=== PATIENT | female | born 1960 | race Caucasian/White ===

== ENCOUNTER 2019-05-04 03:17 | Observation (INO) | payer OTHER, MEDICARE, SELFPAY ==
[2019-05-04] VITALS (12 sets, daily range): BP systolic 127–171; BP diastolic 75–90; PULSE 55–75; RESP 16–20; TEMP 35.6–36.3; O2SAT 98–100; BMI 32.4
--- NOTE | ~2019-05-04 | CT_ITS ---
EXAMINATION: CTA brain EXAM DATE: 05/04/2019 14:42 INDICATION: New onset severe headache, left side. TECHNIQUE: Noncontrast head CT. Spiral CT angiogram cerebral arteries performed with intravenous in jection of 100 mL Omnipaque 350. Axial, coronal and sagittal images reviewed. Additional reformatted images created on dedicated 3-D workstation. The dose-length product (DLP) for this examination was 1129.98 mGy-cm. The exposure was tailored according to patient size, and iterative reconstruction (ASIR) was used as additional dose reduction technique. There is no prior study for comparison. FINDINGS: Left vertebral artery is dominant. There is no distal carotid or vertebral basilar arteri al dissection or fibromuscular dysplasia. There are no cerebral artery aneurysms. There is symmetric cerebral artery arborization. The sagittal, transverse and sigmoid sinuses enhance normally, no venou s sinus thrombosis. Internal cerebral veins also enhance normally. There is no acute intraparenchymal hemorrhage. No evidence of intraparenchymal brain mass lesion. N o evidence of acute infarction. There is no mass effect or midline shift. There is no obstructive hyd rocephalus suspected. There are no extra-axial collections. There are no calvarial acute fractures. There are no areas of abnormal enhancement on the post contrast images. IMPRESSION: 1. No acute intracranial findings or cerebral artery aneurysm. Reviewed, dictated and finalized at location A.
--- NOTE | ~2019-05-04 | CT_ITS ---
EXAMINATION: CTA chest abdomen pelvis DATE: 05/04/2019 11:46 CDT INDICATION: Chest pain. Hypertension. TECHNIQUE: Computed tomographic angiography (CTA) of the chest, abdomen, and pelvis was performed wit h 100 mL Omnipaque-350 intravenous contrast. The dose-length product was 1108.15 mGy-cm. Maximum inte nsity projection 3D-reconstructions of the aorta and other arteries were constructed by the technolog ist on a separate workstation. COMPARISON: CT dated 02/07/2019. FINDINGS: CHEST CTA: No thoracic lymphadenopathy. No evidence for aortic aneurysm or dissection. Study is technically adeq uate without evidence for pulmonary embolism. No focal airspace consolidation. No pleural or pericard ial effusion. Heart size normal. No suspicious pulmonary nodules or masses. ABDOMEN AND PELVIS CTA: The liver, spleen, pancreas, adrenal glands and kidneys are unremarkable. Gallbladder is surgically a bsent with expected prominence of the bile ducts. Nonobstructive bowel gas pattern. No abnormal pelvi c masses or fluid collections. No free air or free fluid. Small fat-containing umbilical hernia. No a cute bone or joint abnormality. No osteolytic or osteoblastic lesions. IMPRESSION: 1. No acute abnormality of the chest, abdomen or pelvis. Reviewed, dictated and finalized at location A.
--- NOTE | 2019-05-04 03:52 | ECG_ITS ---
Measurements Intervals [place] Rate: 75 P: 62 OR: 137 QRS: 67 QRSD: 92 T: 47 QT: 391 QTc: 437 Interpretive Statements SINUS RHYTHM NORMAL ECG Electronically Signed On 05-04-2019 8:30:07 CDT by Jimmy Leiva D.O.
[2019-05-04] MEDS: NITROGLYCERIN SL 0.4 MG TABLET SUBLINGUAL ×2 (04:00→08:03)
--- NOTE | 2019-05-04 04:10 | ED.CHESTPAIN ---
HPI - Chest Pain General Chief Complaint: Chest Pain <Karena Sandy MD - Last Filed: 05/04/19 06:03> Stated Complaint: cp, back pain and high blood pressure <Karena Sandy MD - Last Filed: 05/04/19 06:03> Time Seen by Provider: 05/04/19 03:33 <Karena Sandy MD - Last Filed: 05/04/19 06:03> Source: patient <Karena Sandy MD - Last Filed: 05/04/19 06:03> Mode of arrival: ambulatory <Karena Sandy MD - Last Filed: 05/04/19 06:03> Limitations: no limitations <Karena Sandy MD - Last Filed: 05/04/19 06:03> History of Present Illness HPI narrative: Patient is a 59-year-old female who presents to the emergency department with complaint of chest and back pain. Patient reports onset of symptoms approximately 24 hours ago. Patient describes the pain as a pressure and tightness in her chest and back. She also reports having right shoulder pain for the past 3 days which preceded the chest and back pain. Patient has history of hypertension and just saw her chromium plater a couple of days ago. She reports her chromium plater had discontinued 1 of her blood pressure medicines a couple of months ago as her blood pressure had improved significantly. When she was seen a few days ago her blood pressure was again elevated and her chromium plater changed her blood pressure medication. Patient has also been noticing some headaches. She also reports stomach issues for which she has been seeing a showroom consultant. Patient denies any history of coronary disease or other cardiac problems aside from high blood pressure. <Karena Sandy MD - Last Filed: 05/04/19 06:03> MD complaint: chest pain <Karena Sandy MD - Last Filed: 05/04/19 06:03> Onset (ago): day(s) (1) <Karena Sandy MD - Last Filed: 05/04/19 06:03> Timing of current episode: constant <Karena Sandy MD - Last Filed: 05/04/19 06:03> Quality: tightness and other (pressure) <Karena Sandy MD - Last Filed: 05/04/19 06:03> Risk Factors Coronary artery disease risk factors: smoking history and hypertension <Karena Sandy MD - Last Filed: 05/04/19 06:03> Related Data Home Medications: Home Medications Medication Instructions Recorded Confirmed atorvastatin 40 mg PO HS 05/04/19 05/04/19 metoprolol succinate 50 mg PO HS 05/04/19 05/04/19 nortriptyline 20 mg PO HS 05/04/19 05/04/19 valsartan 80 mg PO DAILY 05/04/19 05/04/19 <Karena Sandy MD - Last Filed: 05/04/19 06:03> Allergies/Adverse Reactions: Allergies Allergy/AdvReac Type Severity Reaction Status Date / Time Penicillins Allergy Unknown Unknown Verified 05/04/19 07:58 <Karena Sandy MD - Last Filed: 05/04/19 06:03> Review of Systems Review of Systems: All systems reviewed & are unremarkable except as noted in HPI and below <Karena Sandy MD - Last Filed: 05/04/19 06:03> Cardiovascular: Cardiovascular: Reports chest pain <Karena Sandy MD - Last Filed: 05/04/19 06:03> Musculoskeletal: Musculoskeletal: Reports back pain, Reports arthralgias (Right shoulder) and Reports neck pain (Chronic with arm pain) <Karena Sandy MD - Last Filed: 05/04/19 06:03> [facility] Past Medical History Medical History: Medical History (Updated 05/04/19 @ 09:37 by Sigifredo Murguia MD) Arthralgia Cervical spinal stenosis Chronic abdominal pain Hypertension Interstitial cystitis Migraine Other and unspecified hyperlipidemia <Karena Sandy MD - Last Filed: 05/04/19 06:03> Surgical History Surgical History: Surgical History History of cholecystectomy <Karena Sandy MD - Last Filed: 05/04/19 06:03> Family History Family History: Family History Father CAD (coronary artery disease) Cerebral aneurysm
[2019-05-04 04:32] LABS: INR 0.9; Prothrombin Time 11.3 Seconds (11.1-14.7)
[2019-05-04 04:33] LABS: Alanine Aminotransferase 44 U/L (4-35); Albumin Level 4.4 g/dL (3.5-5.1); Alkaline Phosphatase 88 U/L (38-126); Aspartate Amino Transferase 37 U/L (14-36); Bilirubin,Total 0.4 mg/dL (0.2-1.3); Blood Urea Nitrogen 17 mg/dL (7-17); Calcium 9.6 mg/dL (8.4-10.2); Carbon Dioxide 24 mmol/L (22-30); Chloride 105 mmol/L (98-107); Estimated Glomerular Filt Rate > 60; Glucose 97 mg/dL (65-105); Partial Thromboplastin Time 21.3 SECONDS (22.3-36.8); Potassium 3.7 mmol/L (3.4-5.0); Sodium 136 mmol/L (137-145)
[2019-05-04 04:47] LABS: NT Pro B Type Natriuretic Pept 46 PG/ML (5-100); Troponin I < 0.012 ng/mL (0.000-0.034)
[2019-05-04 04:58] LABS: Add Urine Microscopic? YES; Appearance Urine Clear (Clear); Bacteria Urine Trace /hpf; Bilirubin Urine Negative (Negative); Blood Urine Negative (Negative); Color Urine Yellow (Yellow); Glucose Urine UA Negative (Negative); Ketones Urine Negative (Negative); Leukocyte Esterase Ur 1+ LEU/UL (Negative); Mucus Urine Rare /lpf; Nitrate Urine Negative (Negative); Protein Urine Negative (Negative); RBC Urine 0-2 /hpf (0-2); Specific Grav Ur 1.021 (1.001-1.035); Squamous Epithelial Cell Urine Many /hpf (Few); Urobilinogen Urine Negative mg/dL (<2.0)
[2019-05-04 05:29] LABS: Basophils Absolute Auto 0.1 K/mm3 (0.0-0.1); Basophils Percent Auto 0.7 % (0.2-1.2); Eosinophils Absolute Auto 0.2 K/mm3 (0-0.3); Eosinophils Percent Auto 2.6 % (0-4.4); Hematocrit 42.2 % (37.0-47.0); Hemoglobin 13.9 g/dL (12.0-15.0); Immature Granulocyte Absolute 0.03 K/mm3 (0.00-0.031); Immature Granulocyte Percent A 0.4 % (0-0.5); Lymphocytes Absolute Auto 2.99 K/mm3 (0.9-3.2); Lymphocytes Percent Auto 35.6 % (18.3-44.2); Mean Corpuscular HGB Conc 32.9 g/dl (32-36); Mean Corpuscular Hemoglobin 30.5 pg (26-34); Mean Corpuscular Volume 92.5 fl (80-100); Mean Platelet Volume 10.2 fl (7.4-10.4); Monocytes Absolute Auto 0.6 K/mm3 (0.1-0.6); Monocytes Percent Auto 7.3 % (2.6-8.5); Neutrophils Absolute Auto 4.5 K/mm3 (1.3-6.7); Neutrophils Percent Auto 53.4 % (45.5-73.1); Platelet Count Result 304 k/mm3 (150-375); Red Blood Count 4.56 M/mm3 (4.2-5.4); Red Cell Distribution Width 13.1 % (11.5-14.5); White Blood Count 8.4 K/mm3 (4.5-10.0)
[2019-05-04] MEDS: NITROGLYCERIN OINTMENT 1 INCH DOSE TRANSDERM (06:07)
[2019-05-04] MEDS: ACETAMINOPHEN 325 MG TABLET 650 MG PO ×2 (07:25→07:26)
[2019-05-04 07:44] LABS: Troponin I < 0.012 ng/mL (0.000-0.034)
--- NOTE | 2019-05-04 07:48 | ADMGEN ---
This patient, Mireya More, was admitted to IMU Room 206-02. Patient/family oriented to hospital policies and general routines including ID bracelet, bed and alarms, visiting hours, pain management, procedures, bathroom and other care routines, personal items, smoking policy, room service/diet, and visiting hours. Valuables list has been completed. Information on how to activate the Rapid Response Team has been discussed. Patient/Family are encouraged to report perceived risks to care and to ask questions if they do not understand what they are told or what they should do.
[2019-05-04] MEDS: ASPIRIN 81 MG CHEWABLE TABLET PO (08:02)
--- NOTE | 2019-05-04 09:28 | PM.SD ---
Same Day Admit/Disch: HPI History of Present Illness Chief complaint: chest pain, hypertension Narrative: Mireya More is a 59 year old female was in her usual state of health until 1 week prior to admission. She felt throbbing left-sided headache. Moderately severe. No associated neurologic symptoms. She has chronic paresthesias both arms with a history of cervical spine stenosis. This is chronic and worse when she extends the neck. She had no visual symptoms no focal weakness or numbness. She has a history of migraine headaches but has not had any for several years. On April she developed right shoulder pain that radiated to her back and substernal area. It was mild to moderate in nature. Described as a pressure. it was constant. No aggravating or alleviating factors. She did have some increased palpitations and anxiety with the pain. No other associated symptoms such as dizziness lightheadedness or shortness of breath. She has never had similar pain. She quit smoking just a few weeks ago. She has hyperlipidemia and a family history of coronary artery disease in her father. Her blood sugars have been normal. [facility] Past Medical History Medical History (Updated 05/04/19 @ 09:37 by Sigifredo Murguia MD) Arthralgia Cervical spinal stenosis Chronic abdominal pain Hypertension Interstitial cystitis Migraine Other and unspecified hyperlipidemia Surgical History Surgical History History of cholecystectomy Family History Family History Father CAD (coronary artery disease) Cerebral aneurysm Diabetes mellitus Sibling Diabetes mellitus Social History Social History (Updated 05/04/19 @ 09:38 by Sigifredo Murguia MD) Smoking status: Former smoker Additional smoking assessment comments: Quit smoking 1 month ago, previously 1 pack/day Alcohol intake: never Substance use: never Occupation/Education: retired Additional occupation/education comments: disabled Gender identity (if verbalized by the patient): Female Spiritual care concerns: Yes (Spiritism) Agree to blood products: Yes Same Day Admit/Disch: Med Pre-admit Medications Home Medications Medication Instructions Recorded Confirmed Type atorvastatin 40 mg PO HS 05/04/19 05/04/19 History metoprolol succinate 50 mg PO HS 05/04/19 05/04/19 History nortriptyline 20 mg PO HS 05/04/19 05/04/19 History valsartan 80 mg PO DAILY 05/04/19 05/04/19 History Exam Narrative: Exam Narrative: HEENT: EOMI, PERRL,sclerae nonicteric, pharyngeal mucosa pink and intact NECK: No JVD, adenopathy, or thyromegaly CHEST: Clear to auscultation. Normal effort. HEART: NL S1/S2, regular, no murmur ABDOMEN: BS+, soft, nontender, no mass, no bruits EXTREMITIES: No cyanosis, edema, or clubbing NEUROLOGIC: CN intact and symmetric to inspection. DTR intact in both upper and lower extremities and symmetric. Babinski's negative. MUSCULOSKELETAL: Tone and strength symmetric. Extension of neck causes posterior neck pain. Range of motion and strength in upper extremities unremarkable without producing pain. PSYCH: Alert. Oriented to person, place, and time. She is very emotional and intermittently tearful when discussing her medical history. DS: Data Data Completed and Pending Labs on day of discharge: Labs from last 24 hours 05/04/19 05/04/19 05/04/19 07:07 05:25 04:33 WBC 8.4 RBC 4.56 Hgb 13.9 Hct 42.2 MCV 92.5 MCH 30.5 MCHC 32.9 RDW 13.1 Plt Count 304 MPV 10.2 Immature Gran % (Auto) 0.4 Neut % (Auto) 53.4 Lymph % (Auto) 35.6 [place] % (Auto) 7.3 Eos % (Auto) 2.6 Baso % (Auto) 0.7 Lymph # (Auto) 2.99 [place] # (Auto) 0.6 Eos # (Auto) 0.2 Baso # (Auto) 0.1 Abs Immat Gran (auto) 0.03 Absolute Neuts (auto) 4.5 Absolute Nucleated RBC 0.0 Nucleated RBC % 0.0
[2019-05-04 10:33] LABS: Troponin I < 0.012 ng/mL (0.000-0.034)
[2019-05-04] MEDS: VALSARTAN 40 MG TABLET PO (11:46)
[2019-05-04] MEDS: IBUPROFEN 400 MG TABLET 800 MG PO (11:56)
[2019-05-04] MEDS: METOPROLOL SUCCINATE EXT REL 50 MG TABCR PO (17:39)
== END 2019-05-04 18:20 | disposition home or self-care (01) ==
LOC: ANHED 05:10 → ANHIMU 09:51
PROVIDERS: Admitting Provider Internal Medicine; Emergency Provider Emergency Medicine; PCP Nurse Practitioner Family; Visit Provider Internal Medicine
DX: R07.9 Chest pain, unspecified (principal); I10 Essential (primary) hypertension; R10.9 Unspecified abdominal pain; G89.29 Other chronic pain; M25.511 Pain in right shoulder; R51 Headache; M48.02 Spinal stenosis, cervical region; E78.5 Hyperlipidemia, unspecified; Z79.899 Other long term (current) drug therapy; Z87.891 Personal history of nicotine dependence; Z82.49 Family history of ischemic heart disease and other diseases of the circulatory system
CPT/HCPCS: 36415; 70496; 71275; 74174; 80053; 81001; 83880; 84484; 85025; 85610; 85730; 87086; 87088; 93005; 99199; 99285; A9270; Q9967

== ENCOUNTER 2019-12-24 15:32 | Outpatient (CLI) | payer OTHER, MEDICARE, SELFPAY ==
--- NOTE | ~2019-12-24 | MM_ITS ---
EXAMINATION: MM screening [facility] BI w angela HISTORY: Screening mammogram TECHNIQUE: Craniocaudal and mediolateral oblique 3-D tomosynthesis images were obtained and synthetic 2-D images were generated. CAD analysis was submitted and interpreted. COMPARISON: 12/04/2018, 01/29/2018, 11/01/2017 bilateral digital mammogram examinations BREAST PARENCHYMAL COMPOSITION: The breasts are almost entirely fatty. FINDINGS: There is no evidence of suspicious mass, calcification, or architectural distortion to sugg est malignancy in either breast. There has been no suspicious interval change. IMPRESSION: 1. No mammographic evidence of malignancy. 2. Recommend routine screening mammography in one year. BI-RADS Category 1: Negative Reviewed, dictated and finalized at location A.
== END 2019-12-24 15:33 | disposition home or self-care (01) ==
LOC: ANHIMG 15:35
PROVIDERS: PCP Physician Assistant; Visit Provider Physician Assistant
DX: Z12.31 Encounter for screening mammogram for malignant neoplasm of breast (principal)
CPT/HCPCS: 77063; 77067

== ENCOUNTER → 2020-01-01 12:40 | Outpatient (CLI) | payer OTHER, MEDICARE, SELFPAY ==
--- NOTE | ~2020-01-01 | XR_ITS ---
EXAMINATION: XR cervical spine 4-5V DATE: 01/01/2020 13:33 INDICATION: Cervical radiculopathy. TECHNIQUE: 4 views of cervical spine were obtained. COMPARISON: None. FINDINGS: There is 6 degrees dextrocurvature of cervical spine. There is 2 mm retrolisthesis of C4 on C5 and C5 on C6. Vertebral body heights are normal. There is mildly decreased disc height at C4-C5 a nd moderately decreased disc height at C5-C6 and C6-C7. There is multilevel mild facet joint osteoart hritis. There is multilevel uncovertebral joint osteoarthritis, severe bilaterally at C5-C6 and C6-C7 . There is mild central canal stenosis at C4-C5, C5-C6, and C6-C7. No prevertebral soft tissue swelli ng. IMPRESSION: 1. Moderate cervical spondylosis. Reviewed, dictated and finalized at location A. CHILLA FARMER
--- NOTE | ~2020-01-01 | XR_ITS ---
EXAMINATION: XR lumbar spine 2-3V DATE: 01/01/2020 13:33 INDICATION: Lumbar radiculopathy. TECHNIQUE: 3 views of lumbar spine were obtained. COMPARISON: CT abdomen and pelvis 02/07/2019 FINDINGS: There is 3 degrees dextrocurvature of lumbar spine. Vertebral body heights and intervertebr al disc heights are normal. There are endplate osteophytes at most levels. There is multilevel severe facet joint osteoarthritis in lumbar spine. IMPRESSION: 1. Mild lumbar spondylosis. Reviewed, dictated and finalized at location A. WHEELER IMPRESSION: 1. Mild lumbar spondylosis.
== END ==
PROVIDERS: PCP Physician Assistant; Visit Provider Pain Medicine Interventional Pain Medicine
DX: E66.9 Obesity, unspecified (principal); F33.1 Major depressive disorder, recurrent, moderate; F41.1 Generalized anxiety disorder; G56.03 Carpal tunnel syndrome, bilateral upper limbs; M47.22 Other spondylosis with radiculopathy, cervical region; M47.23 Other spondylosis with radiculopathy, cervicothoracic region; M47.896 Other spondylosis, lumbar region
CPT/HCPCS: 72050; 72100

== ENCOUNTER 2020-08-09 14:27 | Outpatient (CLI) | payer OTHER, MEDICARE, SELFPAY ==
--- NOTE | ~2020-08-09 | MR_ITS ---
EXAMINATION: MR lumbar spine wo con DATE: 08/09/2020 15:12 INDICATION: Lumbar radiculopathy. TECHNIQUE: Magnetic resonance imaging (MRI) of the lumbar spine was performed without intravenous con trast. Sequences included sagittal T2-weighted FSE, sagittal T2-weighted FS FSE, sagittal T1-weighted FSE, and axial T2-weighted FSE. COMPARISON: Lumbar spine radiographs dated 01/01/2020 FINDINGS: 7 degree lumbar dextroscoliosis. 2 mm retrolisthesis L2 on L3. Vertebral body heights are normal. T1 hyperintense hemangioma at L1. Fibrovascular degenerative endplate changes at L2-L3 and at the rey superior margins of T11 and T12. Marrow signal is otherwise unremarkable. Mild disc height loss at T1 0-T11, T11-T12 and L2-L3. Disc desiccation without significant disc height loss at L3-L4 and L4-L5. T he conus medullaris terminates at L2-L3. There is normal signal in the caudal spinal cord. Paraverteb ral soft tissues are unremarkable. The following disc levels are specifically discussed: T12-L1: Disc is mildly bulging. There is moderate bilateral facet joint osteoarthritis. There is mild left neural foraminal stenosis. There is minimal central canal stenosis. L1-L2: Disc is mildly bulging. There is mild hypertrophy of the ligamentum flavum. There is severe b ilateral facet joint osteoarthritis. There is minimal bilateral neural foraminal stenosis. There is m ild central canal stenosis. L2-L3: Disc is bulging. There is hypertrophy of the ligamentum flavum. There is moderate left and sev ere right facet joint osteoarthritis. There is moderate left and mild to moderate right neural forami nal stenosis. There is moderate to severe central canal stenosis with minimal CSF signal surrounding the centrally clustered nerve roots. L3-L4: Disc is bulging. There is hypertrophy of the ligamentum flavum. There is moderate to severe bi lateral facet joint osteoarthritis. There is moderate left and mild to moderate right neural foramina l stenosis. There is moderate central canal stenosis. L4-L5: Disc is bulging. There is hypertrophy of the ligamentum flavum. There is severe bilateral face t joint osteoarthritis. There is moderate right and mild to moderate left neural foraminal stenosis. There is moderate central canal stenosis. L5-S1: The disc does not extend beyond the endplate margin. There is severe bilateral facet joint ost eoarthritis. There is mild bilateral neural foraminal stenosis. There is no central canal stenosis. IMPRESSION: 1. Mild lumbar dextrocurvature. 2. Lumbar spondylosis with multilevel mild degenerative disc disease, moderate to severe facet osteoa rthritis, multilevel mild to moderate neural foraminal stenosis and moderate to severe central canal stenosis at L2-L3 through L4-L5 Reviewed, dictated and finalized at location A. IMPRESSION: 1. Mild lumbar dextrocurvature. 2. Lumbar spondylosis with multilevel mild degenerative disc disease, moderate to severe facet osteoarthritis, multilevel mild to moderate neural foraminal st enosis and moderate to severe central canal stenosis at L2-L3 through L4-L5
== END 2020-08-09 14:28 ==
PROVIDERS: PCP Physician Assistant
DX: M47.26 Other spondylosis with radiculopathy, lumbar region (principal); M51.36 Other intervertebral disc degeneration, lumbar region
CPT/HCPCS: 72148

== ENCOUNTER 2020-12-27 14:52 | Outpatient (CLI) | payer OTHER, MEDICARE, SELFPAY ==
--- NOTE | ~2020-12-27 | MM_ITS ---
EXAMINATION: MM screening [facility] BI w angela HISTORY: Screening TECHNIQUE: Craniocaudal and mediolateral oblique 3-D tomosynthesis images were obtained and synthetic 2-D images were generated. CAD analysis was submitted and interpreted. COMPARISON: 11/01/2017 BREAST PARENCHYMAL COMPOSITION: There are scattered areas of fibroglandular density. FINDINGS: There is no evidence of suspicious mass, calcification, or architectural distortion to sugg est malignancy in either breast. There has been no suspicious interval change. IMPRESSION: 1. No mammographic evidence of malignancy. 2. Recommend routine screening mammography in one year. BI-RADS Category 1: Negative Reviewed, dictated and finalized at location A.
== END 2020-12-27 14:53 | disposition home or self-care (01) ==
LOC: ANHIMG 14:58
PROVIDERS: PCP Physician Assistant; Visit Provider Physician Assistant
DX: Z12.31 Encounter for screening mammogram for malignant neoplasm of breast (principal)
CPT/HCPCS: 77063; 77067

== ENCOUNTER 2021-01-12 13:16 | Outpatient (CLI) | payer OTHER, MEDICARE, SELFPAY ==
--- NOTE | ~2021-01-12 | XR_ITS ---
EXAMINATION: XR shoulder LT min 2V DATE: 01/12/2021 14:04 INDICATION: Left rotator cuff tear. TECHNIQUE: 4 views of left shoulder were obtained. COMPARISON: None. FINDINGS: Bone alignment is normal. No fracture. Glenohumeral joint is normal. There is mild acromioc lavicular joint osteoarthritis. IMPRESSION: 1. Mild left acromioclavicular joint osteoarthritis. Reviewed, dictated and finalized at location A. LIFT MECHANIC
--- NOTE | ~2021-01-12 | MR_ITS ---
EXAMINATION: MR cervical spine wo con EXAM DATE: 01/12/2021 15:03 INDICATION: Radiculopathy, cervical region Radiculopathy. TECHNIQUE: Multi-sequential, multiplanar MR images of the cervical spine were obtained without contra st. Axial T2, axial T2 MERGE sequence. Sagittal T1, T2, T2 fat saturation images also obtained. Th ere is no prior study for comparison. FINDINGS: There is moderate loss of the C5-6 disc height, mild to moderate at C6-7 and mild at C3-4. The vertebral bodies are aligned in the AP dimension. The spinal cord signal intensity and intrinsic morphology is normal. Cervicomedullary junction is normal in appearance. There are no suspicious mar row signal abnormalities. Paraspinal soft tissue is unremarkable. Small right maxillary sinus retent ion cyst or polyp. Level by level evaluation: C2-C3: Disc does not extend beyond the endplate margin. Uncovertebral joint arthropathy: None. Facet joint arthropathy: Mild bilateral. Neural foraminal stenosis: No stenosis. Central canal stenosis: No stenosis. C3-C4: Disc does not extend beyond the endplate margin. Uncovertebral joint arthropathy: None. Facet joint arthropathy: Mild bilateral. Neural foraminal stenosis: No stenosis. Central canal stenosis: No stenosis. C4-C5: There is a mild diffuse disc bulge. Uncovertebral joint arthropathy: Mild to moderate left, mild right. Facet joint arthropathy: Mild to moderate bilateral. Neural foraminal stenosis: Mild bilateral. Central canal stenosis: Mild. C5-C6: There is a mild to moderate diffuse disc bulge asymmetric to the right, causing some flattenin g of the spinal cord, but no cord edema, no acute compression. Uncovertebral joint arthropathy: Severe right, moderate left. Facet joint arthropathy: Mild to moderate bilateral. Neural foraminal stenosis: Severe right, moderate to severe left. Central canal stenosis: Mild to moderate . Central canal measures 6-7 mm in mid sagittal AP diameter . C6-C7: There is a mild diffuse disc bulge. Uncovertebral joint arthropathy: Moderate left, mild to moderate right. Facet joint arthropathy: Mild bilateral. Neural foraminal stenosis: Moderate to severe left, mild to moderate right. Central canal stenosis: Mild. C7-T1: There is a mild diffuse disc bulge. Uncovertebral joint arthropathy: Mild bilateral. Facet joint arthropathy: Mild bilateral. Neural foraminal stenosis: Mild right. Central canal stenosis: No stenosis. IMPRESSION: 1. Cervical spondylosis with C5-6, 6-7 neural foramen most narrowed. 2. Mild cord flattening from disc bulge at C5-6 without acute cord compression. Reviewed, dictated and finalized at location B. ECTIONERY COOKER IMPRESSION: 1. Cervical spondylosis with C5-6, 6-7 neural foramen most narrowed. 2. Mild cord flattening from disc bulge at C5-6 without acute cord compression .
--- NOTE | ~2021-01-12 | XR_ITS ---
EXAMINATION: XR shoulder RT min 2V DATE: 01/12/2021 14:03 INDICATION: Right shoulder pain. TECHNIQUE: 5 views of right shoulder were obtained. COMPARISON: None. FINDINGS: Bone alignment is normal. No fracture. Glenohumeral joint is normal. There is mild acromioc lavicular joint osteoarthritis. IMPRESSION: 1. Mild right acromioclavicular joint osteoarthritis. Reviewed, dictated and finalized at location A. FLOOR WORKER
== END 2021-01-12 13:17 ==
PROVIDERS: PCP Physician Assistant
DX: M47.22 Other spondylosis with radiculopathy, cervical region (principal); M19.011 Primary osteoarthritis, right shoulder; M19.012 Primary osteoarthritis, left shoulder
CPT/HCPCS: 72141; 73030

== ENCOUNTER → 2022-01-04 13:44 | Outpatient (CLI) | payer OTHER, MEDICARE, SELFPAY ==
--- NOTE | ~2022-01-04 | XR_ITS ---
EXAMINATION:XR cervical spine 4-5V DATE: 01/04/2022 14:29 INDICATION: Neck pain TECHNIQUE: AP, lateral, lateral swimmers and odontoid views of the cervical spine are provided. COMPARISON: 01/01/2020 FINDINGS: There are 2 mm of stable retrolisthesis of C4 on C5 and C5 on C6. The odontoid is intact. N o fracture is identified. The vertebral body heights are normal. There is unchanged mild loss of inte rvertebral disc space height at C4-5 and moderate loss of disc space height at C5-6 and C6-7. There i s mild multilevel facet joint osteoarthritis and severe multilevel uncovertebral joint osteoarthritis . IMPRESSION: 1. Moderate cervical spondylosis without acute findings or significant interval change. Reviewed, dictated and finalized at location B. CRUSHER OPERATOR
--- NOTE | ~2022-01-04 | XR_ITS ---
EXAMINATION: XR lumbar spine 2-3V DATE: 01/04/2022 14:29 INDICATION: Low back pain TECHNIQUE: Anteroposterior and lateral views of the lumbar spine, and cone-down lateral view of the l umbosacral junction were obtained. COMPARISON: 01/01/2020 FINDINGS: There is no fracture, dislocation, or subluxation. There is mild loss of intervertebral dis c space height at L2-3 and L3-4. Small degenerative osteophytes project from the anterior endplates o f multiple vertebral bodies. There is severe facet joint osteoarthritis of the lower lumbar spine. Ch olecystectomy clips are noted in the right upper quadrant. IMPRESSION: 1. Mild lumbar spondylosis without acute findings or significant interval change. Reviewed, dictated and finalized at location B. HANDISING ASSISTANT IMPRESSION: 1. Mild lumbar spondylosis without acute findings or significant interval viri mullins
== END ==
PROVIDERS: PCP Physician Assistant; Visit Provider Pain Medicine Interventional Pain Medicine
DX: M47.892 Other spondylosis, cervical region (principal); M47.896 Other spondylosis, lumbar region
CPT/HCPCS: 72050; 72100

== ENCOUNTER 2022-02-25 12:00 | Outpatient (CLI) | payer OTHER, MEDICARE, SELFPAY ==
--- NOTE | ~2022-02-25 | MM_ITS ---
EXAMINATION: MM screening [facility] BI w angela HISTORY: Screening mammogram TECHNIQUE: Craniocaudal and mediolateral oblique 3-D tomosynthesis images were obtained and synthetic 2-D images were generated. CAD analysis was submitted and interpreted. COMPARISON: 12/27/2020, 12/24/2019, 12/04/2018 bilateral screening mammogram examinations BREAST PARENCHYMAL COMPOSITION: The breasts are almost entirely fatty. FINDINGS: There is no evidence of suspicious mass, calcification, or architectural distortion to sugg est malignancy in either breast. There has been no suspicious interval change. IMPRESSION: 1. No mammographic evidence of malignancy. 2. Recommend routine screening mammography in one year. BI-RADS Category 1: Negative Reviewed, dictated and finalized at location A. L AID
== END 2022-02-25 12:01 | disposition home or self-care (01) ==
LOC: ANHIMG 12:11
PROVIDERS: PCP Physician Assistant; Visit Provider Physician Assistant
DX: Z12.31 Encounter for screening mammogram for malignant neoplasm of breast (principal)
CPT/HCPCS: 77063; 77067

== ENCOUNTER → 2023-04-03 14:16 | Outpatient (CLI) | payer OTHER, MEDICARE, SELFPAY ==
--- NOTE | ~2023-04-03 | XR_ITS ---
Cervical Spine: AP, lateral, open-mouth views Clinical History: Pain Findings: No acute fracture seen. There is 3 mm retrolisthesis of C4 over C5. There is moderate degen erative disc narrowing at C5-C6. Pre-vertebral soft tissues are unremarkable. Impression: 3 mm retrolisthesis of C4 over C5. Degenerative disc narrowing, as above. Reviewed, dictated and finalized at [facility]. OPEDIC BRACE MAKER Impression: 3 mm retrolisthesis of C4 over C5. Degenerative disc narrowing, as above.
--- NOTE | ~2023-04-03 | XR_ITS ---
Thoracic spine: Clinical Indication: Back pain AP and lateral views were performed. No fracture is seen. There is normal alignment of the vertebrae. The intervertebral disc spaces appe ar normal. Paravertebral soft tissues appear normal. Impression: No significant abnormalities noted. Reviewed, dictated and finalized at [facility] and [facility]. RVISOR FILTER ASSEMBLY Impression: No significant abnormalities noted.
--- NOTE | ~2023-04-03 | XR_ITS ---
Lumbosacral Spine: AP and lateral views Clinical History: Pain Findings: The normal lordotic curve is maintained. The vertebral bodies and posterior elements are i ntact. The intervertebral disc spaces are preserved. There is moderate to advanced facet arthropathy , especially the lower lumbar spine. The sacroiliac joints are normally outlined. Impression: Facet arthropathy, as detailed above. Reviewed, dictated and finalized at location . F CLINICAL DIETITIAN Impression: Facet arthropathy, as detailed above.
== END ==
PROVIDERS: PCP Pain Medicine Interventional Pain Medicine; Visit Provider Pain Medicine Interventional Pain Medicine
DX: M47.22 Other spondylosis with radiculopathy, cervical region (principal); M47.23 Other spondylosis with radiculopathy, cervicothoracic region; M47.26 Other spondylosis with radiculopathy, lumbar region; M47.27 Other spondylosis with radiculopathy, lumbosacral region
CPT/HCPCS: 72040; 72072; 72100

== ENCOUNTER 2023-05-03 10:29 | Outpatient (CLI) | payer OTHER, MEDICARE, SELFPAY ==
--- NOTE | ~2023-05-03 | XR_ITS ---
Right wrist Technique: PA, oblique, lateral, and ulnar deviation views were obtained. Clinical History: Pain Findings: No acute fracture or dislocation is seen. Osseous alignment is anatomic. Joint spaces are p reserved. Soft tissues are unremarkable. Impression: Unremarkable right wrist radiographs. Reviewed, dictated and finalized at location . KE WARFARE/MISSILE SYSTEMS OFFICER Impression: Unremarkable right wrist radiographs.
--- NOTE | ~2023-05-03 | XR_ITS ---
Left wrist Technique: PA, oblique, lateral, and ulnar deviation views were obtained. Clinical History: Pain Findings: No acute fracture or dislocation is seen. Osseous alignment is anatomic. Joint spaces are p reserved. Soft tissues are unremarkable. Impression: Unremarkable left wrist radiographs. Reviewed, dictated and finalized at location . MAKER HELPER Impression: Unremarkable left wrist radiographs.
--- NOTE | ~2023-05-03 | XR_ITS ---
Left elbow Technique: AP and lateral views were obtained. Clinical History: Pain Findings: No acute fracture or dislocation is seen. Osseous alignment is anatomic. Joint spaces are p reserved. There is no displacement of the fat pads, and soft tissues are unremarkable. Impression: Unremarkable radiographs. Reviewed, dictated and finalized at location . TS ANNOUNCER Impression: Unremarkable radiographs.
--- NOTE | ~2023-05-03 | XR_ITS ---
Right elbow Technique: AP and lateral views were obtained. Clinical History: Pain Findings: No acute fracture or dislocation is seen. Osseous alignment is anatomic. Joint spaces are p reserved. There is no displacement of the fat pads, and soft tissues are unremarkable. Impression: Unremarkable radiographs. Reviewed, dictated and finalized at location . STITCH WAISTLINE JOINER Impression: Unremarkable radiographs.
== END 2023-05-03 10:30 ==
LOC: MICIMG 10:32
PROVIDERS: PCP Pain Medicine Interventional Pain Medicine; Visit Provider Pain Medicine Interventional Pain Medicine
DX: G89.4 Chronic pain syndrome (principal); M47.27 Other spondylosis with radiculopathy, lumbosacral region; M47.26 Other spondylosis with radiculopathy, lumbar region; M47.23 Other spondylosis with radiculopathy, cervicothoracic region; M47.22 Other spondylosis with radiculopathy, cervical region
CPT/HCPCS: 73070; 73110

== ENCOUNTER 2023-08-20 14:38 | Outpatient (CLI) | payer OTHER, MEDICARE, SELFPAY ==
--- NOTE | ~2023-08-20 | MM_ITS ---
EXAMINATION: MM screening mariam BI w angela HISTORY: Screening mammogram TECHNIQUE: Craniocaudal and mediolateral oblique 3-D tomosynthesis images were obtained and synthetic 2-D images were generated. CAD analysis was submitted and interpreted. COMPARISON: 02/25/2022, 12/27/2020, 12/24/2019 BREAST PARENCHYMAL COMPOSITION:Not Dense. The breasts are almost entirely fatty FINDINGS: No suspicious mass, calcification, or architectural distortion are identified in either aurora ast to suggest malignancy. There has been no suspicious interval change. IMPRESSION: No mammographic evidence of malignancy. Recommend routine screening mammography in one year. BI-RADS Category 1: Negative Reviewed, dictated and finalized at location .
== END 2023-08-20 14:39 | disposition home or self-care (01) ==
LOC: ANHIMG 14:40
PROVIDERS: Visit Provider Physician Assistant
DX: Z12.31 Encounter for screening mammogram for malignant neoplasm of breast (principal)
CPT/HCPCS: 77063; 77067

== ENCOUNTER 2024-01-07 10:31 | Emergency (ER) | payer OTHER, MEDICARE, SELFPAY ==
--- NOTE | ~2024-01-07 | CT_ITS ---
CT abdomen pelvis w con Ordering provider: Hai Cueva MD History: 63 years Female with . ab pain . Comparison: None. Technique: CT abdomen and pelvis with IV and without oral contrast. Automated exposure control and it erative reconstruction technique were employed. The dose-length product was 1038.39 mGy-cm. 100 mL Om nipaque 350 was given IV. Findings: VISUALIZED LOWER CHEST: Atelectasis in the middle lobe. Trace of pericardial effusion. UPPER ABDOMINAL ORGANS: Liver: Mild fat infiltration. CBD measures 1.5 cm. Minimal dilatation of the intrahepatic ducts. Gallbladder: Status post cholecystectomy. Spleen: Normal. Stomach/duodenum: Normal. Pancreas: Normal. Adrenals: Normal. Kidneys: Tiny stone in the left kidney upper pole. Possible stones in the left kidney mid and lower p ole. PELVIC ORGANS: The bladder is underfilled with slightly thickened wall. Evaluation for cystitis advis ed. BOWEL AND MESENTERY: Colon: No evidence of diverticulitis. Fecal material is loaded in the right side of the colon. Normal appendix. Small Bowel: Normal. No obstruction. Peritoneum/mesentery: No free air or free fluid. No mesenteric lymphadenopathy. RETROPERITONEUM: Mild atheromatous disease of the abdominal aorta. Narrowing of the origin of the ce liac artery. No retroperitoneal lymphadenopathy. MUSCULOSKELETAL: Superficial soft tissues: Small fat-containing umbilical hernia. Otherwise, The superficial soft tiss ues are normal. Bones: Age appropriate degenerative changes of the spine. IMPRESSION: 1. No evidence of appendicitis, diverticulitis or intestinal obstruction. 2. Slight intrahepatic biliary dilatation with dilated CBD. 3. Tiny left kidney stone. 4. Constipation. 5. Atelectasis in the right middle lobe. Trace of pericardial effusion. Reviewed, dictated and finalized at location A. CTOR OF LITIGATION
[2024-01-07 10:42] VITALS: BP 114/88; PULSE 58; RESP 20; TEMP 36.6; O2SAT 100
--- NOTE | 2024-01-07 12:43 | ED.GENADULT ---
HPI - General Adult General Chief complaint: Abdominal Pain Stated complaint: abd pain Time Seen by Provider: 01/07/24 12:20 History of Present Illness HPI narrative: 63-year-old female presents to the emergency department for evaluation for upper abdominal pain that is reminiscent to her prior episodes of pancreatitis. Patient does have prior history gallbladder sludging cholecystitis. Patient does have a prior history of cholecystectomy. Patient denies any alcohol consumption. Related Data Home Medications Medication Instructions Recorded Confirmed atorvastatin 40 mg tablet 40 mg PO HS 05/04/19 05/04/19 metoprolol succinate 50 mg 50 mg PO HS 05/04/19 05/04/19 tablet,extended release 24 hr nortriptyline 10 mg capsule 20 mg PO HS 05/04/19 05/04/19 valsartan 80 mg tablet 80 mg PO DAILY 05/04/19 05/04/19 Allergies Allergy/AdvReac Type Severity Reaction Status Date / Time Penicillins Allergy Unknown Unknown Verified 01/07/24 10:44 Review of Systems Review of Systems: All systems reviewed & are unremarkable except as noted in HPI and below PMFSH Past Medical History Medical History (Updated 01/07/24 @ 16:28 by Hai Cueva MD) Arthralgia Cervical spinal stenosis Chronic abdominal pain Hypertension Interstitial cystitis Migraine Other and unspecified hyperlipidemia Surgical History Surgical History (Updated 01/02/24 @ 01:00 by Keisha Guadalupe MD) History of cholecystectomy 1995 Family History Family History Father CAD (coronary artery disease) Cerebral aneurysm Diabetes mellitus Sibling Diabetes mellitus Social History Social History (Updated 05/04/19 @ 09:38 by Sigifredo Murguia MD) Smoking status: Former smoker Additional smoking assessment comments: Quit smoking 1 month ago, previously 1 pack/day Alcohol intake: never Substance use: never Occupation/Education: retired Additional occupation/education comments: disabled Gender identity (if verbalized by the patient): Female Spiritual care concerns: Yes ([employer]) Agree to blood products: Yes Exam Narrative: APPEARANCE: Uncomfortable appearing HEAD: normocephalic, atraumatic. EYES: PERRLA/EOMI, conjunctivae clear. NOSE: Normal no drainage EARS:TMS clear with good light reflex. THROAT: Pharynx clear, no exudate. NECK: Supple. No adenopathy, no masses. RESPIRATORY: Airway patent, respirations nonlabored. Clear to auscultation bilaterally, no rales, rhonchi, wheezing. CARDIOVASCULAR: Regular rate and rhythm without murmurs rubs or gallops. ABDOMINAL: Epigastric tenderness to palpation MUSCULOSKELETAL: Moves all extremities. Strength/ROM intact, No edema, No calf tenderness. NEURO: Alert. Cranial nerves II through XII intact. Good gait. Good coordination SKIN: Warm, dry. Normal Color Course Vital Signs Vital signs: Vital Signs Temperature 97.9 F 01/07/24 10:42 Pulse Rate 58 L 01/07/24 10:42 Respiratory Rate 20 01/07/24 10:42 Blood Pressure 114/88 01/07/24 10:42 Pulse Oximetry 100 01/07/24 10:42 Oxygen Delivery Room Air 01/07/24 10:42 Temperature 97.9 F 01/07/24 10:42 Pulse Rate 60 01/07/24 16:40 Respiratory Rate 16 01/07/24 16:40 Blood Pressure 145/76 H 01/07/24 16:40 Pulse Oximetry 100 01/07/24 16:40 Oxygen Delivery Room Air 01/07/24 10:42 Medical Decision Making MDM Narrative Medical decision making narrative: 63-year-old female presents to the emergency department for evaluation for epigastric pain that felt similar to her previous pancreatitis. Patient is afebrile with no leukocytosis and hemoglobin of 14.4. Patient has no significant abnormalities on her CMP but does have a mildly elevated lipase. UA was negative for infection. CT scan showed normal pancreas with no other acute pathology. On re-evaluation patient does feel improved and appears to be in no significant distress. Patient was advised to follow a clear liquid diet and is being provided medication for pain control and nausea control. Patient was encouraged on reasons to return to the emergency department. All questions concerns were addressed. Patient does have follow-up with GI on Sunday. Differential Diagnosis Differential Diagnosis: Colitis, diverticulitis, appendicitis, pancreatitis, bowel obstruction Vital Signs Vital Signs: Vital Signs Temperature 97.9 F 01/07/24 10:42 Pulse Rate 58 L 01/07/24 10:42 Respiratory Rate 20 01/07/24 10:42 Blood Pressure 114/88 01/07/24 10:42 Pulse Oximetry 100 01/07/24 10:42 Oxygen Delivery Room Air 01/07/24 10:42 Temperature 97.9 F 01/07/24 10:42 Pulse Rate 60 01/07/24 16:40 Respiratory Rate 16 01/07/24 16:40 Blood Pressure 145/76 H 01/07/24 16:40 Pulse Oximetry 100 01/07/24 16:40 Oxygen Delivery Room Air 01/07/24 10:42 Lab Data Lab results reviewed: Yes I reviewed the patient's lab results. 01/07/24 12:42 01/07/24 13:48 Labs: Lab Results 01/07/24 01/07/24 01/07/24 Range/Units 12:42 12:48 13:48 WBC 8.9 (4.5-10.0) K/mm3 RBC 4.64 (4.2-5.4) M/mm3 Hgb 14.4 (12.0-15.0) g/dL Hct 42.1 (37.0-47.0) % MCV 90.7 (80-100) fl MCH 31.0 (26-34) pg MCHC 34.2 (32-36) g/dl RDW 13.4 (11.5-14.5) % Plt Count 319 (150-375) k/mm3 MPV 10.1 (7.4-10.4) fl Immature Gran % (Auto) 0.3 (0-0.5) % Neut % (Auto) 54.3 (45.5-73.1) % Lymph % (Auto) 32.7 (18.3-44.2) % [place] % (Auto) 8.3 (2.6-8.5) % Eos % (Auto) 3.5 (0-4.4) % Baso % (Auto) 0.9 (0.2-1.2) % Lymph # (Auto) 2.90 (0.9-3.2) K/mm3 [place] # (Auto) 0.7 H (0.1-0.6) K/mm3 Eos # (Auto) 0.3 (0-0.3) K/mm3 Baso # (Auto) 0.1 (0.0-0.1) K/mm3 Abs Immat Gran (auto) 0.03 (0.00-0.031) K/mm3 Absolute Neuts (auto) 4.8 (1.3-6.7) K/mm3 Absolute Nucleated RBC 0.000 (0.0-0.012) K/mm3 Nucleated RBC % 0.0 (0.0-0.2) % Sodium 136 L (137-145) mmol/L Potassium 3.4 (3.4-5.0) mmol/L Chloride 101 (98-107) mmol/L Carbon Dioxide 31 H (22-30) mmol/L Anion Gap 4 (4-12) mmol/L BUN 21 H (7-17) mg/dL Creatinine 0.70 (0.7-1.0) mg/dL Estim Creat Clear Calc 79 ml/min Estimated GFR > 60 (59 - ) Glucose 92 (65-110) mg/dL Calcium 8.9 (8.4-10.2) mg/dL Total Bilirubin 0.5 (0.2-1.3) mg/dL AST 29 (14-36) U/L ALT 31 (6-35) U/L Alkaline Phosphatase 77 (38-126) U/L Total Protein 7.0 (6.3-8.2) g/dL Albumin 4.0 (3.5-5.1) g/dL Lipase 885 H (23-300) U/L Urine Color Yellow (Yellow) Urine Appearance Clear (Clear) Urine pH 7.5 (5.0-9.0) Ur Specific [place] 1.012 (1.001-1.035) Urine Protein Negative (Negative) mg/dL Urine Glucose (UA) Negative (Negative) mg/dL Urine Ketones Negative (Negative) mg/dL Ur Blood (Man) Negative (Negative) Urine Nitrate Negative (Negative) Urine Bilirubin Negative (Negative) Urine Urobilinogen 0.2 (<2.0) mg/dL Add Ur Microanalysis Reviewed Leukocyte Esterase Rfl 1+ H (Negative) EUGENIA/UL Urine RBC 0-2 (0-2) /hpf Urine WBC 0-5 (0-3) /hpf Ur Squamous Epith Cells None seen (Few) /hpf Urine Bacteria None seen /hpf Urine Casts 0-2 Imaging Data Radiologist's impression: Impressions Abdomen/Pelvis CT 01/07/24 14:38 IMPRESSION: 1. No evidence of appendicitis, diverticulitis or intestinal obstruction. 2. Slight intrahepatic biliary dilatation with dilated CBD. 3. Tiny left kidney stone. 4. Constipation. 5. Atelectasis in the right middle lobe. Trace of pericardial effusion. Discharge Plan Discharge Clinical Impression: Pancreatitis Patient Disposition: Home, Self-Care Condition: Stable Instructions: Antibiotic Form, Pancreatitis (ED), Clear Liquid Diet (ED), Abdominal Pain (ED) Additional Instructions: Continue have close follow-up with GI. Follow a clear liquid diet. Ferrum for pain control. Zofran for nausea control. If you have uncontrolled nausea vomiting or abdominal pain then please call or return to the emergency department. Prescriptions: New ondansetron 4 mg tablet,disintegrating 4 mg PO Q8H PRN (Reason: nausea and vomiting) Qty: 20 0RF hydrocodone-acetaminophen 5-325 mg tablet 1 tablet PO Q12H PRN (Reason: pain) Qty: 14 0RF No Action benzonatate 100 mg capsule 100 mg PO BID PRN (Reason: cough) Qty: 20 0RF ibuprofen 600 mg tablet 600 mg PO TID PRN (Reason: pain) Qty: 30 0RF acetaminophen 500 mg capsule 1,000 mg PO Q6H PRN (Reason: pain) Qty: 30 0RF guaifenesin 200 mg tablet 200 mg PO QID PRN (Reason: cough) Qty: 30 0RF doxycycline hyclate 100 mg capsule 100 mg PO DAILY 5 Days Qty: 5 0RF atorvastatin 40 mg tablet 40 mg PO HS metoprolol succinate 50 mg tablet extended release 24 hr 50 mg PO HS valsartan 80 mg Tablet 80 mg PO DAILY nortriptyline 10 mg Capsule 20 mg PO HS Follow-up/Referrals: Ishmael,SHAUNA Garcia [Primary Care Provider] -
[2024-01-07 12:47] LABS: Basophils Absolute Auto 0.1 K/mm3 (0.0-0.1); Basophils Percent Auto 0.9 % (0.2-1.2); Eosinophils Absolute Auto 0.3 K/mm3 (0-0.3); Eosinophils Percent Auto 3.5 % (0-4.4); Hematocrit 42.1 % (37.0-47.0); Hemoglobin 14.4 g/dL (12.0-15.0); Immature Granulocyte Absolute 0.03 K/mm3 (0.00-0.031); Immature Granulocyte Percent A 0.3 % (0-0.5); Lymphocytes Percent Auto 32.7 % (18.3-44.2); Mean Corpuscular HGB Conc 34.2 g/dl (32-36); Mean Corpuscular Volume 90.7 fl (80-100); Mean Platelet Volume 10.1 fl (7.4-10.4); Monocytes Absolute Auto 0.7 K/mm3 (0.1-0.6); Monocytes Percent Auto 8.3 % (2.6-8.5); Neutrophils Absolute Auto 4.8 K/mm3 (1.3-6.7); Neutrophils Percent Auto 54.3 % (45.5-73.1); Platelet Count Result 319 k/mm3 (150-375); Red Blood Count 4.64 M/mm3 (4.2-5.4); Red Cell Distribution Width 13.4 % (11.5-14.5); White Blood Count 8.9 K/mm3 (4.5-10.0)
[2024-01-07] MEDS: SODIUM CHLORIDE 0.9% IV 1,000 ML 999 ML IV CONT (13:05)
[2024-01-07] MEDS: ONDANSETRON INJ 4 MG/2 ML VIAL IV PUSH (13:05)
[2024-01-07] MEDS: HYDROmorphone HCL INJ (*CRX) 1 MG/ML SYR 0.5 MG IV PUSH (13:05)
[2024-01-07 13:11] LABS: Add Urine Microscopic? YES; Appearance Urine Clear (Clear); Bacteria Urine None Seen /hpf; Bilirubin Urine Negative (Negative); Blood Urine Negative (Negative); Color Urine Yellow (Yellow); Glucose Urine UA Negative (Negative); Ketones Urine Negative (Negative); Leukocyte Esterase Ur 1+ LEU/UL (Negative); Need Manual Microscopic Reviewed; Nitrate Urine Negative (Negative); Non Pathogenic Casts 0-2; Protein Urine Negative (Negative); RBC Urine 0-2 /hpf (0-2); Specific Grav Ur 1.012 (1.001-1.035); Squamous Epithelial Cell Urine None Seen /hpf (Few); Urobilinogen Urine 0.2 mg/dL (<2.0); WBC Urine 0-5 /hpf (0-3); pH Urine 7.5 (5.0-9.0)
[2024-01-07 14:11] LABS: Alanine Aminotransferase 31 U/L (6-35); Alkaline Phosphatase 77 U/L (38-126); Anion Gap 4 mmol/L (4-12); Aspartate Amino Transferase 29 U/L (14-36); Bilirubin,Total 0.5 mg/dL (0.2-1.3); Blood Urea Nitrogen 21 mg/dL (7-17); Calcium 8.9 mg/dL (8.4-10.2); Carbon Dioxide 31 mmol/L (22-30); Chloride 101 mmol/L (98-107); Estimated CRCL calculation 79 ml/min; Estimated Glomerular Filt Rate > 60; Glucose 92 mg/dL (65-110); Lipase 885 U/L (23-300); Potassium 3.4 mmol/L (3.4-5.0); Sodium 136 mmol/L (137-145)
--- NOTE | 2024-01-07 14:18 | PC.NURSE ---
Ct notified that pt. is ready for scan.
[2024-01-07 16:40] VITALS: BP 145/76; PULSE 60; RESP 16; O2SAT 100
[2024-01-07] MEDS: HYDROcodone/acetaminophen (*CRX) 5-325 MG TABLET 1 TAB PO (16:40)
== END 2024-01-07 16:48 | disposition home or self-care (01) ==
PROVIDERS: Emergency Provider Emergency Medicine; PCP Physician Assistant Medical
DX: K85.90 Acute pancreatitis without necrosis or infection, unspecified (principal); I10 Essential (primary) hypertension; E78.5 Hyperlipidemia, unspecified; N30.10 Interstitial cystitis (chronic) without hematuria; Z87.891 Personal history of nicotine dependence; Z90.49 Acquired absence of other specified parts of digestive tract; Z79.899 Other long term (current) drug therapy; K59.00 Constipation, unspecified
CPT/HCPCS: 36415; 74177; 80053; 81001; 83690; 85025; 87086; 96361; 96374; 96375; 99284; A9270; J1171; J2405; J7030; Q9967

== ENCOUNTER 2024-02-28 13:22 | Outpatient (CLI) | payer OTHER, MEDICARE, SELFPAY ==
--- NOTE | ~2024-02-28 | MR_ITS ---
MRI of the abdomen: Clinical indication: Abdominal pain. Technique: Coronal SSFSE ARC, WATER:coronal LAVA-FLEX, Coronal 2D FIESTA FatSat, Axial SSFSE BH ARC, Axial 3D DualEcho BH, Axial SSFSE-IR, Axial DWI b=500, Axial 2D FIESTA FatSat, pre and dynamic postco ntrast Axial LAVA ARC, postcontrast Coronal In and Opposed phase LAVA FLEX . Following intravenous ad ministration of 18 cc MultiHance gadolinium, T1-weighted fat-sat imaging was performed in the axial a nd coronal planes. COMPARISON: CT scan dated 01/07/2024 Findings: Gallbladder absent. The common bile duct is normal in course and caliber. No filling defect s are seen within the CBD. No evidence of intrahepatic biliary ductal dilatation. The pancreatic duct is normal in size. Possible mild signal loss in the liver on out of phase images relative to in phase images. No focal h epatic lesions seen. Spleen, pancreas, adrenals, kidneys appear normal. The aorta and the paraaortic regions appear normal. Impression: Probable mild fatty infiltration of liver. Status post cholecystectomy. Reviewed, dictated and finalized at location . R TRANSPORT SYSTEMS SPECIALIST Impression: Probable mild fatty infiltration of liver. Status post cholecystectomy.
== END 2024-02-28 13:23 | disposition home or self-care (01) ==
PROVIDERS: PCP Physician Assistant Medical; Visit Provider Internal Medicine Gastroenterology
DX: K85.90 Acute pancreatitis without necrosis or infection, unspecified (principal); Z90.49 Acquired absence of other specified parts of digestive tract
CPT/HCPCS: 74183; A9577

== ENCOUNTER 2024-05-01 11:58 | Outpatient (CLI) | payer OTHER, MEDICARE, SELFPAY ==
--- NOTE | ~2024-05-01 | XR_ITS ---
HISTORY: Elbow pain COMPARISON: None TECHNIQUE: 3 views of the left elbow were performed. FINDINGS: No acute fracture is identified. No elevation of the anterior or posterior fat pads are identified to suggest a supracondylar fracture . Overlying soft tissues are unremarkable. Bone mineralization is age-appropriate. IMPRESSION: No acute fracture or dislocation. Reviewed, dictated and finalized at location A. TOP SUPPORT ENGINEER
--- NOTE | ~2024-05-01 | XR_ITS ---
XR hip BI wo pelvis Ordering provider: Ede Espinoza, History: . Hip pain . Comparison: None. FINDINGS: BONES: No acute fracture or dislocation. HIP JOINT SPACES: Mild osteoarthritic changes bilaterally. SACROILIAC JOINT SPACES/LUMBAR SPINE: The sacroiliac joint spaces are normal. Mild degenerative meredith es of the visualized lower lumbar spine. PUBIC SYMPHYSIS: Pubic symphysitis. SOFT TISSUES: Normal. IMPRESSION: No acute osseous abnormality of the bilateral hips and pelvis. Reviewed, dictated and finalized at location A. RINARIAN HELPER
--- NOTE | ~2024-05-01 | XR_ITS ---
XR cervical spine 4-5V Ordering provider: Ede Espinoza, History: . Radiculopathy, cervical region . Comparison: None. FINDINGS: VERTEBRAL BODIES: Normal height and alignment. No visible fracture or subluxation. The dens is intact . DISK SPACES: Narrowing of the disc C5-C6 and C6-C7. Multilevel uncovertebral joint osteoarthritic darion nges. PARASPINOUS SOFT TISSUES: No prevertebral soft tissue swelling. IMPRESSION: No acute osseous abnormality cervical spine. Reviewed, dictated and finalized at location A. TURBINE INSTALLER
--- NOTE | ~2024-05-01 | XR_ITS ---
3 VIEWS LUMBAR SPINE Ordering provider: dEe Espinoza, History: . Radiculopathy, lumbar region . Comparison: None. FINDINGS: VERTEBRAL BODIES:Dextroscoliosis. No visible fracture or subluxation. Degenerative changes of the sp ine. DISK SPACES: Narrowing of the disc L1-L2, L2-L3, L3-4, and L4-L5. Multilevel facet joint disease. SOFT TISSUES: Atherosclerotic changes of the aorta. IMPRESSION: No acute osseous abnormality lumbar spine. Reviewed, dictated and finalized at location A. TRONIC EQUIPMENT REPAIRER
--- NOTE | ~2024-05-01 | XR_ITS ---
EXAMINATION: XR wrist LT min 3V, XR wrist RT min 3V DATE: 05/01/2024 12:53 INDICATION: Bilateral wrist pain TECHNIQUE: 1. Posteroanterior, ulnar deviation, oblique, and lateral views of the right wrist were obtained. 2. Posteroanterior, ulnar deviation, oblique, and lateral views of the left wrist were obtained. COMPARISON: 05/03/2023 FINDINGS: Alignment is normal at the bilateral wrists. No fracture. Joint spaces are normal. No erosions. Soft tissues are unremarkable. IMPRESSION: 1. Negative bilateral wrist radiographs. Reviewed, dictated and finalized at location L. IRER MAINTENANCE BUILDING IMPRESSION: 1. Negative bilateral wrist radiographs.
--- NOTE | ~2024-05-01 | XR_ITS ---
XR sacroiliac joints min 3V Ordering provider: Ede Espinoza, History: . Sacroiliitis not elsewhere classified . Comparison: None. FINDINGS: BONES: No acute fracture or dislocation. JOINTS: The bilateral sacroiliac joint spaces appear well maintained. No bony fusion of the sacroilia c joints or bony erosions. Bilateral hip mild osteoarthritic changes. Degenerative changes of the spi ne. SOFT TISSUES: Unremarkable. IMPRESSION: NO ACUTE OSSEOUS ABNORMALITY. NORMAL SACROILIAC JOINTS. Reviewed, dictated and finalized at location A. L DRIVER
--- NOTE | ~2024-05-01 | XR_ITS ---
EXAMINATION: XR elbow RT min 3V DATE: 05/01/2024 12:53 INDICATION: Right elbow pain TECHNIQUE: Anteroposterior, two oblique and lateral views of the right elbow were obtained. COMPARISON: None. FINDINGS: Alignment is normal. No fracture or joint effusion. Minimal osteoarthritis at the right elbow joint. Soft tissues are unremarkable. IMPRESSION: 1. 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 Reviewed, dictated and finalized at location L. ER AISLE CASHIER
== END 2024-05-01 11:59 | disposition home or self-care (01) ==
PROVIDERS: PCP Physician Assistant Medical; Visit Provider Pain Medicine Interventional Pain Medicine
DX: M46.1 Sacroiliitis, not elsewhere classified (principal); G89.4 Chronic pain syndrome; M25.529 Pain in unspecified elbow; M25.559 Pain in unspecified hip; M25.549 Pain in joints of unspecified hand
CPT/HCPCS: 72050; 72100; 72202; 73080; 73110; 73521

== ENCOUNTER 2024-07-06 14:42 | Emergency (ER) | payer OTHER, MEDICARE, SELFPAY ==
--- NOTE | ~2024-07-06 | XR_ITS ---
XR chest 2V Ordering provider: Hai Cueva MD History: 64 years Female with . CP-High BP . Comparison: May 08, 2018 FINDINGS: MEDIASTINUM: The cardiac silhouette is not enlarged. LUNGS: No infiltrates, effusions or pneumothorax. OTHER: No free air under the diaphragm. Degenerative changes of the spine. IMPRESSION: No acute cardiopulmonary pathology. Reviewed, dictated and finalized at location A.
--- NOTE | 2024-07-06 14:43 | ECG_ITS ---
Test Date: 2024-07-06 14:53:09 Measurements Intervals [place] Rate: 60 P: 54 IA: 112 QRS: 33 QRSD: 84 T: 32 QT: 399 QTc: 400 Interpretive Statements SINUS RHYTHM WITH SHORT IA INTERVAL Compared to ECG 12/31/2023 14:06:13 NO SIGNIFICANT CHANGES Electronically Signed On 07-08-2024 14:08:32 CDT by Zenobia Cordova M.D.
--- OUTSIDE RECORDS SUMMARY | 2024-07-06 14:44 | XMS_ITS | Clinical Summary ---
Author Organization [facility] [employer] Address [address] [place] [address] Care Team Providers Care Business Performance Analyst Name Role Phone Penny Ray PA-C Primary Care Provider + Source Comments [facility],non-owned Affiliates and Associated Physician Practices is amultiple site organization consisting of ambulatory clinics and hospital sitesin [place], [place], [place] and [place]. This disclosure is being madepursuant to the Care Everywhere program and may not contain all information available regarding this patient. Last updated 17.[facility] [employer] Allergies Active Allergy Reactions Criticality Noted Date Comments Azithromycin Urticaria Medium 03/09/2023 Penicillins Other Medications * Be aware that medications may not be up to date on this document. Alwaysverify current medications with the patient. cetirizine (ZYRTEC ALLERGY) 10 MG tablet Take 1 (one) tablet by mouth once daily Active nortriptyline (PAMELOR) 10 MG capsule Take 1 (one) capsule by mouth at bedtime Active ibuprofen (ADVIL) 200 MG capsule Take 1 (one) capsule by mouth 4 times daily Active atorvastatin (LIPITOR) 40 MG tablet Take 1 (one) tablet by mouth at bedtime Active hydroCHLOROthia zide (Hydrodiuril) 25 MG tablet Take 1 (one) tablet by mouth once daily Active losartan (Cozaar) 50 MG tablet Take 1 (one) tablet by mouth once daily Active metoprolol succinate XL 24hr (Toprol XL) 100 MG tablet Take 1 (one) tablet by mouth at bedtime Active triamcinolone acetonide (Kenalog) 0.1 % cream Apply 1 Application to affected area once daily Active albuterol HFA (Proventil; Ventolin; Proair) 108 (90 Base) MCG/ACT inhaler Inhale 2 (two) puffs by mouth every 4 hours as needed Active traMADol (Ultram) 50 MG tablet Take 1 (one) tablet by mouth every 6 hours as needed Active HYDROcodone-cuba taminophen ([place]) 5-325 MG tablet Take 1 (one) tablet to 2 (two) tablets by mouth 2 times daily as needed Active cyclobenzaprine (Flexeril) 10 MG tablet Take 1 (one) tablet by mouth 3 times daily as needed Active Active Problems Problem Noted Date Diagnosed Date 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 Never 03/15/2023 Q2: How many drinks containi ng alcohol do you have on a typical day when you are drinking? Patient does not drink Q3: How often do you have si x or more drinks on one occasion? Never 03/15/2023 Comments No Sex and Gender Information Value Date Recorded Sex Assigned at Not on file Legal Sex Female 9:19 AM CDT Gender Identity Not on file Sexual Orientation Not on file Last Filed Vital Signs Vital Sign Reading Time Taken Comments Blood Pressure 116/60 03/15/2023 12:45 PM RECONSTRUCTIVE SURGEON Pulse 64 03/15/2023 12:45 PM RECONSTRUCTIVE SURGEON Temperature 35.9 C (96.6 F) 03/15/2023 11:46 AM RECONSTRUCTIVE SURGEON Respiratory Rate 18 03/15/2023 12:45 PM RECONSTRUCTIVE SURGEON Oxygen Saturation 98% 03/15/2023 12:45 PM RECONSTRUCTIVE SURGEON Inhaled Oxygen Concentration - - Weight 88.1 kg (194 lb 3.2 oz) 03/15/2023 8:15 A M RECONSTRUCTIVE SURGEON Height 162.6 cm (5' 4 ) 03/15/2023 8:15 AM RECONSTRUCTIVE SURGEON Body Mass Index 33.33 03/15/2023 8:15 AM RECONSTRUCTIVE SURGEON Plan of Treatment Health Maintenance Due Date Last Done Comments COLOGUARD (AGES 45-75) - COL ON CA SCREENING 1961 COLON MONITORING 1961 COLONOSCOPY - COLON CA SCREENING 1961 CT COLONOGRAPHY - COLON CA SCREENING 1961 Colorectal Cancer Screening 1961 FIT - COLON CA SCREENING 1961 FLEX SIG - COLON CA SCREENING 1961 MAMMOGRAM 1961 MEDICARE AWV 12 MONTHS 1961 PAP SMEAR 1961 HIV SCREENING 1976 HEPATITIS C SCREENING 04/15/1979 DTAP/TDAP/TD VACCINES (1 - Tdap) 1980 PNEUMOCOCCAL VACCINE 50+ (1 of 2 - PCV) 1980 ZOSTER VACCINE (1 of 2) 2011 SCREENING FOR DIABETES 12/25/2017 Respiratory Syncytial Virus (RSV) Vaccine Pt: or over 60 yrs (1 - Risk 60-74 years 1-dose series) 2021 COVID-19 VACCINE (3 - 2023-2 5 season) 2023 06/17/2020, 05/23/2020 DEPRESSION SCREENING 02/27/2024 INFLUENZA VACCINE (Season Ended) 2024 HEPATITIS B VACCINE Aged Out No longe r eligible based on patient's age to complete this topic HIB VACCINE Aged Out No longer eligi ble based on patient's age to complete this topic HPV VACCINE Aged Out No longer eligi ble based on patient's age to complete this topic MENINGOCOCCAL (Group B) VACCINE SHARED DECISION-MAKING Aged Out No longer eligible based on patient's age to complete this topic MENINGOCOCCAL GROUPS A/C/Y/W VACCINE Aged Out No longer eligible b ased on patient's age to complete this topic Insurance MEDICARE [facility] MEDICARE [facility] Care Teams Business Performance Analyst Relationship Specialty Start Date End Date Penny Ray PA-C [address] [place] [address] PCP - General Physician Miniature Train Driver 03/15/23
--- OUTSIDE RECORDS SUMMARY | 2024-07-06 14:44 | XMS_ITS | CONTINUITY OF CARE DOCUMENT ---
Author Name gaby, gaby Address Unknown Organization [facility] Address [address] [facility] [address] [place] [address] Phone [phone] Care Team Providers Care Ship Joiner Name Role Phone Oren BARAHONA, Ciera Unavailable FREDY BREWER Unavailable FREDY BREWER Unavailable PROBLEMS Condition Status Date Provider Notes Hypertension active Ciera Lott MD Hyperlipidemia active Ciera Lott MD Chest pain- Nl echo , stress test , Ca score 06/2019 active Ciera Lott MD Palpitations active Ciera Lott MD Hiatal hernia active Ciera Lott MD Tobacco abuse--quit active Ciera Lott MD ARTHRITIS active Ciera Lott MD Venous insufficiency active Ciera Lott MD Headache active oRnit East MD Family history of CAD active Ronit christianson MD CAD Calcium Score - 06/2019 active Ciera howell MD Prediabetes active Ciera Lott MD RUTHIE active Haleypippa Villamidawna [employer] ENCOUNTERS Date Type Provider Location Encounter Diag nosis 3 - 3 In-person encounter Office Visit [place] [facility] RUTHIE 1 - 1 In-person encounter Office Visit Ciera Lott MD [place] [facility] 1 - 1 In-person encounter Office Visit Ciera Lott MD [place] [facility] Chest pain- Nl echo , stress test , Ca score , 06/2019Tobacco abuse--quitPrediabetes 2 - 2 In-person encounter Office Visit Ciera Lott MD [place] [facility] 2 - 2 In-person encounter Office Visit Ciera Lott MD [place] [facility] Chest pain- Nl echo , stress test , Ca score 1, 06/2019 0 - 0 In-person encounter Office Visit Ronit East MD [facility] Office HeadacheFamily history of CADCAD Calcium Score 1- 06/2019 6 - 6 In-person encounter Office Visit Ciera K[facility] 4 - 4 In-person encounter Office Visit Ciera Lott MD [place] [facility] Venous insufficiency 7 - 7 In-person encounter Office Visit Ciera Lott MD [place] [facility] ARTHRITIS 2 - 8 In-person encounter Office Visit Ciera Lott MD [place] [facility] Tobacco abuse--quit 9 - 0 In-person encounter Office Visit Ciera Lott MD [place] [facility] HypertensionHyperlipidemiaChest pain- Nl echo , stress test , Ca score 06/2019PalpitationsHiatal hernia VITAL SIGNS Date Observation Value Provider Body Mass Index (Ratio) 33.64 kg/m2 Omar Lott MD blood pressure, diastolic 73 mm[Hg] Ke rri Derick blood pressure, systolic 119 mm[Hg] Jarad Sepulveda blood pressure, cuff size large Ke leanne Sepulveda oxygen saturation, oximetry 97 % Moraima Sepulveda respiratory rate E&M 16 /min Moraima mercado pulse rate 64 /min Moraima Perez er weight E&M 196 [lb_av] Moraima Perez lder height E&M 64 [in_i] Moraima Perez [facility] Body Mass Index (Ratio) 32.78 kg/m2 Omar Lott MD blood pressure, cuff size large Fl florencia Caldwell blood pressure, diastolic 84 mm[Hg] Fl florencia Caldwell blood pressure, systolic 136 mm[Hg] [facility] nayely Caldwell oxygen saturation, oximetry 96 % [facility] respiratory rate E&M 16 /min [facility] pulse rate 66 /min [facility]o [facility] weight E&M 191 [lb_av] Margo [facility] height E&M 64 [in_i] Margo Hollnadia chamberlain Body Mass Index (Ratio) 31.92 kg/m2 Omar Lott MD blood pressure, resting Yes [facility] jason Ford blood pressure, diastolic 65 mm[Hg] [facility] Ford blood pressure, systolic 120 mm[Hg] [facility] Ford pulse rate 59 /min [facility] Morales mccall oxygen saturation, oximetry 98 % [facility] Ford respiratory rate E&M 18 /min [facility] maida Moralesford weight E&M 186 [lb_av] [facility] Morales mccall height E&M 64 [in_i] [facility] Andrew mccall Body Mass Index (Ratio) 32.78 kg/m2 Omar Lott MD blood pressure, diastolic 70 mm[Hg] Cy ntcarolyn Espinosa blood pressure, systolic 138 mm[Hg] Kristen joanne Espinosa blood pressure, cuff size regular Cy ntcarolyn Espinosa pulse rate 60 /min Magui webber respiratory rate E&M 16 /min Magui Espinosa oxygen saturation, oximetry 98 % Magui Espinosa weight E&M 191 [lb_av] Magui Tatum l height E&M 64 [in_i] Magui Tatum l blood pressure, diastolic 67 mm[Hg] Anselmo Aguirre blood pressure, systolic 111 mm[Hg] Jon Bonillarosejong Body Mass Index (Ratio) 34.15 kg/m2 Omar Lott MD oxygen saturation, oximetry 97 % Chastity Angela blood pressure, diastolic 90 mm[Hg] Ch astity Angela blood pressure, systolic 152 mm[Hg] Jessica stity Angela pulse rate 82 /min Chastity Angela respiratory rate E&M 16 /min Chastit y Angela weight E&M 199 [lb_av] Chastity Angela height E&M 64 [in_i] Chastity Angela Body Mass Index (Ratio) 32.95 kg/m2 Omar Lott MD blood pressure, diastolic 78 mm[Hg] Vincent lee O'Devante blood pressure, systolic 110 mm[Hg] Lorraine mancilla O'Devante oxygen saturation, oximetry 98 % Claudette O'Devante respiratory rate E&M 16 /min Claudette O'Devante pulse rate 65 /min Claudette O'Devante weight E&M 192 [lb_av] Claudette O'Devante height E&M 64 [in_i] Claudette O'Devante Body Mass Index (Ratio) 33.30 kg/m2 Omar Lott MD blood pressure, cuff size regular Laz Sepulveda blood pressure, diastolic 70 mm[Hg] Laz Foxer blood pressure, systolic 110 mm[Hg] Jarad Sepulveda oxygen saturation, oximetry 97 % Moraima Sepulveda respiratory rate E&M 18 /min Moraima rutherfordnfelder pulse rate 59 /min Moraima Perez lder weight E&M 194 [lb_av] Moraima Perez er height E&M 64 [in_i] Moraima Perez er Body Mass Index (Ratio) 31.41 kg/m2 Omar Lott MD blood pressure, resting Yes [facility] blood pressure, diastolic 80 mm[Hg] [facility] blood pressure, systolic 120 mm[Hg] Mercedes kathleen Belvidere oxygen saturation, oximetry 98 % [facility] respiratory rate E&M 16 /min [facility] 88 /min [facility] weight E&M 183 [lb_av] [facility] height E&M 64 [in_i] [facility] ALLERGIES Allergy Name Onset Date Reaction Criticality Status PENICILLIN hives hives Low Criticality active HISTORY OF MEDICATION USE Medication Status Instructions Dates Provider Indications Com ments losartan 50 mg tablet active Take 1 tab let by mouth once a day TAKE 1 TABLET BY MOUTH ONCE DAILY 04/10 Haley Ventimiglia [employer] hydrochlorothiazide 25 mg tablet active TAKE 1 TABLET BY MOUTH EVERY DAY 04/10 Haley Ventimiglia [employer] nortriptyline 25 mg capsule active Take 1 capsule by mouth every morning Take 1 capsule by mouth once daily in the morning 08/22 Margo Jacobo tramadol 50 mg tablet active TAKE 1 TAB LET BY MOUTH EVERY 8 TO 12 HOURS NEEDED Filiberto Gentile hydrocodone-acetamino phen 5-325 mg tablet active 1 tablet by mouth every six hours as needed 07/28 Jefferson Ford hydrocodone-acetamino phen 5-325 mg tablet completed Take 1 tablet by mouth every twelve hours as needed 03/30 - 04/18 Magui Espinosa CYCLOBENZAPRINE HCL 10 MG ORAL TABLET completed take 1 tab daily 03/30 - 07/28 Jefferson Ford losartan 50 mg tablet completed TAKE 1 TAB LET BY MOUTH ONCE DAILY 03/30 - 04/10 Haley Ventimiglia [facility] nortriptyline 25 mg capsule completed capsule by mouth every morning 06/11 - 08/22 Margo Jacobo gabapentin 300 mg capsule completed 1 tablet by mouth once a day 06/11 - 04/18 Ciera Lott MD hydrochlorothiazide 25 mg tablet completed Take 1 tablet by mouth once a day 11/21 - 04/10 Haleypippa Villamiglia [employer] LISINOPRIL 40 MG ORAL TABLET completed ONE TAB. DAILY 05/04 - 03/30 Magui Espinosa VALSARTAN 80 MG ORAL TABLET completed one tab daily 04/29 - 05/04 Ciera Lott MD NORTRIPTYLINE HCL CAPSULE completed one cap once daily 10/02 - 06/11 Ciera Ltot MD CHANTIX STARTING MONTH SHANTEL 0.5 MG X 11 & 1 MG X 42 ORAL TABLET completed One Pack. Take as directed. 04/09 - 10/02 Claudette BELLE CONTINUING MONTH SHANTEL 1 MG ORAL TABLET completed One pack. Take as directed 04/09 - 10/02 Claudette Bermudez AMLODIPINE BESYLATE 5 MG ORAL TABLET completed Take 1 tablet orally once daily 06/04 - 04/29 Marlyn Miller metoprolol succinate 100 mg tablet extended release 24 hr active Take 1 tablet by mouth once a day 04/13 Haleypippa Villamiglia [place] DICYCLOMINE HCL 10 MG ORAL CAPSULE completed 1 caps 4x daily prn 06/04 - 10/02 Claudette Bermudez atorvastatin 40 mg tablet active Take 1 tablet by mouth once a day 04/24 Margo Jacobo #90, 90 days supply, Prescribed by TANMAY FARNSWORTH, Filled 02/21/2017 cetirizine 10 mg tablet active Take 1 tablet by mouth once a day 04/30 Margo Jacobo #30, 30 days supply, Prescribed by TANMAY FARNSWORTH, Filled 05/27/2017 SOCIAL HISTORY Date Observation Value Provider social history E&M Patient nakul cowart smokes every day. Smoking History: Mike phelps is a former smoker. Ciera Lott MD drug use no Ahley Ventimig charleen [employer] alcohol use no Haley Ventimig charleen [employer] smoking, year quit 2017 Moraima Chavez joaner smoking history, tot al pack/day 1/2 ppd Moraima Shelbyherberter cigarette use yes Moraima Shelbynf elder smoking status Former smoker Moraima Shelby nfelder social history reviewed E&M revi ewed - no changes required Filiberto Gentile social history reviewed E&M revi ewed - no changes required Ciera Lott MD social history E&M Patient nakul cowart smokes every day. Smoking History: Mike phelps is a former smoker. Filiberto Gentile smoking, year quit 2017 Margo Jacobo smoking history, tot al pack/day 1/2 ppd Margo Jacobo cigarette use yes Margo Packer satish smoking status Former smoker Margo rich social history reviewed E&M revi ewed - no changes required Filiberto Gentile social history reviewed E&M revi ewed - no changes required Kina Lechuga social history E&M Patient nakul cowart smokes every day. Smoking History: Mike phelps is a former smoker. Kina Lechuga smoking, year quit 2017 Genia Ford smoking history, tot al pack/day 1/2 ppd Jefferson Ford cigarette use yes Jefferson fine smoking status Former smoker Jefferson rivers social history E&M Patient nakul ntly smokes every day. Smoking History: Mike phelps is a former smoker. Ciera Lott MD social history reviewed E&M revi ewed - no changes required Ciera Lott MD smoking, year quit 2018 Magui Serrato khloe smoking history, tot al pack/day 1/2 ppd Magui Espinosa cigarette use yes Magui Hernandezluis head smoking status Former smoker Magui Hernandez kirk number of grandchildren Ronit Aguirre social history E&M Patient nakul ntly smokes every day. Smoking History: Mike phelps is a former smoker. Karthik Aguirre social history reviewed E&M revi ewed - no changes required Karthik Aguirre smoking, year quit 2018 Karthik faye smoking history, tot al pack/day 1/2 ppd Karthik Aguirre cigarette use yes Karthik Aguirre smoking status Former smoker Karthik sunshine social history reviewed E&M revi ewed - no changes required Ciera Lott MD social history E&M Patient nakul ntly smokes every day. Smoking History: Mike pehlps is a former smoker. Ciera Lott MD social history reviewed E&M revi ewed - no changes required Ciera Lott MD smoking, year quit 2018 Chastity Angela smoking history, tot al pack/day 1/2 ppd Chastity Angela cigarette use yes Chastity Angela smoking status Former smoker Chastity Hog ue social history E&M Patient currnolan ntly smokes every day. Smoking History: Mike phelps is a former smoker. Ciera Lott MD social history reviewed E&M revi ewed - no changes required Ciera Lott MD smoking, year quit 2018 Claudette Vidal Devante smoking history, tot al pack/day 1/2 ppd Claudette O'Devante cigarette use yes Claudette Drew'Devante smoking status Former smoker Ciera Lott MD social history E&M Patient nakul cowart smokes every day. Smoking History: Mike phelps currently smokes every day. Ciera Lott MD social history reviewed E&M revi ewed - no changes required Ciera Lott MD smoking history, tot al pack/day 1/2 ppd Moraima Suttonwhitneygopibernardaer smoking, year quit 2017 Moraima Chavez enenfelder cigarette use yes Moraima Barnesarianne elder smoking status current every da y smoker Ciera Lott MD number of grandchildren Ciera Lott MD T krys Lott MD social history reviewed E&M revi ewed - no changes required Ciera Lott MD social history E&M S moking History: Mike phelps is a former smoker. Ciera Lott MD smoking, year quit 2017 Heather kilpatrick cigarette use yes Heather Newberry smoking status Former smoker Heather Pierce am FUNCTIONAL STATUS Date Observation Value Provider HRA, CV Assess/Plan, Angina (inactive) Management Plan continue current therapy Filiberto Gentile HRA, CV Assess/Plan, Angina (inactive) Management Plan continue current therapy Filiberto Gentile HRA, CV Assess/Plan, Angina (inactive) Management Plan continue current therapy Kina Lechuga FAMILY HISTORY Family Member Condition Father Family History of Di abetes: Father Family History of Hy pertension: Father Family History of Hy perlipidemia: Full Sister Family History of Di abetes: Full Brother Family History of Di abetes: Father Family History of Di abetes: INSURANCE PROVIDERS Payer name Policy type / Coverage type Massimo red republican ID [facility] Commercial insurance co aravind [id number] MEDICARE [place] [id number] ADVANCE DIRECTIVES Name Date DISCUSSED - NO DECISION MADE TREATMENT PLAN Date Name Performer [id number],C,W ill plan home sleep study, d/t HTN, bradycardia, fatigue and frequent night time waking. O rders: 9 9214 MOD 30-39min (CPT-07014) [facility] Study Home (CPT-17924) [facility] [id number],C, H er updated medication list for this problem includes: Metoprolol Succinate 100 Mg Tablet Extended Release 24 Hr (Metoprolol succinate) ..... Take 1 tablet by mouth once a day [facility] [id number],C,c ontinues with compression stockings. [facility] [id number],C,P lease continue with statin therapy. Primary following lipids H er updated medication list for this problem includes: Atorvastatin 40 Mg Tablet (Atorvastatin) ..... Take 1 tablet by mouth once a day [facility] [id number],C,P atient blood pressure better controlled. Will continue present medication regimen. T he following medications were removed from the medication list: Losartan 50 Mg Tablet (Losartan) ..... Take 1 tablet by mouth once daily Hydrochlorothiazide 25 Mg Tablet (Hydrochlorothiazide) ..... Take 1 tablet by mouth once a day Her updated medication list for this problem includes: Losartan 50 Mg Tablet (Losartan) ..... Take 1 tablet by mouth once a day take 1 tablet by mouth once daily Metoprolol Succinate 100 Mg Tablet Extended Release 24 Hr (Metoprolol succinate) ..... Take 1 tablet by mouth once a day Hydrochlorothiazide 25 Mg Tablet (Hydrochlorothiazide) ..... Take 1 tablet by mouth every day [facility] [id number],Filiberto Bullock i [id number],S, Filiberto Rodriguez i [id number],S, Filibertoevelyn Rodriguez i [id number],S, Filibertoevelyn Rodriguez i [id number],B, Filibertoevelyn Rodriguez i [id number],B, Filiberto rosangela Cardiology:Will plan home sleep study, d/t HTN, bradycardia, fatigue and frequent night time waking. O rders: 9 9214 MOD 30-39min (CPT-81619) S [facility] Study Home (CPT-71709) [facility] Cardiology: H er updated medication list for this problem includes: Metoprolol Succinate 100 Mg Tablet Extended Release 24 Hr (Metoprolol succinate) ..... Take 1 tablet by mouth once a day [facility] Cardiology:continues with compre ssion stockings. [facility] Cardiology:Please co ntinue with statin therapy. Primary following lipids H er updated medication list for this problem includes: Atorvastatin 40 Mg Tablet (Atorvastatin) ..... Take 1 tablet by mouth once a day [facility] Cardiology:Patient b lood pressure better controlled. Will continue present medication regimen. T he following medications were removed from the medication list: Losartan 50 Mg Tablet (Losartan) ..... Take 1 tablet by mouth once daily Hydrochlorothiazide 25 Mg Tablet (Hydrochlorothiazide) ..... Take 1 tablet by mouth once a day Her updated medication list for this problem includes: Losartan 50 Mg Tablet (Losartan) ..... Take 1 tablet by mouth once a day take 1 tablet by mouth once daily Metoprolol Succinate 100 Mg Tablet Extended Release 24 Hr (Metoprolol succinate) ..... Take 1 tablet by mouth once a day Hydrochlorothiazide 25 Mg Tablet (Hydrochlorothiazide) ..... Take 1 tablet by mouth every day [facility] Cardiology [facility] Ahmedzai Cardiology Filiberto Ahmedzai Cardiology Filiberto Ahmedzai Cardiology Filiberto Ahmedzai Cardiology Filiberto Ahmedzai Cardiology Filiberto Ahmedzai Cardiology Ciera Lott MD Cardiology Ciera Lott MD Cardiology Ciera Lott MD Cardiology Ciera Lott MD Cardiology Ciera Lott MD Cardiology follow up Ciera augustine MD Cardiology follow up Ciera augustine MD Cardiology follow up Ciera augustine MD Cardiology follow up Ciera augustine MD Cardiology follow up Ciera augustine MD TeleHealth:She is un able to take ASA. Describes that she get menstrual bleeding and has had workup for this already. Karthik Aguirre TeleHealth:She needs screening. Had stress test done in 2016. With family hx, will need exercise nuclear treadmill since prior test was without nuclear. Will also order coronary calcium score. Karthik Aguirre TeleHealth:Has quit Karthik sunshine TeleHealth:Is tolera ting medications well. BP today: 111/67 P rior BP: 152/90 (04/30/2019) Her updated medication list for this problem includes: Hydrochlorothiazide 25 Mg Oral Tablet (Hydrochlorothiazide) ..... One tab daily Lisinopril 40 Mg Oral Tablet (Lisinopril) ..... One tab. daily Metoprolol Succinate Er 100 Mg Oral Tablet Extended Release 24 Hour (Metoprolol succinate) ..... Take one tab by mouth at night Karthik Aguirre TeleHealth:She has r ecurrent chest pain. Has family hx of heart disease. She needs to have a nuclear treadmill stress test done as the initial test. Karthik Aguirre TeleHealth:Father nargis chamberlain a hx of brain aneurysm. Pt says that she had a CT scan of the head done at [facility], which she reports was negative for an aneurysm. She has recurrent headaches. Takes advil. Have improved since BP has been controlled. Karthik Aguirre TeleHealth Pls schedule 2 wk tel ehealth visit Ciera Lott MD TeleHealth Pls schedule 2 wk tel ehealth visit Ciera Lott MD TeleHealth [facility]s schedule 2 wk tel ehealth visit Ciera Lott MD TeleHealth Pls schedule 2 wk tel ehealth visit Ciera Lott MD Cardiology Ciera Lott MD Cardiology Ciera Lott MD Cardiology Ciera Lott MD Cardiology Ciera Lott MD Cardiology Ciera Lott MD Cardiology Ciera Lott MD Cardiology Ciera Lott MD Cardiology Ciera Lott MD Cardiology Ciera Lott MD Cardiology Ciera Lott MD Cardiology Follow up Ciera augustine MD Cardiology Follow up Ciera augustine MD Cardiology Follow up Ciera augustine MD Cardiology Follow up Ciera augustine MD Cardiology:Will chec k echo and stress nuc. Will also request stress test results from Dr. Arias in [place], [place]. Ciera Lott MD Cardiology:Will chec k 15 day tele monitor. Ciera Lott MD Cardiology: B P today: 120/80 BP meds will be changed. Ciera Lott MD Cardiology: H er updated medication list for this problem includes: Atorvastatin Calcium 40 Mg Oral Tablet (Atorvastatin calcium) ..... Tk 1 t po qd Ciera Lott MD Date Name Sleep Study Home CT, Coronary Calcium Score Stress Exercise Card iolite Complete Echo Venous Doppler Bilat eral LE STR - Nuclear Complete Echo Mobile Cardiac Tele HISTORY OF PROCEDURES Procedure Date Procedure Name Provider Procedure Notes S tatus EKG Ciera Lott MD completed EKG Ciera Lott MD completed Cardiolite, 2 units Ronit East MD completed SPECT Images Ronit East MD com pleted Stress EKG Ronit East MD compl eted CT- Coronary CA score Ciera Lott MD completed EKG Ciera Lott MD completed Event Monitor Ciera Lott MD comple alli
--- OUTSIDE RECORDS SUMMARY | 2024-07-06 14:44 | XMS_ITS | Referral Summary ---
Author Organization [facility] Physician Office Building [address] [place] [id number] Care Team Providers Care Psychiatric Registered Nurse Name Role Phone Hayley Quinones Primary Care Provi caitlyn Allergies Active Allergy Reactions Criticality Noted Date Comments Penicillins Other (See comments) Low 04/07/2019 Medications atorvastatin (LIPITOR) 40 mg tablet Take 40 mg by mouth daily 0 Active ibuprofen (ibuprofen) 200 mg tab/cap Take 200 mg by mouth 4 (four) times a day Active metoprolol XL (TOPROL-XL) 50 mg 24 hr tablet metoprolol succinate ER 50 mg tablet,extended release 24 hr TAKE 1 TABLET BY MOUTH ONCE DAILY AT NIGHT Active neomycin-polymy hanny-HC (CORTISPORIN) otic solution neomycin-polymy hanny-hydrocort 3.5 mg/mL-10,000 unit/mL-1 % ear solution INSTILL 4 DROPS INTO AFFECTED EAR(S) BY OTIC ROUTE 3 TIMES PER DAY Active nortriptyline (PAMELOR) 10 mg capsule Take 10 mg by mouth nightly Active clobetasoL (TEMOVATE) 0.05 % cream clobetasol 0.05 % topical cream MAGDA THIN LAYER EXT AA BID FOR 2 WKS Active cetirizine (ZyrTEC) 10 mg tablet cetirizine 10 mg tablet TK 1 T PO QD Active Active Problems Problem Noted Date Diagnosed Date Brachial neuritis 04/07/2019 Carpal tunnel syndrome 04/07/2019 Assessment & Plan (04/07/2019 4:35 PM PROJECT CONTROL ANALYST): Symptomatic lead patient has bilateral carpal tunnel syndrome. She should discontinue smoking would like to review her EMG nerve conduction study. It is certainly possible that she had an incomplete decompression of her median nerve when she underwent her endoscopic release which is not uncommon. She should continue with the night splints. Will initiate appropriate treatment when all the dated can be accumulated from her out of town physicians Lesion of radial nerve 04/07/2019 Pain in elbow 04/07/2019 Cervical spondylosis with myelopathy 04/07/2019 Assessment & Plan (04/07/2019 4:35 PM PROJECT CONTROL ANALYST): Patient does have myelopathic reflexes with disc space narrowing and known cervical stenosis. She should definitely discontinue smoking and would recommend evaluation by our web application dev specialist Trigger thumb of right hand 04/07/2019 Assessment & Plan (04/07/2019 4:44 PM PROJECT CONTROL ANALYST): Consideration for decompression of the trigger thumb could be performed at the time of carpal tunnel release in the event that revision carpal tunnel surgeries require on the right side Encounter for screening for malignant neoplasm o f colon 04/05/2018 Otitis externa 04/05/2018 Elevated liver enzymes 12/25/2017 Chronic pancreatitis 12/07/2017 COPD (chronic obstructive pulmonary disease) 01/2018 Essential hypertension 12/07/2017 Interstitial cystitis 12/07/2017 Other hyperlipidemia 12/07/2017 Psoriasis 12/07/2017 Social History Tobacco Use Types Packs/Day Years Used Date Smoking Tobacco: Every Day Personal Safety Answer Date Recorded Getting School Help Needed Not on file 02/28 Comments Unknown Sex and Gender Information Value Date Recorded Sex Assigned at Not on file Legal Sex Female 1:52 PM PROJECT CONTROL ANALYST Gender Identity Not on file Sexual Orientation Not on file Last Filed Vital Signs Vital Sign Reading Time Taken Comments Blood Pressure - - Pulse - - Temperature - - Respiratory Rate - - Oxygen Saturation - - Inhaled Oxygen Concentration - - Weight 87.3 kg (192 lb 6.4 oz) 04/07/2019 2:16 P M PROJECT CONTROL ANALYST Height 162.6 cm (5' 4 ) 04/07/2019 2:16 PM PROJECT CONTROL ANALYST Body Mass Index 33.03 04/07/2019 2:16 PM PROJECT CONTROL ANALYST Plan of Treatment Not on file Insurance MEDICARE MEDICARE [facility] H[facility]PPO Address: [address] [phone] Care Teams Psychiatric Registered Nurse Relationship Specialty Start Date End Date Hayley Quinones PA [address] [place], [place] [phone] PCP - General Physician Collect On Delivery Clerk 06/02/20
--- OUTSIDE RECORDS SUMMARY | 2024-07-06 14:44 | XMS_ITS | Clinical Summary ---
Author Organization 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 She should definitely discontinue smoking and would recommend evaluation by our multimedia educational specialist Trigger thumb of right hand 04/07/2019 Assessment & Plan (04/07/2019 4:44 PM MOTOR COACH OPERATOR): Consideration for decompression of the trigger thumb [...] cystitis 12/07/2017 Other hyperlipidemia 12/07/2017 Psoriasis 12/07/2017 Medical History Medical History Date Comments Hypertension Hypercholesteremia Social History Tobacco Use Types Packs/Day Years Used Date Smoking Tobacco: Every Day Personal Safety Answer Date Recorded Getting School Help Needed Not on file 02/28 Comments Unknown Sex and Gender Information Value Date Recorded Sex Assigned at Not on file Legal Sex Female 1:52 PM MOTOR COACH OPERATOR Gender Identity Not on file Sexual Orientation Not on file Obstetrics History Last Filed Vital Signs Vital Sign Reading Time Taken Comments Blood Pressure - - Pulse - - Temperature - - Respiratory Rate - - Oxygen Saturation - - Inhaled Oxygen Concentration - - Weight 87.3 kg (192 lb 6.4 oz) 04/07/2019 2:16 P M MOTOR COACH OPERATOR Height 162.6 cm (5' 4 ) 04/07/2019 2:16 PM MOTOR COACH OPERATOR Body Mass Index 33.03 04/07/2019 2:16 PM MOTOR COACH OPERATOR Plan of Treatment Health Maintenance Due Date Last Done Comments Breast Cancer Screening-Mammogram 1961 Cervical Cancer Screening 1961 Colon Cancer Screening-Colonoscopy 1961 Depression Screening 1961 Hepatitis C Screening 1961 Hepatitis B Screening 1979 Regular Well Visit/Exam 18-64 1979 Pneumococcal vaccine <65 (1 of 2 - PCV) 1980 Zoster Vaccine (1 of 2) 2011 Covid-19 Vaccine ( - season) 2023 02/14/2021, 06/17/2020, 05/23/2020 Influenza Vaccine (#1) 2023 DTaP/Tdap/Td Vaccine (2 - Td or Tdap) 01/22/2027 Insurance [facility] PPO MEDICARE MEDICARE [facility] Care Teams Pay Agent Relationship Specialty Start Date End Date Hayley Quniones PA [facility] [place] [address] PCP - General Physician Portfolio Accountant 06/02/20
--- OUTSIDE RECORDS SUMMARY | 2024-07-06 14:44 | XMS_ITS | Data Portability ---
Author Organization [facility] Address [address] [place] [address] Care Team Providers Care Oncology Specialist Name Role Phone FREDY DANGELO Primary Care Provider DAVI DIANE Certified Court/Medical Interpreter [phone] RICCARDO JACKSON Engineering Technical Analyst [phone] Assessment Encounter Date Assessment Date Assessment LastModified by Organization Details LastModified Time 12/31/2023 12/31/2023 VIKTOR Dickson [email or web address] Not available 12/31/2023 14:17:01 01/21/2024 01/21/2024 Artem HOANG [email or web address] Not available 01/21/2024 11:07:46 Plan of Treatment Reminders Order Date Submit Date Provider Last Modified By Organization Details Last Modified Time Details Appointments ANY 15 2024 01:45P Claire QUIÑONES PA-C Not available Not available Not available Lab HbA1c (hemoglob in A1c), blood 2024 025 [facility] In-Office Order, Internal Use Only DO Not Attach Compendium DO Not Attach Compendium, Do Not Delete/merge, [id number] 05/15/2024 12:08:46 albumin/c reatinine , mass ratio, urine 2024 025 [email or web address] [facility], [address] [facility], [place], [address], 06/24/2024 12:31:08 CMP, serum or plasma 2024 025 [facility], [address] [facility], [place], [address], 05/30/2024 03:47:58 CBC w/ auto diff 2024 025 [facility], [address], [place], [address], 05/30/2024 03:47:59 TSH + free T4, serum 2024 025 [facility], [address], [place], [address], 05/30/2024 03:47:57 lipid panel, serum 2024 025 [facility], [address], [place], [address], 05/30/2024 03:47:55 HbA1c (hemoglob in A1c), blood 2023 024 [email or web address] In-Office Order, Internal Use Only DO Not Attach Compendium DO Not Attach Compendium, Do Not Delete/merge, [id number] 01/21/2024 11:20:54 HbA1c (hemoglob in A1c), blood 2023 024 [facility], [address] [facility], [facility], [place], [address], 09/24/2023 17:08:52 TSH + free T4, serum 2023 024 [facility], [address] [facility], [facility], [place], [address], 09/24/2023 17:08:51 PT/INR 2023 024 [facility], [address] [facility], [facility], [place], [address], 09/24/2023 17:08:51 CBC w/ auto diff 2023 024 [facility], [address] [facility], [facility], [place], [address], 09/24/2023 17:08:53 PT/PTT, plasma 2023 024 [facility], [address] [place] [address], [address], 09/24/2023 17:08:54 Referral diabetic ophthalmo logy referral 2023 024 [email or web address], [address], [place], [address], 06/19/2024 11:26:36 Procedures None recorded. Surgeries None recorded. Imaging None recorded. Medication Orders chlorhexi dine gluconate 0.12 % mouthwash 2024 025 [facility], [address] [place] [address], [address], 05/12/2024 16:06:05 nortripty line 25 mg capsule 2024 025 [facility], [address] [place] [address], [address], 05/12/2024 16:06:04 metformin ER 500 mg tablet,ex tended release 24 hr 2024 025 [facility], [address] [place] [address], [address], 05/12/2024 16:06:01 Ozempic 0.25 mg or 0.5 mg (2 mg/1.5 mL) subcutane ous pen injector 2024 025 [facility], [address] [place] [address], [address], 05/12/2024 16:06:07 metoprolo l succinate ER 100 mg tablet,ex tended release 24 hr 2024 025 [facility], [address] [place] [address], [address], 05/12/2024 16:06:04 losartan 50 mg tablet 2024 025 [facility], [address] [place] [address], [address], 05/12/2024 16:06:04 hydrochlo rothiazid e 25 mg tablet 2024 025 [facility], [address] [place] [address], [address], 05/12/2024 16:06:06 atorvasta tin 40 mg tablet 2024 025 [facility], [address] [place] [address], [address], 05/12/2024 16:06:09 metformin ER 500 mg tablet,ex tended release 24 hr 2023 024 [facility], [address] [place] [address], [address], 01/21/2024 11:21:01 metoprolo l succinate ER 100 mg tablet,ex tended release 24 hr 2023 024 [facility], [address] [place] [address], [address], 01/21/2024 11:21:01 losartan 50 mg tablet 2023 024 [facility], [address] [place] [address], [address], 01/21/2024 11:21:02 atorvasta tin 40 mg tablet 2023 024 [facility], [address] [place] [address], [address], 01/21/2024 11:21:00 metformin ER 500 mg tablet,ex tended release 24 hr 2023 024 [facility], [address] [place], [address], 10/01/2023 19:01:21 cetirizin e 10 mg tablet 2023 024 [facility], [address] [place], [address], 09/19/2023 17:03:09 Patient TargetsNo targets recorded. Patient Instructions Encounter Date Encounter Id Patient Instructions Last Modified By Organization Details Last Modified Time 09/19/2023 [id number] A healthy lifestyle: care instructions [email or web address] Not available 09/19/2023 17:02:51 dry skin: care instructions [email or web address] Not available 09/19/2023 17:02:51 10/01/2023 [id number] A healthy lifestyle: care instructions [email or web address] Not available 10/01/2023 16:57:47 learning about type 2 diabetes [email or web address] Not available 10/01/2023 16:57:47 type 2 diabetes: care instructions [email or web address] Not available 10/01/2023 16:57:47 12/31/2023 [id number] A healthy lifestyle: care instructions [email or web address] Not available 12/31/2023 11:55:59 01/21/2024 [id number] A healthy lifestyle: care instructions [email or web address] Not available 01/21/2024 11:20:54 learning about type 2 diabetes Not available 01/21/2024 11:20:54 type 2 diabetes: care instructions [email or web address] Not available 01/21/2024 11:20:54 learning about high blood pressure [email or web address] Not available 01/21/2024 11:20:54 high cholesterol : care instructions [email or web address] Not available 01/21/2024 11:20:54 05/12/2024 [id number] tooth and gum pain: care instructions [email or web address] Not available 05/12/2024 16:05:48 A healthy lifestyle: care instructions [email or web address] Not available 05/12/2024 16:05:48 learning about type 2 diabetes Not available 05/12/2024 16:05:48 type 2 diabetes: care instructions [email or web address] Not available 05/12/2024 16:05:48 medical record request* [email or web address] Not available 05/15/2024 10:06:19 learning about high blood pressure [email or web address] Not available 05/12/2024 16:05:48 high cholesterol : care instructions Not available 05/12/2024 16:05:48 Reason for Referral Diabetic Ophthalmology Refer ral for Type 2 diabetes mellitus Referring Physician: Lillie Quiñones, Family Medicine, Encounter Date: 10/01/2023 Results Created Date Observation Date Name Description Value Unit Range Abnormal Flag Note LastModifiedBy Organization Detail LastModifiedTime 09/20/19 24 09/21/2023 TSH+F REE T4 TSH 4.360 uIU/m L 0.450- 4.500 Not Available [facility] [address] [place], [address], 09/24/2023 17:08:51 09/20/19 24 09/21/2023 TSH+F REE T4 T4,free(dire ct) 0.99 NG/dL 0.82-1 .77 Not Available [facility] [address] [place], [address], 09/24/2023 17:08:51 09/20/19 24 09/24/2023 PROTH ROMBI N TIME, INR prothrombin time 10.1 sec Refer ence Range : 18 years and older : 9.1 - 12.0 Not Available [facility] [address] [place], [address], 09/24/2023 17:08:51 09/20/19 24 09/24/2023 PROTH ROMBI N TIME, INR INR 0.9 ratio Refer ence Range : >1 month : 0.9 - 1.2 Not Available [facility] [address] [place], [address], 09/24/2023 17:08:51 09/20/19 24 09/21/2023 HEMOG LOBIN A1C hemoglobin A1C 6.7 % 4.8-5. 6 above high normal Predi abete s: 5.7 - 6.4 Diabe timothy: >6.4 Glyce nabeel contr ol for adult s with diabe timothy: <7.0 Not Available [facility] [address] [place], [address], 09/24/2023 17:08:52 09/20/19 24 09/21/2023 CBC WITH DIFFE RENTI AL/PL ATELE T WBC 8.6 x10e3 /uL 3.4-10 .8 Not Available [facility] [address] [place], [address], 09/24/2023 17:08:53 09/20/19 24 09/21/2023 CBC WITH DIFFE RENTI AL/PL ATELE T RBC 4.47 x10e6 /uL 3.77-5 .28 Not Available [facility] [address] [place], [address], 09/24/2023 17:08:53 09/20/19 24 09/21/2023 CBC WITH DIFFE RENTI AL/PL ATELE T hemoglobin 13.2 g/dL 11.1-1 5.9 Not Available [facility] [address] [place], [address], 09/24/2023 17:08:53 09/20/19 24 09/21/2023 CBC WITH DIFFE RENTI AL/PL ATELE T hematocrit 39.5 % 34.0-4 6.6 Not Available [facility] [address] [place], [address], 09/24/2023 17:08:53 09/20/19 24 09/21/2023 CBC WITH DIFFE RENTI AL/PL ATELE T MCV 88 fL 79-97 Not Available [facility] [address] [place], [address], 09/24/2023 17:08:53 09/20/19 24 09/21/2023 CBC WITH DIFFE RENTI AL/PL ATELE T MCH 29.5 pg 26.6-3 3.0 Not Available [facility] [address] [place], [address], 09/24/2023 17:08:53 09/20/19 24 09/21/2023 CBC WITH DIFFE RENTI AL/PL ATELE T MCHC 33.4 g/dL 31.5-3 5.7 Not Available [facility] [address] [place], [address], 09/24/2023 17:08:53 09/20/19 24 09/21/2023 CBC WITH DIFFE RENTI AL/PL ATELE T RDW 13.4 % 11.7-1 5.4 Not Available [facility] [address] [place], [address], 09/24/2023 17:08:53 09/20/19 24 09/21/2023 CBC WITH DIFFE RENTI AL/PL ATELE T platelets 272 x10e3 /uL 150-45 0 Not Available [facility] [address] [place], [address], 09/24/2023 17:08:53 09/20/19 24 09/21/2023 CBC WITH DIFFE RENTI AL/PL ATELE T neutrophils 55 % notest ab. Not Available [facility] [address] [place], [address], 09/24/2023 17:08:53 09/20/19 24 09/21/2023 CBC WITH DIFFE RENTI AL/PL ATELE T lymphs 35 % notest ab. Not Available [facility] [address] [place], [address], 09/24/2023 17:08:53 09/20/19 24 09/21/2023 CBC WITH DIFFE RENTI AL/PL ATELE T monocytes 7 % notest ab. Not Available [facility] [address] [place], [address], 09/24/2023 17:08:53 09/20/19 24 09/21/2023 CBC WITH DIFFE RENTI AL/PL ATELE T eos 1 % notest ab. Not Available [facility] [address] [place], [address], 09/24/2023 17:08:53 09/20/19 24 09/21/2023 CBC WITH DIFFE RENTI AL/PL ATELE T basos 1 % notest ab. Not Available [facility] [address] [place], [address], 09/24/2023 17:08:53 09/20/19 24 09/21/2023 CBC WITH DIFFE RENTI AL/PL ATELE T neutrophils (absolute) 4.7 x10e3 /uL 1.4-7. 0 Not Available [facility] [address] [place], [address], 09/24/2023 17:08:53 09/20/19 24 09/21/2023 CBC WITH DIFFE RENTI AL/PL ATELE T lymphs (absolute) 3.0 x10e3 /uL 0.7-3. 1 Not Available [facility] [address] [place], [address], 09/24/2023 17:08:53 09/20/19 24 09/21/2023 CBC WITH DIFFE RENTI AL/PL ATELE T monocytes(ab solute) 0.6 x10e3 /uL 0.1-0. 9 Not Available [facility] [address] [place], [address], 09/24/2023 17:08:53 09/20/19 24 09/21/2023 CBC WITH DIFFE RENTI AL/PL ATELE T eos (absolute) 0.1 x10e3 /uL 0.0-0. 4 Not Available [facility] [address] [place], [address], 09/24/2023 17:08:53 09/20/19 24 09/21/2023 CBC WITH DIFFE RENTI AL/PL ATELE T baso (absolute) 0.1 x10e3 /uL 0.0-0. 2 Not Available [facility] [address] [place], [address], 09/24/2023 17:08:53 09/20/19 24 09/21/2023 CBC WITH DIFFE RENTI AL/PL ATELE T immature granulocytes 1 % notest ab. Not Available [facility] [address] [place], [address], 09/24/2023 17:08:53 09/20/19 24 09/21/2023 CBC WITH DIFFE RENTI AL/PL ATELE T immature grans (abs) 0.0 x10e3 /uL 0.0-0. 1 Not Available [facility] [address] [place], [address], 09/24/2023 17:08:53 09/20/19 24 09/21/2023 PT AND PTT INR 0.9 0.9-1. 2 Refer ence inter racquel is for non-a ntico agula alli patie nts. Sugge sted INR thera peuti c range for Vitam in K antag onist thera py: Stand jeff Dose (mode rate inten sity thera peuti c range ): 2.0 - 3.0 Highe r inten sity thera peuti c range 2.5 - 3.5 Not Available [facility] [address] [place], [address], 09/24/2023 17:08:53 09/20/19 24 09/21/2023 PT AND PTT prothrombin time 9.9 sec 9.1-12 .0 Not Available [facility] [address] [place], [address], 09/24/2023 17:08:53 09/20/19 24 09/21/2023 PT AND PTT APTT 26 sec 24-33 This test has not been valid ated for monit oring unfra ction ated hepar in thera py. aPTT- based thera peuti c range s for unfra ction ated hepar in thera py have not been estab maria isabel guerrero For gener al guide lines on Hepar in monit oring , refer to the [facility] Direc tornishant of Peggy durand. Not Available [facility] [address] [facility], [place], [address], 09/24/2023 17:08:53 01/21/20 24 01/21/2024 HbA1c (hemo globi n A1c), blood HbA1c 5.8 Not Available In-Office Order Internal Use Only DO Not Attach Compendium DO Not Attach Compendium, Do Not Delete/merge, [id number] 01/21/2024 11:12:13 05/16/19 25 05/15/2024 HbA1c (hemo globi n A1c), blood HbA1c 6.0 Not Available In-Office Order Internal Use Only DO Not Attach Compendium DO Not Attach Compendium, Do Not Delete/merge, [id number] 05/12/2024 15:19:51 05/30/19 25 05/30/2024 LIPID PANEL , STAND JEFF cholesterol, total 153 mg/dL <200 normal Not Available [facility] [place] [place] [address] [place], [address], 05/30/2024 03:47:55 05/30/19 25 05/30/2024 LIPID PANEL , STAND JEFF HDL cholesterol 56 mg/dL > or = 50 normal Not Available [facility] [address] [place], [address], 05/30/2024 03:47:55 05/30/19 25 05/30/2024 LIPID PANEL , STAND JEFF triglyceride s 85 mg/dL <150 normal Not Available [facility] [address] [place], [address], 05/30/2024 03:47:55 05/30/19 25 05/30/2024 LIPID PANEL , STAND JEFF LDL-choleste rol 80 mg/dL _(eric c) normal Refer ence range : <100 John able range <100 mg/dL for prima ry preve ntion ; <70 mg/dL for patie nts with CHD or diabe tic patie nts with > or = 2 CHD risk facto rs. LDL-C is now calcu lated using the Patricia n-Hop kins calcu latio n, which is a valid ated novel metho d provi ding mckenzie r accur acy than the Fried mylene equat ion in the estim ation of LDL-C . Patricia evans SS et al. BAMBI. 2013; 310(1 9): 2061- 2068 (http ://ed ucati on.Qu [employer] com/f aq/FA Q164) Not Available [facility] [address] [place], [address], 05/30/2024 03:47:55 05/30/19 25 05/30/2024 LIPID PANEL , STAND JEFF chol/HDLC ratio 2.7 (calc ) <5.0 normal Not Available [facility] [address] [place], [address], 05/30/2024 03:47:55 05/30/19 25 05/30/2024 LIPID PANEL , STAND JEFF non HDL cholesterol 97 mg/dL _(eric c) <130 normal For patie nts with diabe timothy plus 1 major ASCVD risk facto r, treat ing to a non-H DL-C goal of <100 mg/dL (LDL- C of <70 mg/dL ) is aidee rizzoo n. Not Available [facility] [address] [place], [address], 05/30/2024 03:47:55 05/30/19 25 05/30/2024 ALBUM IN, RANDO M URINE W/CRE ATINI NE creatinine, random urine 56 mg/dL 20-275 normal Not Available [place] [address] [place], [address], 05/30/2024 03:47:56 05/30/19 25 05/30/2024 ALBUM IN, RANDO M URINE W/CRE ATINI NE albumin, urine 0.3 mg/dL see note: normal Refer ence Range : Refer ence Range Not estab lishe d Not Available [address], [address], 05/30/2024 03:47:56 05/30/19 25 05/30/2024 ALBUM IN, RANDO M URINE W/CRE ATINI NE albumin/crea tinine ratio, random urine 5 mg/g_ creat <30 normal The ADA defin es abnor malit ies in album in excre tion as follo ws: Album inuri a Categ ory Resul t (mg/g creat inine ) Jacki l to Mildl y incre ased <30 Moder ately incre ased 30-29 9 Sever indy incre ased > OR = 300 The ADA recom mends that at least two of three speci mens colle cted withi n a 3-6 month perio d be abnor mal befor e consi mary g a patie nt to be withi n a diagn ostic categ ory. Not Available [address], [address], 05/30/2024 03:47:56 05/30/19 25 05/30/2024 TSH+F REE T4 TSH 5.49 mIU/L 0.40-4 .50 high Not Available [address], [address], 05/30/2024 03:47:57 05/30/19 25 05/30/2024 TSH+F REE T4 T4, free 1.1 NG/dL 0.8-1. 8 normal Not Available [address] [place], [address], 05/30/2024 03:47:57 05/30/19 25 05/30/2024 COMPR EHENS ROYA METAB OLIC PANEL glucose 95 mg/dL 65-99 normal Fasti ng refer ence inter racquel Not Available [address], [address], 05/30/2024 03:47:58 05/30/19 25 05/30/2024 COMPR EHENS ROYA METAB OLIC PANEL urea nitrogen (BUN) 28 mg/dL 7-25 high Not Available [address], [address], 05/30/2024 03:47:58 05/30/19 25 05/30/2024 COMPR EHENS ROYA METAB OLIC PANEL creatinine 0.79 mg/dL 0.50-1 .05 normal Not Available [address], [address], 05/30/2024 03:47:58 05/30/19 25 05/30/2024 COMPR EHENS ROYA METAB OLIC PANEL eGFR 84 mL/mi n/1.7 3m2 > or = 60 normal Not Available [address], [address], 05/30/2024 03:47:58 05/30/19 25 05/30/2024 COMPR EHENS ROYA METAB OLIC PANEL BUN/creatini ne ratio 35 (calc ) 6-22 high Not Available [address], [address], 05/30/2024 03:47:58 05/30/19 25 05/30/2024 COMPR EHENS ROYA METAB OLIC PANEL sodium 138 mmol/ L 135-14 6 normal Not Available [address], [address], 05/30/2024 03:47:58 05/30/19 25 05/30/2024 COMPR EHENS ROYA METAB OLIC PANEL potassium 4.0 mmol/ L 3.5-5. 3 normal Not Available [address], [address], 05/30/2024 03:47:58 05/30/1905/30/2024 COMPR EHENS ROYA METAB OLIC PANEL chloride 101 mmol/ L 98-110 normal Not Available [address], [address], 05/30/2024 03:47:58 05/30/1905/30/2024 COMPR EHENS ROYA METAB OLIC PANEL carbon dioxide 28 mmol/ L 20-32 normal Not Available [address], [address], 05/30/2024 03:47:58 05/30/19 25 05/30/2024 COMPR EHENS ROYA METAB OLIC PANEL calcium 10.0 mg/dL 8.6-10 .4 normal Not Available [address], [address], 05/30/2024 03:47:58 05/30/1905/30/2024 COMPR EHENS ROYA METAB OLIC PANEL protein, total 7.0 g/dL 6.1-8. 1 normal Not Available [address], [address], 05/30/2024 03:47:58 05/30/19 25 05/30/2024 COMPR EHENS ROYA METAB OLIC PANEL albumin 4.4 g/dL 3.6-5. 1 normal Not Available [address], [address], 05/30/2024 03:47:58 05/30/1905/30/2024 COMPR EHENS ROYA METAB OLIC PANEL globulin 2.6 g/dL_ (calc ) 1.9-3. 7 normal Not Available [address], [address], 05/30/2024 03:47:58 05/30/19 25 05/30/2024 COMPR EHENS ROYA METAB OLIC PANEL albumin/glob ulin ratio 1.7 (calc ) 1.0-2. 5 normal Not Available [address], [address], 05/30/2024 03:47:58 05/30/19 25 05/30/2024 COMPR EHENS ROYA METAB OLIC PANEL bilirubin, total 0.5 mg/dL 0.2-1. 2 normal Not Available [address], [address], 05/30/2024 03:47:58 05/30/19 25 05/30/2024 COMPR EHENS ROYA METAB OLIC PANEL alkaline phosphatase 83 U/L 37-153 normal Not Available [address], [address], 05/30/2024 03:47:58 05/30/19 25 05/30/2024 COMPR EHENS ROYA METAB OLIC PANEL AST 13 U/L 10-35 normal Not Available [address], [address], 05/30/2024 03:47:58 05/30/19 25 05/30/2024 COMPR EHENS ROYA METAB OLIC PANEL ALT 18 U/L 6-29 normal Not Available [address], [address], 05/30/2024 03:47:58 05/30/19 25 05/30/2024 CBC (INCL UDES DIFF/ PLT) white blood cell count 10.6 thous and/u L 3.8-10 .8 normal Not Available [address], [address], 05/30/2024 03:47:59 05/30/19 25 05/30/2024 CBC (INCL UDES DIFF/ PLT) red blood cell count 4.54 ravi on/uL 3.80-5 .10 normal Not Available [address], [address], 05/30/2024 03:47:59 05/30/1905/30/2024 CBC (INCL UDES DIFF/ PLT) hemoglobin 13.8 g/dL 11.7-1 5.5 normal Not Available [address], [address], 05/30/2024 03:47:59 05/30/1905/30/2024 CBC (INCL UDES DIFF/ PLT) hematocrit 42.1 % 35.0-4 5.0 normal Not Available [address], [address], 05/30/2024 03:47:59 05/30/1905/30/2024 CBC (INCL UDES DIFF/ PLT) MCV 92.7 fL 80.0-1 00.0 normal Not Available [address], [address], 05/30/2024 03:47:59 05/30/1905/30/2024 CBC (INCL UDES DIFF/ PLT) MCH 30.4 pg 27.0-3 3.0 normal Not Available [address], [address], 05/30/2024 03:47:59 05/30/1905/30/2024 CBC (INCL UDES DIFF/ PLT) MCHC 32.8 g/dL 32.0-3 6.0 normal For adult s, a sligh t decre ase in the calcu lated MCHC value (in the range of 30 to 32 g/dL) is most likel y not clini jennifer signi wen t; [facility], it shoul d be inter prete d with cauti on in corre latio n with other red cell emir eters and the patie nt's clini eric condi tion. Not Available [address], [address], 05/30/2024 03:47:59 05/30/1905/30/2024 CBC (INCL UDES DIFF/ PLT) RDW 13.4 % 11.0-1 5.0 normal Not Available [address], [address], 05/30/2024 03:47:59 05/30/1905/30/2024 CBC (INCL UDES DIFF/ PLT) platelet count 391 thous and/u L 140-40 0 normal Not Available [address], [address], 05/30/2024 03:47:59 05/30/1905/30/2024 CBC (INCL UDES DIFF/ PLT) MPV 10.5 fL 7.5-12 .5 normal Not Available [address], [address], 05/30/2024 03:47:59 05/30/1905/30/2024 CBC (INCL UDES DIFF/ PLT) absolute neutrophils 6137 cells /uL 1500-7 800 normal Not Available [address], [address], 05/30/2024 03:47:59 05/30/1905/30/2024 CBC (INCL UDES DIFF/ PLT) absolute lymphocytes 3424 cells /uL 850-39 00 normal Not Available [address], [address], 05/30/2024 03:47:59 05/30/1905/30/2024 CBC (INCL UDES DIFF/ PLT) absolute monocytes 795 cells /uL 200-95 0 normal Not Available [address], [address], 05/30/2024 03:47:59 05/30/19 25 05/30/2024 CBC (INCL UDES DIFF/ PLT) absolute eosinophils 138 cells /uL 15-500 normal Not Available [address], [address], 05/30/2024 03:47:59 05/30/19 25 05/30/2024 CBC (INCL UDES DIFF/ PLT) absolute basophils 106 cells /uL 0-200 normal Not Available [facility] [address], [address], 05/30/2024 03:47:59 05/30/19 25 05/30/2024 CBC (INCL UDES DIFF/ PLT) neutrophils 57.9 % normal Not Available [address], [address], 05/30/2024 03:47:59 05/30/1905/30/2024 CBC (INCL UDES DIFF/ PLT) lymphocytes 32.3 % normal Not Available [facility] [address], [address], 05/30/2024 03:47:59 05/30/19 25 05/30/2024 CBC (INCL UDES DIFF/ PLT) monocytes 7.5 % normal Not Available [facility] [address], [address], 05/30/2024 03:47:59 05/30/1905/30/2024 CBC (INCL UDES DIFF/ PLT) eosinophils 1.3 % normal Not Available [facility] [address], [address], 05/30/2024 03:47:59 05/30/1905/30/2024 CBC (INCL UDES DIFF/ PLT) basophils 1.0 % normal Not Available [facility] [address], [address], 05/30/2024 03:47:59 06/06/19 25 06/06/2024 T3, FREE T3, free 2.7 pg/mL 2.3-4. 2 normal Not Available [facility] [address] [place], [address], 06/06/2024 05:56:03 08/21/19 24 08/20/2023 MAMMO , scree reyna, digit al, bilat eral No observ ation record ed. [address] [facility], [place], [address], 08/22/2023 17:34:50 12/31/19 24 12/31/2023 CT, abdom en + pelvi s, w/ contr ast No observ ation record ed. [address] [address], [place], [address], 01/08/2024 11:08:29 01/01/20 24 12/31/2023 CT, chest , w/o contr ast No observ ation record ed. [address] [address], [place], [address], 01/09/2024 08:43:27 01/07/20 24 01/07/2024 CT, abdom en + pelvi s, w/ contr ast No observ ation record ed. [address] [address], [place], [address], 01/09/2024 08:45:10 02/28/19 25 02/28/2024 MRI, abdom en, w/wo contr ast No observ ation record ed. [address] [facility] [address], [place], [address], 05/12/2024 16:06:27 05/02/19 25 05/01/2024 imagi ng/di agnos tic resul t No observ ation record ed. [address] [facility] [address], [place], [address], 05/12/2024 16:06:27 05/02/19 25 05/01/2024 imagi ng/di agnos tic resul t No observ ation record ed. [email or web address] [address], [place], [address], 05/12/2024 16:06:26 05/02/19 25 05/01/2024 imagi ng/di agnos tic resul t No observ ation record ed. [facility] [address], [place], [address], 05/12/2024 16:06:26 Result Notes None recorded. Problems Name Problem SNOMED Code Status Onset Date Resolution Date Notes Provider Name and Address Organization Details Recorded Time Tequila cronin 37409149 Active 2016 LILLIE QUIÑONES PA-C Attn: Accounting ,2040 [place], [address] , [facility] 4 12:03:31 Obesity 279918165 Completed 201607/05/2017 Phuong Payton PA-C Attn: Accounting ,[address] [place], [address] , [facility] 8 14:27:03 Chronic pain 56558234 Active 2016 Phuong Payton PA-C Attn: Accounting ,[address] [place], [address] , [facility] 7 14:39:16 Tobacco user 311262358 Active 2016 Phuong Payton PA-C Attn: Accounting ,[address] [place], [address] , [facility] 7 09:44:51 Hyperlip idemia 65093950 Active 2016 Phuong Payton PA-C Attn: Accounting ,[address] [place], [address] , [facility] 7 09:45:13 Psoriasi s 9238698 Active 2016 LILLIE QUIÑONES PA-C Attn: Accounting ,[address] [place], [address] , [place] [facility] 4 12:03:23 Chronic obstruct roya pulmonar y disease 89810097 Active 2016 Phuong Payton PA-C Attn: Accounting ,[address] [place], [address] , [place] [facility] 7 09:48:43 Abdomina l bloating 450582477 Active 2017 Phuong Payton PA-C Attn: Accounting ,[address] [place], [address] , [place] [facility] 8 16:20:55 Allergic disposit ion 542283955 Active 2017 Phuong Payton PA-C Attn: Accounting ,[address] [place], [address] , [place] [facility] 8 16:49:24 Body mass index 30+ - obesity 826584454 Active 2017 Phuong Payton PA-C Attn: Accounting ,[address] [place], [address] , [place] [facility] 8 14:27:18 Chronic intersti tial cystitis 446274976 Active 2017 Phuong Payton PA-C Attn: Accounting ,[address] [place], [address] , [place] [facility] 8 15:09:49 Chronic pancreat itis 272153959 Active 2017 Phuong Payton PA-C Attn: Accounting ,[address] [place], [address] , [place] [facility] 8 13:54:50 Polyarth ropathy 20202149 Active 2018 Consider rheumato logy consult SHAUNA MENG Attn: Accounting ,[address] [place], [address] , [place] [facility] 9 09:11:51 Carpal tunnel syndrome 14689930 Active 2019 Followin g with [facility] Ortho, current tx with splints at night SHAUNA MENG Attn: Accounting ,[address] [facility] [address], [place], [address] , [place] [facility] 0 09:20:39 Cervical spondylo sis with myelopat hy Active 2019 Xray of cervical spine showed disc space narrowin g at C6-C7. Hoping to see [facility] spine speciali st SHAUNA MENG Attn: Accounting ,[address] [facility] [address] [address], [place], [address] , [place] [facility] 0 09:21:47 Impaired glucose toleranc e 0110870 Active 2019 SHAUNA MENG Attn: Accounting ,[address] [facility] [address], [place], [address] , [place] [facility] 0 13:58:39 Vitamin D below referenc e range 844416282 Active 2022 SHAUNA MENG Attn: Accounting ,[address] [facility] [address], [place], [address] , [place] [facility] 3 12:27:27 Psoriati c arthriti s 202173504 Active 2022 SHAUNA MENG Attn: Accounting ,[address] [facility] [address], [place], [address] , [place] [facility] 3 12:27:30 Keratosi s 179549524 Active 2023 LILLIE QUIÑONES PA-C Attn: Accounting ,[address] [facility] [address], [place], [address] , [place] [facility] 4 11:18:41 Leukopla miko 815463604 Active 2023 LILLIE QUIÑONES PA-C Attn: Accounting ,[address] [facility] [address], [place], [address] , [place] [facility] 4 11:18:49 Type 2 diabetes mellitus 65754310 Active 2023 LILLIE QUIÑONES PA-C Attn: Accounting ,[address] [facility], [place], [address] , [facility] 4 15:17:40 Subclini eric hypothyr oidism 43674213 Active 2024 LILLIE QUIÑONES PA-C Attn: Accounting ,[address] [facility] [address], [place], [address] , [facility] 5 09:17:45 Perforat ion of nasal septum 85601880 Active 2024 LILLIE QUIÑONES PA-C Attn: Accounting ,[address] [facility] [address], [place], [address] , [facility] 5 11:34:08 Notes:Some problems listed i n Document: #[id number] could not be added to this patient's chart. Please review this document and add these problems to the patient's chart manually as needed. Problem Notes None recorded. Procedures Surgical History Date Name Laterality Status Provider Name and Address Organization Details Recorded Time 022 Date of Last Pap Smear completed Tania Tobar [place] 02/10/2022 10:39:46 021 Date of Last Mammogram completed Tania Tobar [place] [facility] 02/10/2022 10:39:55 018 Most Recent Mammogram completed Carlos Alberto Norwood [place] [facility] 02/25/2018 15:30:25 018 Endometrial Biopsy completed Cary Matamoros MD Attn: Accounting,[address] [facility] [address], [place], [address], [facility] 12/05/2017 13:54:27 Cholecystectomy completed Kenna Nolen [place] [facility] 01/22/2017 11:58:20 Imaging Results Imaging Date Name Status [facility] Details LastModified Time 08/20/2023 MAMMO, screening, digital, bilateral completed [facility] [address], [place], [address], 08/22/2023 17:34:50 12/31/2023 CT, abdomen + pelvis, w/ contrast completed [address], [address], 01/08/2024 11:08:29 12/31/2023 CT, chest, w/o contrast completed [address], [address], 01/09/2024 08:43:27 01/07/2024 CT, abdomen + pelvis, w/ contrast completed [address] [address], [place], [address], 01/09/2024 08:45:10 02/28/2024 MRI, abdomen, w/wo contrast completed [address] [facility] [address], [place], [address], 05/12/2024 16:06:27 05/01/2024 imaging/diagno stic result completed [address] [facility] [address], [place], [address], 05/12/2024 16:06:27 05/01/2024 imaging/diagno stic result completed [address] [facility] [address], [place], [address], 05/12/2024 16:06:26 05/01/2024 imaging/diagno stic result completed [address] [facility] [address], [place], [address], 05/12/2024 16:06:26 Procedure Notes None recorded. Medical Equipment None Reported. Allergies Allergen ID Allergen Name Allergen Category Reaction Reaction Severity Criticality Documentation Date Start Date Code Code System Note Provider Name and Address Organization Details Recorded Time 690922 Product containin g penicilli n (product) medicatio n Not available Not available Not available 01/22/2017 51564 6085 SNOMED Pt don't know had react ion as child Fern Farris [place], [place] [facility] 8 14:43:19 [id number] azithromy bhavesh medicatio n hives Not available Not available 01/23/2018 82977 RxNorm Victoria Cortes [place], [place] [facility] 9 15:15:01 882203 Milk (substanc e) food,medi cation Not available Not available Not available 01/21/2024 54145 002 SNOMED Edna Jung [place], [place] [facility] 4 10:28:56 Medications Name Sig Start Date Stop Date Status Note LastModified by Organization Details LastModified Time multivita min tablet Take 1 tablet every day by oral route. 09/06 completed Not Available Not Available Not Available losartan 50 mg tablet TAKE 1 TABLET BY MOUTH ONCE DAILY DIRECTED active Not Available Not Available No t Available carisopro dol 350 mg tablet Take 1 tablet every day by oral route as needed. 11/07 completed Not Available Not Available Not Available cyclobenz aprine 10 mg tablet TAKE 1 TABLET BY MOUTH THREE TIMES DAILY NEEDED active Not Available Not Available No t Available fluconazo le 100 mg tablet TAKE 1 TABLET BY MOUTH ONCE DAILY 07/24 completed Not Available Not Available Not Available atorvasta tin 40 mg tablet Take 1 tablet by mouth once daily at bedtime 2024 active Not Available Not Available Not Avai lable nystatin 100,000 unit/mL oral suspensio n Take 5 mL 4 times a day by oral route as directed for 10 days. 04/26 completed Not Available Not Available Not Available prednison e 10 mg tablet TAKE 4 TABLETS BY MOUTH ONCE DAILY FOR 3 DAYS, THEN TAKE 3 TABS ONCE DAILY FOR 3 DAYS, THEN TAKE 2 TABS ONCE DAILY FOR 3 DAYS, AND THEN TAKE 1 TAB ONCE DAILY FOR 3 DAYS 04/25 completed Not Available Not Available Not Available doxycycli ne hyclate 100 mg capsule TAKE 1 CAPSULE BY MOUTH DAILY FOR 5 DAYS 05/12 completed Not Available Not Available Not Available clindamyc in HCl 300 mg capsule TAKE 1 CAPSULE BY MOUTH TWICE DAILY 07/24 completed Not Available Not Available Not Available triamcino lone acetonide 0.5 % topical cream APPLY A THIN LAYER TO THE AFFECTED AREA(S) BY TOPICAL ROUTE 2 TIMES PER DAY 05/27 completed Not Available Not Available Not Available cetirizin e 10 mg tablet TAKE 1 TABLET BY MOUTH ONCE DAILY NEEDED active Not Available Not Available No t Available azithromy bhavesh 250 mg tablet TAKE 2 TABLETS BY MOUTH ON DAY 1, AND THEN TAKE 1 TABLET BY MOUTH ONCE A DAY ON DAY 2 THROUGH DAY 5 04/25 completed Not Available Not Available Not Available fluconazo le 150 mg tablet TAKE 1 TABLET BY MOUTH ONCE DAILY DIRECTED FOR 14 DAYS 08/25 completed Not Available Not Available Not Available metoprolo l succinate ER 50 mg tablet,ex tended release 24 hr Take 1 tablet every day by oral route as directed for 30 days. 03/17 completed Not Available Not Available Not Available hydrocodo ne 5 mg-acetam inophen 325 mg tablet TAKE 1 TABLET BY MOUTH TWICE DAILY NEEDED 07/24 completed Not Available Not Available Not Available methadone 10 mg tablet Take 1 tablet twice a day by oral route as needed. 03/08 completed Not Available Not Available Not Available meloxicam 15 mg tablet TAKE 1 TABLET BY MOUTH TWICE DAILY NEEDED 05/12 completed Not Available Not Available Not Available lisinopri l 20 mg tablet Take 1 tablet twice a day by oral route. 06/05 completed Not Available Not Available Not Available metoprolo l succinate ER 100 mg tablet,ex tended release 24 hr TAKE 1 TABLET BY MOUTH AT NIGHT active Not Available Not Available No t Available loperamid e 2 mg tablet Take 1 tablet 3 times a day by oral route as directed for 30 days. 06/11 completed Not Available Not Available Not Available Debrox 6.5 % ear drops INSTILL 5 DROPS INTO AFFECTED EAR(S) BY OTIC ROUTE 2 TIMES PER DAY 07/24 completed Not Available Not Available Not Available clobetaso l 0.05 % topical cream APPLY A THIN LAYER TO THE AFFECTED AREA(S) BY TOPICAL ROUTE 2 TIMES PER DAY for 2 weeks 10/03 completed Not Available Not Available Not Available permethri n 5 % topical cream APPLY (THOROUG HLY MASSAGE INTO SKIN FROM HEAD TO SOLES OF FEET) BY TOPICAL ROUTE ONCE LEAVE ON FOR 8-14 HR, THEN REMOVE BY THOROUGH WASHING 02/10 completed Not Available Not Available Not Available valsartan 80 mg tablet Take 1 tablet every day by oral route. 06/11 completed Not Available Not Available Not Available fexofenad ine 180 mg tablet Take 1 tablet every day by oral route as directed for 30 days. 01/19 completed Not Available Not Available Not Available tramadol 50 mg tablet TAKE 2 TABLETS BY MOUTH FOUR TIMES DAILY NEEDED. MUST LAST 21 DAYS. active Not Available Not Available No t Available acetamino phen 500 mg tablet TAKE 2 TABLETS BY MOUTH EVERY 6 HOURS NEEDED FOR PAIN 05/12 completed Not Available Not Available Not Available triamcino lone acetonide 0.1 % topical cream APPLY A THIN LAYER TO THE AFFECTED AREA (S) BY TOPICAL ROUTE 2 TIMES PER DAY ON OUTSIDE OF EAR FOR 7-10 DAYS. active Not Available Not Available No t Available guaifenes in 200 mg tablet TAKE 1 TABLET BY MOUTH FOUR TIMES DAILY NEEDED FOR COUGH 05/12 completed Not Available Not Available Not Available Macrobid 100 mg capsule Take 1 capsule every 12 hours by oral route as directed for 5 days. 12/30 completed Not Available Not Available Not Available nortripty line 25 mg capsule TAKE 1 CAPSULE BY MOUTH ONCE DAILY AT BEDTIME active Not Available Not Available No t Available terbinafi ne HCl 250 mg tablet Take 1 tablet every day by oral route in the morning for 30 days. 02/10 completed Not Available Not Available Not Available famotidin e 20 mg tablet active Not Available Not Available Not Available benzonata te 100 mg capsule TAKE 1 CAPSULE BY MOUTH TWICE DAILY NEEDED FOR COUGH 05/12 completed Not Available Not Available Not Available triamcino lone acetonide 40 mg/mL suspensio n for injection Take 1 mL every day by injectio n route for 1 day. 02/24 completed Not Available Not Available Not Available hydrocodo ne 7.5 mg-acetam inophen 325 mg tablet TAKE 1 TABLET BY MOUTH FOUR TIMES DAILY NEEDED FOR PAIN. MUST LAST 21 DAYS. active Not Available Not Available No t Available pantopraz ole 40 mg tablet,de layed release TAKE 1 TABLET BY MOUTH ONCE DAILY active Not Available Not Available No t Available nortripty line 10 mg capsule Take 1 capsule every day by oral route at bedtime. 06/11 completed Not Available Not Available Not Available nitrofura ntoin macrocrys zaynab 100 mg capsule Take 1 capsule twice a day by oral route for 7 days. 11/07 completed Not Available Not Available Not Available nystatin 100,000 unit/gram topical cream APPLY TO THE AFFECTED AREA(S) BY TOPICAL ROUTE 2 TIMES PER DAY 03/17 completed Not Available Not Available Not Available oxycodone 5 mg capsule Take 1 capsule 4 times a day by oral route as needed. 11/07 completed Not Available Not Available Not Available hydrochlo rothiazid e 12.5 mg capsule Take 1 capsule every day by oral route. 06/05 completed Not Available Not Available Not Available gabapenti n 300 mg capsule TAKE 1 CAPSULE BY MOUTH THREE TIMES DAILY NEEDED 05/27 completed Not Available Not Available Not Available hydrochlo rothiazid e 25 mg tablet TAKE 1 TABLET BY MOUTH ONCE DAILY 2024 active Not Available Not Available Not Avai lable mupirocin 2 % topical ointment APPLY A SMALL AMOUNT TO THE AFFECTED AREA BY TOPICAL ROUTE 3 TIMES PER DAY 03/17 completed Not Available Not Available Not Available metoprolo l succinate ER 25 mg tablet,ex tended release 24 hr Take 1 tablet every day by oral route as directed for 30 days. 03/17 completed Not Available Not Available Not Available ibuprofen 600 mg tablet TAKE 1 TABLET BY MOUTH THREE TIMES DAILY NEEDED FOR PAIN active Not Available Not Available No t Available methylpre dnisolone 4 mg tablets in a dose pack TAKE BY MOUTH DIRECTED ON INSIDE OF PACKAGE 09/06 completed Not Available Not Available Not Available albuterol sulfate HFA 90 mcg/actua tion aerosol inhaler INHALE 2 TO 4 PUFFS BY MOUTH EVERY 4 TO 6 HOURS NEEDED FOR COUGH AND FOR SHORTNES S OF BREATH active Not Available Not Available No t Available hydroxyzi ne HCl 10 mg tablet Take 1 tablet 3 times a day by oral route as needed for 7 days. 12/21 completed Not Available Not Available Not Available lisinopri l 40 mg tablet Take 1 tablet every day by oral route. 01/29 completed Not Available Not Available Not Available ondansetr on 4 mg disintegr ating tablet DISSOLVE 1 TABLET ON THE TONGUE EVERY 8 HOURS NEEDED FOR NAUSEA OR VOMITING 05/12 completed Not Available Not Available Not Available cefdinir 300 mg capsule TAKE 1 CAPSULE BY MOUTH EVERY 12 HOURS WITH MEALS FOR 10 DAYS 12/21 completed Not Available Not Available Not Available fluticaso ne propionat e 50 mcg/actua tion nasal spray,randall pension USE 1 SPRAY(S) IN EACH NOSTRIL ONCE DAILY DIRECTED 05/12 completed Not Available Not Available Not Available metformin ER 500 mg tablet,ex tended release 24 hr Take 1 tablet every day by oral route for 30 days, for diabetes . 2024 active Not Available Not Available Not Avai lable dicyclomi ne 10 mg capsule TAKE 1 CAPSULE BY MOUTH 4 TIMES DAILY NEEDED FOR ABDOMINA L PAIN active Not Available Not Available No t Available loratadin e 10 mg tablet TAKE 1 TABLET BY MOUTH ONCE DAILY DIRECTED FOR 30 DAYS 02/10 completed Not Available Not Available Not Available neomycin- polymyxin -hydrocor t 3.5 mg-10,000 unit/mL-1 % ear drops,randall p INSTILL 4 DROPS INTO AFFECTED EAR(S) BY OTIC ROUTE 3 TIMES PER DAY X 7 DAYS 08/25 completed Not Available Not Available Not Available Bactrim DS 800 mg-160 mg tablet Take 1 tablet every 12 hours by oral route as directed for 7 days. 02/10 completed Not Available Not Available Not Available Alcohol Prep Pads Use to check blood sugars once daily in the morning 2023 active Not Available Not Available Not Avai lable chlorhexi dine gluconate 0.12 % mouthwash Place 15 mL twice a day by mucous membrane route for 30 days. 2024 active Not Available Not Available Not Avai lable amlodipin e 10/31 completed Possibly d/c by cardiolo gy due to bilatera l lower leg edema, ask at next appointm ent Not Available Not Available Not Available cholecalc iferol (vitamin D3) 25 mcg (1,000 unit) tablet TAKE 1 TABLET BY MOUTH ONCE DAILY active Not Available Not Available No t Available Calcium with Vitamin D 600 mg-10 mcg (400 unit) tablet Take 1 tablet twice a day by oral route. 09/06 completed Not Available Not Available Not Available Creon 12,000-38 ,000-60,0 00 unit capsule,d elayed release Take 2 capsules 3 times a day by oral route with meals. 07/11 completed Not Available Not Available Not Available Ensure Active Clear oral liquid Take 296 mL 4 times a day by oral route as directed for 30 days. 01/23 completed Not Available Not Available Not Available Ozempic 0.25 mg or 0.5 mg (2 mg/1.5 mL) subcutane ous pen injector Inject 0.25 mg every week by subcutan eous route for 30 days. 2024 active Not Available Not Available Not Avai lable metoprolo l succinate ER 100 mg capsule sprinkle, ext. release 24 hr active Not Available Not Available Not Available Ubrelvy 50 mg tablet TAKE 1 TABLET BY MOUTH ONCE DAILY NEEDED active Not Available Not Available No t Available Vitals Date Recorded Body height Body mass index (BMI) Body weight Oxygen saturation Oxygen saturation in Arterial blood by Pulse oximetry Heart rate Systolic blood pressure Diastolic blood pressure Provider Name and Address Organization Details Last Updated DateTime 4 162.56 cm 36.1 kg/m2 22834.1 2 g 97 % 97 % 52 /min 132 mm[Hg] 84 mm[Hg] Diana Thompson [place] [facility] 4 16:16:33 Date Recorded Body height Body mass index (BMI) Body weight Oxygen saturation Oxygen saturation in Arterial blood by Pulse oximetry Heart rate Systolic blood pressure Diastolic blood pressure Provider Name and Address Organization Details Last Updated DateTime 4 162.56 cm 35.9 kg/m2 14504.8 1 g 96 % 96 % 63 /min 126 mm[Hg] 72 mm[Hg] Diana Thompson [place] - [facility] 4 16:23:13 Date Recorded Body height Body mass index (BMI) Body weight Heart rate Body temperature Systolic blood pressure Diastolic blood pressure Provider Name and Address Organization Details Last Updated DateTime 4 162.56 cm 35 kg/m2 00135.8 4 g 87 /min 97 [degF] 122 mm[Hg] 76 mm[Hg] DAWSON Levy [facility] 4 11:05:05 Date Recorded Body height Body mass index (BMI) Body weight Oxygen saturation Oxygen saturation in Arterial blood by Pulse oximetry Heart rate Systolic blood pressure Diastolic blood pressure Provider Name and Address Organization Details Last Updated DateTime 4 162.56 cm 34.5 kg/m2 61715.0 7 g 97 % 97 % 66 /min 120 mm[Hg] 78 mm[Hg] Edna Jung MA [facility] 4 10:33:31 Date Recorded Body height Body mass index (BMI) Body weight Body temperature Oxygen saturation Oxygen saturation in Arterial blood by Pulse oximetry Heart rate Systolic blood pressure Diastolic blood pressure Provider Name and Address Organization Details Last Updated DateTime 5 162.56 cm 35.2 kg/m2 75618.5 1 g 97.9 [degF] 97 % 97 % 79 /min 120 mm[Hg] 72 mm[Hg] Diana Thompson [place] - [facility] 5 15:32:17 Social History Question Answer Notes LastModified by Organizat ion Details LastModified Time Tobacco Smoking Status Former Smoker Victoria Cortes MA [facility], [place] - [facility] 02/25/2020 10:45:31 Do You Have An Advance Directive? No Information not available 01/22/2017 What Is Your Level Of Alcohol Consumption? None Information not available 01/22/2017 Is Blood Transfusion Acceptable In An Emergency? Yes Information not available 03/08/2017 What Is Your Level Of Caffeine Consumption? Heavy Information not available 01/22/2017 Live With Cats/exposure To Cat Litter Yes New Cat, May Have Allergy 01/23/18 Information not available 01/23/2018 How Much Tobacco Do You Chew? None Information not available 01/22/2017 In The 14 Days Before Symptom Onset, Have You Had Close Contact With A Laboratory-confir med COVID-19 While That Case Was Ill? No Information not available 08/10/2020 In The 14 Days Before Symptom Onset, Have You Had Close Contact With A Person Who Is Under Investigation For COVID-19 While That Person Was Ill? No Information not available 08/10/2020 Have You Been To An Area Known To Be High Risk For COVID-19? No Information not available 08/10/2020 Are You Currently Employed? No Information not available 03/08/2017 What Type Of Diet Are You Following? REGULAR Information not available 01/22/2017 Which Illicit Or Recreational Drugs Have You Used? None Information not available 01/22/2017 Do You Or Have You Ever Used E-cigarettes Or Vape? Never Used Electronic Cigarettes [email or web address] Information not available 08/21/2019 Education 2 Year College Information not available 01/22/2017 Frequent Air Travel Yes Information not available 01/23/2018 Are There Any Guns Present In Your Home? No Information not available 01/22/2017 Hard Of Hearing Or Deaf In One Or Both Ears? No Information not available 01/22/2017 Legally Blind In One Or Both Eyes? No Information no t available 01/22/2017 Live Alone Or With Others? With Others Information not available 03/08/2017 Marital Status Informatio n not available 01/22/2017 What Was The Date Of Your Most Recent Tobacco Screening? 05/12/2024 [email or web address] Information not available 05/12/2024 How Many Children Do You Have? 2 Information not available 03/08/2017 Performs Monthly Self-breast Exam? No Information no t available 01/22/2017 What Is Your Relationship Status? Information not available 03/08/2017 Seat Belts Used Routinely Yes Information not available 01/22/2017 Are You Sexually Active? Yes Information not available 03/08/2017 Smoke Alarm In Home Yes Information not available 01/22/2017 Do You Have Smoke And Carbon Monoxide Detectors In Your Home? Yes Information not available 01/23/2018 At What Age Did You Start Smoking Tobacco? 16 Information not available 01/22/2017 Are You Passively Exposed To Smoke? Yes Information no t available 03/17/2022 Do You Or Have You Ever Used Smokeless Tobacco? Never Used Smokeless Tobacco Information not available 02/25/2020 How Much Tobacco Do You Smoke? No Information not available 02/25/2020 General Stress Level Medium Information not available 01/22/2017 Do You Use Sunscreen Routinely? No Information not available 01/22/2017 Has Tobacco Cessation Counseling Been Provided? No Information not available 03/17/2022 On What Date Was Tobacco Cessation Counseling Provided? 01/21/2024 [email or web address] Information not available 01/21/2024 How Many Years Have You Smoked Tobacco? 40 Information not available 01/22/2017 Sex: Unknown Functional Status Question Answer Note LastModified by Organization D etails LastModified Time What is your exercise level? None Information not available 01/22/2017 Mental Status None recorded. Family History Relationship Description Onset Age of this Age Resolved Age Notes LastModified by Organization Details LastModified Time Sister Disorder of thyroid gland Not available 2016 11:53:29 Sister Hypercholest erolemia Not available 2016 11:54:14 Father Hypercholest erolemia Not available 2016 11:54:14 Brother Hypercholest erolemia Not available 2016 11:54:14 Mother Malignant tumor of stomach 57 57 + liver mets [email or web address] Not available 08/21/2019 13:00:10 Medical History Condition Response Other N High Blood Pressure Y Breast Cancer N Kidney or Bladder Problems N Thyroid Problems N GI Problems N Lung Disease N Depression N Acne N Eating Disorder N Breast Problem N Skin Problems Y Anemia N Anesthesia Complications N Headaches/Migraines Y Anxiety Disorder N Ovarian Cancer N Diabetes N Muscle, Joint, or Bone Problems Y Blood Transfusions N Seizures/Epilepsy N Infertility N Polyps N Acid Reflux (GERD) Y Cancer N Abuse/Domestic Violence N Asthma Y Endometriosis N High Cholesterol Y Hepatitis N Liver Disease N Heart Disease N Headaches Y Pre-Eclampsia N Osteoporosis N Gynecological History Statement/Question Response Abnormal Pap Yes Date of Last Mammogram 12/27/2020 Flow Moderate Date of LMP On BCP's at Conception? N STIs/STDs Y HPV Vaccine N Most Recent Mammogram 01/29/2018 Current Control Method Menopause Age at First Child 23 If Post Menopausal, Age at Menopause 55 Sexually Active? Y Menses Monthly N Date of Last Pap Smear 02/10/2022 Sexual Problems? N LMP Unknown Desired Control Method None Obstetrics History GPAL:G 2 P 2 0 0 2 Type Value Full Term 2 Living 2 Total 2 Immunizations Vaccine Type Date Status Note Provider Jeffery francisco and Address Organization Details Recorded Time COVID-19, mRNA, LNP-S, PF, 30 mcg/0.3 mL dose 1 completed MYRIAM [place], [place] - [facility] 04/25/2023 11:46:57 COVID-19, mRNA, LNP-S, PF, 30 mcg/0.3 mL dose 1 [place] MY[place]AM [place] [facility] 04/25/2023 11:46:57 COVID-19, mRNA, LNP-S, PF, 30 mcg/0.3 mL dose 1 completed MYRIAM [place] [facility] 04/25/2023 11:46:57 Tdap 7 completed Not [facility] 03/15/2019 02:34:49 Pneumococcal conjugate PCV20, polysaccharide HFH182 conjugate, adjuvant, PF 5 completed MYRIAM [place], [place] - [facility] 05/12/2024 16:30:48 Past Encounters Encounter ID Performer Location Encounter Start Date Encounter Closed Date Diagnosis/Indication Diagnosis SNOMED-CT Code Diagnosis ICD10 Code Diagnosis Note [id number] Divina masters MD [facility] (Adult Med) [facility] [place] [address] 01/22/2017 11:08:01 01/22/2017 16:32:27 Active or passive immunization 343613592 Z23 Adult heal th examination 143871638 Z00.01 56YO female here to establish care. She recently moved here from [place]. She has a hx/o HTN, hyperlipid emia, states that she had an extra heart beat, spinal stenosis, interstiti al cystitis. States that she is on Soma, methadone, and oxycodone for chronic pain d/t spinal stenosis and interstiti al cystitis. She is currently out of all pain medication and states that her pain management doctor from [place] will not prescribe her any pain medication because she no longer lives in [place]. 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 (Adult Med) [address] [place] [phone] 02/21/2017 09:07:58 02/21/2017 10:02:02 Urinary tract infectious disease 05536489 N39.0 Advised to increase water intakeTake abx as prescribeA zo OTCStay away from sugary drinks Hyperlipidemia 52907787 E78.2 Will initiate atorvastat in 40mg qPM at this timePatien t to RTC in 3 months to repeat labs Essential hypertension 41856549 I10 12/84 - c/w current medication as prescribed by previous PCPDiscuss ed DASH diet Advised 30 minutes of exercise minimum dailyAdvis ed tobacco, alcohol, caffeine all increase BPAdvised goal for BP is <140/90 Patient states that she thinks she was told to not exercise because her BP elevates to an unsafe level with exercise but she is unsure - will refer to cardiology for evaluation Chronic pain 15998754 G8 9.29 Patient has an appointmen t scheduled already with pain management - states that she will let us know the name of the physician for pain management [id number] MD Raquel Nur ([facility]) [address] [place] [phone] 03/08/2017 14:09:22 03/13/2017 12:26:48 Gynecologic examination 98718469 Z01.411 Screening mammography 24 217489 Z12.31 Psoriasis of vulva 07426 4003 L40.9 Counseled about it. Pruritus of vulva 435521 00 L29.2 Counseled about it. Leukocytes in urine 2757 65723 R82.79 Counseled about it. MD Raquel Gama (Adult Med) [address] [place] [phone] 04/30/2017 15:53:07 04/30/2017 18:08:00 Abdominal bloating 853451793 R14.0 Advised BRAT dietWill refer to GI at this timeDrink plenty of waterc/w Nexium daily OTC Allergic disposition 609 604911 Z91.09 Recently moved to the area and feels that her allergies are acting up [id number] MD Raquel Gama (Adult Med) [address] [place] [phone] 07/05/2017 13:53:57 07/05/2017 14:41:38 Urinary tract infectious disease 73422986 N39.0 Advised to increase water intakeTake abx as prescribed Azo OTCStay away from sugary drinks Dysuria 70062620 R30.0 positive UAWill culture urine Tobacco user 354370029 Z 72.0 Advised to quit Essential hypertension 75518170 I10 114/60 - c/w current medication as prescribed by previous PCPDiscuss ed DASH diet Advised 30 minutes of exercise minimum dailyAdvis ed tobacco, alcohol, caffeine all increase BPAdvised goal for BP is <140/90 Pancreatitis 45395418 K8 5.90 Has already f/u'ed with GI Chronic ob structive pulmonary disease 35035882 J44.9 No signs of exacerbati on. Chronic pain 76844973 G8 9.29 Advised to continue to follow with Dr. Jefferson's office Hyperlipidemia 22673700 E78.2 C/w atorvastat in 40mg qPM at this time Chronic in terstitial cystitis 227315427 N30.10 Patient does not want a referral to urology at this time; states that she just deals with it at home Body mass index 30+ - obesity 013047327 Z68.39 Advised 30 minutes of exercise 5 days/week Advised to not drink her calories Advised 3 balanced meals/day with plenty of fruits and vegetables [id number] ИРИНА COOL NP-C Raquel MEDINA (Adult Med) [address] [place] [phone] 11/07/2017 09:54:25 11/08/2017 10:55:40 Chronic pancreatitis 285816729 K86.1 concern for chronic pancreatit is get labs done see GI-either [facility] or [facility] try creon with meals to see if it helps her pain f/u with GI-may need ERCP Plaque psoriasis 0048977 09 L40.0 kenalog IM today send for dermatolog y referral f/u as needed [id number] MD Raquel Nur ([facility]) [address] [place] [phone] 11/27/2017 11:50:37 11/27/2017 12:51:59 Postmenopausal bleeding 07763054 N95.0 counseled about causes, risks of it. offered endometria l biopsy and counseled about procedure. she verbalized understand ing and she agrees for it. she wanted to come back for it. advised to take pain medication like tylenol 1-2 hrs before she come in for endometria l biopsy. Upper abdominal pain 831 20976 R10.10 Obese 819353326 E66.9 Counseled About weight loss, diet and excercise. Advised patient to f/u with sweeper brush maker machine. Microscopic hematuria 19 6946059 R31.21 possible from vaginal bleeding. Also advised to f/u with PCCP to r/o other causes. Proteinuria 13205736 R80 .9 possible from vaginal bleeding. Also advised to f/u with PCCP to r/o other causes. Bilirubinuria 44096363 R 82.2 advised to f/u with GI. [id number] MD Raquel Nur ([facility]) [address] [place] [phone] 12/05/2017 12:20:18 12/05/2017 13:42:49 Postmenopausal bleeding 93520204 N95.0 D/W patient ultrasound result.cou nseled about causes, risks of it. offered endometria l biopsy and counseled about procedure. she verbalized understand ing and she agrees for it. Counseled about colposcopy , cervical biopsy and ECC. Counseled about the procedure and its risks including infection, bleeding, damage to internal organs, indicated procedures . Patient verbalized understand ing. Consent signed which is in chart. Refer to procedure note. Advised patient to go to ER if bleeding more than a pad per hour, fever > 100.4, and severe pain. [id number] MD Raquel Palmer (Adult Med) [address] [place] [phone] 12/06/2017 14:18:54 12/07/2017 10:21:36 Chronic pancreatitis 905717521 K86.1 stable, but still has chronic pain off and on and poor oral intake. Hyperglycemia 69931701 R 73.9 FBS 140 mg%, discussed with patient, due to family history of type 2DM, and her pancreatit is , will order 2 -hour GTT. She agreed. Proteinuria 12831844 R80 .9 Resolved. Urine is clean, negative for protein and bilirubin, discussed with patient. Essential hypertension 56414511 I10 Well controlled , advised to be on low salt diet. Nicotine dependence 5629 4008 F17.200 Hyperlipidemia 76592545 E78.5 Low saturated fat diet, avoid alcohol. [id number] MD Raquel Nur ([facility]) [address] [place] [phone] 01/23/2018 14:11:55 01/23/2018 16:27:44 Tenderness of breast 61043026 N64.4 Counseled about it. Skin disor caitlyn of breast 894158792 N64.89 Counseled about diffuse rash of breast. Counseled about possible causes including nemign and malignant breast conditions . Refer to breast surgeon and dermatolog y. [id number] MD Raquel Nur ([facility]) [address] [place] [phone] 02/25/2018 15:15:44 02/27/2018 09:09:21 Pain in pelvis 11164874 R10.2 Counseled about possible causes. Patient has h/o chronic interstiti al cystitis. Patient refusing any medicine for it. Chronic in terstitial cystitis 442690513 N30.10 Counseled about it. UA negative for UTI today. Postmenopa usal bleeding 06098524 N95.0 D/W patient EMB result which is normal.Rep eat ultrasound to f/u on finding on previous ultrasound . [id number] MD Raquel Palmer (Adult Med) [address] [place] [address] 07/11/2018 10:27:00 07/11/2018 12:25:38 Hyperlipidemia 49000485 E78.5 Low saturated fat diet, avoid alcohol. Essential hypertension 83238726 I10 Well controlled , advised to be on low salt diet. Under the care of her cardiologi st. Psoriasis 6626849 L40.9 Discussed with patient, agreed for topical cream , will see dermatolog ist in the near future. Cervical radiculopathy 10238320 M54.12 Epidural injection did not work she said. Discussed with patient, agreed the spine surgeon referral. [id number] SHAUNA MENG (Adult Med) [address] [place] [address] 10/31/2018 14:49:14 11/04/2018 10:53:34 Chronic pancreatitis 516621225 K86.1 hx of chronic pancreatit is- Will check labs Hyperlipidemia 78789353 E78.2 Takes atorvastat in 40 mg Essential hypertension 28677070 I10 BP Today: 112/78c/w metoprolol 50 mg Discussed DASH diet Advised 30 minutes of exercise minimum daily Advised tobacco, alcohol, caffeine all increase BP Advised goal for BP is <140/90 Contact office if BP is > 140/90 consistent ly DIscussed consequenc es of HTN including kidney, eye, heart damage, stroke, and even Follows with [facility] Allergic disposition 609 616968 T78.40XA Thinks she has allergies, her nasal area is driving her crazy, feels completely stuffed, and cannot breathe through her nose. It is worse at night. Unsure if there is something in her house causing the issue.- Will start flonase Chronic pain 74697394 G8 9.29 Hx of chronic pain, cervical and lumbar radiculopa thy[place], [place] was on multiple pain medication s while thereNo longer taking pain medication s here- May benefit from a pain management clinic in the future Adult heal th examination 222835677 Z00.00 Will check labs Psoriasis 0404976 L40.9 Entire extensor surface of right forearm with an erythemato us, raised patch of skinPt. states only Kenalog getachewWe are currently out of Kenalog in the officeShe is to check back with Dr. Leslie regularly Headache 42152121 R51 Intermitte nt ZARCO of left aspect of forehead x 4-5 months, worse with BM, feels her heart beat with while having a BMPatient takes nortriptyl ine off and on for interstiti al cystitis, advised her to take this medication regularly and it may help prevent migraines/ ZARCO Irritable bowel syndrome with diarrhea 523714747 K58.0 hx of chronic abdominal pain, saw a GI specialist and doesnt get any answersHas diarrhea after all types of food, abdominal pain is relieved after having a BM States she has had an EGD and colonoscop y performed in the past, showed no abnormalit iesDenies fever, chills, nausea, vomiting, melena, hematochez ia, mucus in the stool, recent travel, or sick contacts.P ossibly IBS-D- Will start her on loperamide 2 mg TID before meals to see if this helps [id number] SHAUNA MENG (Adult Med) [facility] [place] [address] 08/21/2019 12:29:36 08/22/2019 09:51:15 Irritable bowel syndrome with diarrhea 367264180 K58.0 Patient has chronic abdominal pain, pressure, bloating, and diarrhea x years.She is currently following with a GI specialist in [facility] [place] [place]. She has completed multiple tests and all is coming back normal.She notes meat makes her GI symptoms worse. Admits that abdominal pain is relieved by having BM. States she has had an upper and lower scope performed in the past and nothing was found. States the new GI physician is thinking about re-scoping her. - continue to follow with GI Hyperlipidemia 75676615 E78.2 Takes atorvastat in 40 mg- will recheck lipid levels- will send refills to pharmacy Essential hypertension 01758401 I10 BP Today: unable to check today since phone visitc/w lisinopril 40 mg, metoprolol 50 mg, and hctz 25 mg Discussed DASH diet Advised 30 minutes of exercise minimum daily Advised tobacco, alcohol, caffeine all increase BP Advised goal for BP is <140/90 Contact office if BP is > 140/90 consistent ly Follows with [facility]Admits to mild dry cough already with lisinopril but it is tolerable - c/w medication s Allergic disposition 609 704045 T78.40XA Has seasonal/e nvironment al allergies, her nasal area is driving her crazy, feels completely stuffed, and cannot breathe through her nose. It is worse at night.Unsu re if there is something in her house causing the issue.Was using cetirizine , worked well in the beginning, but now requesting to try a different kind.- will try and switch to different oral anti-hista mine- consider allergy testing in the future Headache 58230768 R51 Intermitte nt ZARCO of left aspect of forehead x 8-9 months, describes the headaches as pressure like and can sometimes hear her heart beat in her ears during the episode.Shauna fayantoinette takes nortriptyl ine for interstiti al cystitis, at last visit I advised her to take this medication regularly to help treat/prev ent migraines/ ZARCO. She admits to mild improvemen t since taking medication daily.She had a CT scan of the head while hospitaliz ed at [facility], states it was normalHx of glasses/co ntacts. Admits to vision changes recently including blurry vision and issues with driving at night- will get records from [facility]- encouraged her to have eye exam completed ELLEN, if prescripti on is not correct, her vision may be playing a huge role on her headaches- if no issues with vision or ZARCO persist with new prescripti on, let me know and we can discuss new medication Chronic pain 31465611 G8 9.29 Hx of chronic pain, cervical and lumbar radiculopa thyUsed to live in [place], she was on multiple pain medication s while thereNo longer taking pain medication s here- continue with nortriptyl ine and gabapentin for the pain- May benefit from a pain management clinic in the future Daytime somnolence 70547 89551 00 R40.0 She has been experienci ng extreme fatigue for the past 2 years, she is worried that she sleeps more than she is awake.She told this to her cardiologi st, so cardiology ran a few tests including a stress test and Ca score test, both nonconcern ing.She has a family history of thyroid disease and is requesting to being tested.Adm its to insomnia some nights due to pain. Admits to history of snoring loudly at night.- will order TSH to look for thyroid disease- will refer her to sleep medicine for sleep study to rule out RUTHIE- if both normal, consider addressing her pain as the issue Adult [facility] examination 019613131 Z00.00 PHQ 2/9 was negative in office today (0 out of 27) [id number] SHAUNA MENG (Adult Med) [address] [place] [address] 11/19/2019 10:32:14 11/20/2019 09:17:04 Cervical spondylosis with myelopathy 33667011 M47.12 Hx of chronic pain, mostly due to cervical degenerati ve disc disease and radiculopa thy symptoms in her UE. She notes she also has CTS in her hands bilaterall y but no one will perform surgery because they believe most of her pain is coming from her neck.She used to live in [place] where she was on multiple pain medication s and had spinal injections . Since moving to [place], she has not been on anything besides OTC advil and gabapentin 300 mg qd.The pain is starting to majorly impact her life, she can not sleep at night and has a hard time doing her daily activities because of the pain.She saw orthopedic s recently who requested her to see neurosurge ry for the cervical spine disease.- will increase gabapentin from 300 mg qd to TID- will start cyclobenza ani at night- will send referral for pain management and neurosurge ry Increased frequency of urination 820270964 R35.0 History of chronic interstiti al cystitis, takes nortriptyl ine daily for this issue.Comp laining of urinary frequency x 1 week and is concerned for UTI.Denies dysuria, and hematuria. Urine dipstick showed trace LE- will check urine culture- will start on macrobid for now due to symptoms- recheck hgbA1c Psoriasis 4854613 L40.9 History of psoriasis on her R forearm for many years.Stat es she has tried a couple medication s for this per dermatolog y in [place] but had to stop due to HAs. She remembers the Kenalog shot working well in [place], it would usually give her 2-3 months of more clear skin.Saw a dermatolog ist a couple years ago, was prescribed triamcinol one cream which provides only mild benefit. Admits to pruritus of the skin.On PE: Entire extensor surface of right forearm with an erythemato us, raised patch of skin- kenalog injection administer ed today in office- continue with topical triamcinol one cream and moisturize r- consider getting her back in touch with dermatolog y Essential hypertension 12156202 I10 BP Today: 122/76c/w lisinopril 40 mg, metoprolol 50 mg, and hctz 25 mgComplain ing of dry cough at night over the past few month Discussed DASH diet Advised 30 minutes of exercise minimum daily Advised tobacco, alcohol, caffeine all increase BP Advised goal for BP is <140/90 Contact office if BP is > 140/90 consistent ly Follows with [facility]- c/w lisinopril and hctz- will switch lisinopril to losartan due to SE of dry cough- will check microalbum in Allergic disposition 609 094456 T78.40XA Has seasonal/e nvironment al allergies, her nasal area is driving her crazy, feels completely stuffed, and cannot breathe through her nose. It is worse at night.Unsu re if there is something in her house causing the issue.Was using cetirizine , worked well in the beginning, but now requesting to try a different kind, was unable to get the jalyn I prescribed the last visit- will try and switch to different oral anti-hista mine- consider allergy testing in the future Daytime somnolence 51628 30761 00 R40.0 She has been experienci ng extreme fatigue for the past 2 years, she is worried that she sleeps more than she is awake.She told this to her cardiologi st, so cardiology ran a few tests including a stress test and Ca score test, both nonconcern ing.She has a family history of thyroid disease, thyroid testing was normalAdmi ts to insomnia some nights due to pain.Admit s to history of snoring loudly at night, did not get sleep study completed due to insurance reasons- will try to treat pain better- will send referral elsewhere for sleep study to rule out RUTHIE [id number] SHAUNA MENG (Adult Med) [address] [place] [address] 02/25/2020 08:57:33 02/26/2020 14:25:32 Cervical spondylosis with myelopathy 98973102 M47.12 Hx of chronic pain, mostly due to cervical degenerati ve disc disease and radiculopa thy symptoms in her UE. She notes she also has CTS in her hands bilaterall y but no one will perform surgery because they believe most of her pain is coming from her neck.She used to live in [place] where she was on multiple pain medication s and had spinal injections . Since moving to [place], she has not been on anything besides OTC advil and gabapentin 300 mg qd.She saw orthopedic s recently who requested her to see neurosurge ry for cervical spine disease.Ga bapentin was increased at last OV. No improvemen Deol y following with pain management clinic, receiving steroid injections for her neck and [place]. Reports better control of pain and significan tly improved sleep.Uses muscle relaxer as needed.- c/w gabapentin 300 mg TID, and cyclobenza ani as needed- continue to follow with pain management Allergic disposition 195 073091 T78.40XA Has seasonal/e nvironment al allergies, her nasal area is driving her crazy, feels completely stuffed, and cannot breathe through her nose. It is worse at night.Unsu re if there is something in her house causing the issue.Was using cetirizine , worked well in the beginning, but wanted to try a different medication , was started on jalyn.Re ports continued rhinorrhea and congestion , but tolerable. - continue with jalyn- consider allergy testing in the future Daytime somnolence 25512 61196 00 R40.0 She has been experienci ng extreme fatigue for the past 2 years, she is worried that she sleeps more than she is awake.She told this to her cardiologi st, so cardiology ran a few tests including a stress test and Ca score test, both nonconcern ing.She has a family history of thyroid disease, thyroid testing was normalAdmi ts to insomnia some nights due to pain. Given pt's better control of pain, reports significan tly improved sleep.Admi ts to history of snoring loudly at night, did not get sleep study completed due to improvemen t in sleep from pain medication - will hold off on pulmonolog y referral as of now given pts improved sx Hyperlipidemia 68590939 E78.2 Takes atorvastat in 40 mgLipids last checked on 09/04/2019 showed total 134, LDL 69, HDL 41, triglyceri stefani 163.- will send refills to pharmacy Impaired g lucose tolerance 5202166 R73.02 At last OV complainin g of urinary frequency. UA showed trace LE and she was tx with macrobid. HgbA1c was 5.7. Given her FH of diabetes, pt called an endocrinol ogist and is currently following with them. She has changed her diet to be minimal-ca rb free, and is interested in discussing dieting plans further. Reports increased energy. Checking blood sugars daily. - continue to follow with endocrinol ogy - will place dietitian referral for further discussion on diet plans [id number] SHAUNA LOBATO ([facility]) [address] [place] [address] 05/27/2020 09:53:44 06/10/2020 10:49:15 Gynecologic examination 18223816 Z01.419 -clinical breast & pelvic examinatio ns completed today, unremarkab le -cervical cancer screening UTD: last Pap 03/08/2017, negative. -mamm UTD: last 12/24/19, BIRADS1. -Educated osteoporos is prevention including calcium rich diet, weight bearing exercise. Will start supplement . -RTC in 1yr Pain in pelvis 59884398 R10.2 Appears chronic. No new bleeding reported. Suspect related to IC. 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 Chronic in terstitial cystitis 743666437 N30.10 Patient reports chronic pain due to interstiti al cystitis, controlled with nortryptyl ine. Referred to urology. Irritable bowel syndrome 63543852 K58.9 Patient is under care of GI. [id number] SHAUNA MENG (Adult Med) [facility] [place] [address] 08/10/2020 08:30:29 08/11/2020 10:01:00 Cervical spondylosis with myelopathy 83555191 M47.12 Hx of chronic pain, mostly due to cervical degenerati ve disc disease and radiculopa thy symptoms in her UE. She notes she also has CTS in her hands bilaterall y but no one will perform surgery because they believe most of her pain is coming from her neck. She is now following with pain management now, on chronic pain medication s and receiving injections into her spine. Notes pain medication and injections do not seem to be helping her pain much, injections only provide her with very temporary relief. She has been having worsening low back pain after slipping and falling on the ice this past winter, she completed an MRI of her lumbar spine yesterday. No longer taking gabapentin , did not feel like it helped her pain. She uses the muscle relaxer as needed. Has not seen neurosurge ry yet but would like to get another referral since she is getting desperate due to the pain. - c/w cyclobenza ani as needed - continue to follow with pain management - new neurosurge ry referral placed Impaired g lucose tolerance 1468200 R73.02 At last OV complainin g of urinary frequency. UA showed trace LE and she was tx with macrobid. HgbA1c was 5.7. Given her FH of diabetes, pt called an endocrinol ogist (Dr. Diane) and is currently following with them. She has changed her diet to be minimal-ca rb free, and is interested in discussing dieting plans further. Reports increased energy. Checking blood sugars daily. - continue to follow with endocrinol ogy - f/u in 6 months for repeat labs Hyperlipidemia 20399430 E78.2 Takes atorvastat in 40 mg Lipids last checked on 09/04/2019 showed total 134, LDL 69, HDL 41, triglyceri stefani 163. - will send refills to pharmacy, due for labs at next visit Allergic disposition 236 104626 T78.40XA Has seasonal/e nvironment al allergies, her nasal area is driving her crazy, feels completely stuffed, and cannot breathe through her nose. It is worse at night. Unsure if there is something in her house causing the issue. Was using cetirizine , worked well in the beginning, but wanted to try a different medication , was started on jalyn. Reports continued rhinorrhea and congestion , but tolerable. - continue with jalyn - consider allergy testing in the future Daytime somnolence 37924 81901 00 R40.0 She has been experienci ng extreme fatigue for the past 2 years, she is worried that she sleeps more than she is awake. She told this to her cardiologi st, so cardiology ran a few tests including a stress test and Ca score test, both nonconcern ing. She has a family history of thyroid disease, thyroid testing was normal Admits to insomnia some nights due to pain. Given pt's better control of pain, reports significan tly improved sleep. Admits to history of snoring loudly at night, did not get sleep study completed due to improvemen t in sleep from pain medication - wants to continue to hold off on referral for sleep study for now since decreased pain is helping and very busy with current physicians Essential hypertension [id number] I10 BP Today: unable to check today c/w losartan 50 mg, metoprolol 50 mg, and hctz 25 mg Stopped lisinopril due to dry cough Follows with [facility] - c/w medication s as prescribed and following with cardiology [id number] SHAUNA MENG (Adult Med) [address] [place] [phone] 0 01/19/2021 11:38:51 01/21/2021 12:19:42 Cervical spondylosis with myelopathy 86946427 M47.12 Hx of chronic pain, mostly due to cervical degenerati ve disc disease and radiculopa thy symptoms in her UE. She notes she also has CTS in her hands bilaterall y but no one will perform surgery because they believe most of her pain is coming from her neck. She is now following with pain management now, on chronic pain medication s and receiving injections into her spine. Notes pain medication and injections do not seem to be helping her pain much, injections only provide her with very temporary relief. She has been having worsening low back pain after slipping and falling on the ice this past winter, she completed an MRI of her lumbar spine yesterday. No longer taking gabapentin , did not feel like it helped her pain. She uses the muscle relaxer as needed. - c/w cyclobenza ani as needed - continue to follow with pain management Impaired g lucose tolerance 7497996 R73.02 HgbA1c was 5.6 12/2020 (checked by Endo) Given her FH of diabetes, pt called an endocrinol ogist (Dr. Diane) and is currently following with them. She has changed her diet to be minimal-ca rb free, and is interested in discussing dieting plans further. Reports increased energy. Checking blood sugars daily. - continue to follow with endocrinol ogy - f/u in 6 months for repeat labs Hyperlipidemia 34282063 E78.2 Takes atorvastat in 40 mg Lipids last checked on 11/2020 by endocrinol ognishant showed normal lipids, with slightly low HDL at 48. - Refill atorvastat in- Provided pt with education about food to increase HDL levels. Daytime somnolence 97705 [id number] 00 R40.0 Pt also endorses fatigue. States she has ongoing increased fatigue for the last few years. States she feels her mood is not great due to her chronic pain which may be contributi ng to her fatigue. She states her activity is also decreased over recent years due to her pain. Denies any fever, chills, unintended weight loss, night sweats, palpitatio ns, dizziness, or lightheade dness. - Was previously considerin g sleep study but decided to hold off. - PE: pulse rate bradycardi c at 55 bpm today.Plan :- Given fatigue in setting of bradycardi a, will decrease metoprolol from 100mg to 75 mg daily to see if this is cause of the fatigue. Essential hypertension [id number] I10 BP Today: 118/76, HR 55-60 Current medication s: losartan 50 mg, metoprolol 100 mg, and hctz 25 mg Stopped lisinopril due to dry coughPulse rate low, running in 50s today. Will drop metoprolol to 75mg given bradycardi a and fatigue. Follows with [facility] - c/w losartan 50 mg and HCTZ 25mg as prescribed and following with cardiology - Decrease metoprolol to 75mg given bradycardi a and fatigue. Otalgia 57273551 H92.01 Only complaint today is R ear fullness. She notes approximat indy 1 week ago while getting an MRI, the ear plug fell out. Immediatel y after the MRI ended, she noticed R ear pressure. She has tried to pop her ears with no relief. She has not taken any medication for the pressure. Denies any fever, chills, ear pain, drainage, or hearing loss. Denies any headache or vision loss. - Will try cetirizine 10 mg to decrease fluid. Take daily for next 2 weeks.- Instructed pt to follow up if ear pressure not improved in 2 weeks. [id number] SHAUNA MENG [facility] (Adult Med) [address] [place] [address] [phone] 09/06/2021 11:33:51 09/07/2021 21:29:17 Itching of skin 950675747 L29.9 New pruritic rash on bilateral arms, chest and back x 1 week- CBC, CMP, TSH, CRP, ESR, and iron studies to evaluate for secondary cause of pruritus.- Hydroxyzin e to control itching. Zyrtec instead of Hydroxyzin e if too drowsy. PRN Benadryl if increased itching at night.- Topical Bacitracin for skin lesions. Topical Permethrin for possible mites. Rx Bactrim for further coverage of apparent cellulitis from skin excoriatio ns. Hyperlipidemia 62054495 E78.2 Takes atorvastat in 40 mg Lipids last checked on 11/2020 by endocrinol erwin showed normal lipids, with slightly low HDL at 48.- Continue Atorvastat in 40mg QD. Essential hypertension 60419817 I10 BP Today: 118/74, HR 59 Current medication s: losartan 50 mg, metoprolol 75 mg, and hctz 25 mgPulse rate low, running in 50s today. Continue to monitor.Fo llows with [facility] - c/w losartan 50 mg and HCTZ 25mg as prescribed and following with cardiology - may need to back off Metoprolol if HR continues to be low Adult heal th examination 600500518 Z00.00 12/15: Routine labs - due for TSH, lipid panel, HgbA1c, Vit D Onychomycosis 895568456 B35.1 1st digit of each foot primarily affected.- Check CMP for LFTs. Rx Oral Terbinafin e if LFTs WNL. Cat scratch injury 47940 5009 T14.8XXA H/o of cat scratch 1-2 weeks ago before cutaneous manifestat ions started. Itch and lesions have progressed and worsened since time of cat scratch. Complainin g of joint pain in multiple joint pains.No LAD appreciate d on exam today- Rx Bactrim to cover for potential involvemen t of Bartonella . Vitamin D deficiency 347 98169 E55.9 Hx of vitamin D def., will repeat today History of iron deficiency 779168747 Z86.39 Prior history of iron def. anemia, now complainin g of pruritic skin and overall fatigue [id number] SHAUNA LOBATO ([facility]) [address] [place] [address] [phone] 0 02/10/2022 10:22:20 02/23/2022 15:08:32 Gynecologic examination 34547921 Z01.419 Normal gynecologi c exam today.Cerv ical cancer screening: Last Pap 03/08/2017 NILM/HPVne g, updated todayBreas t cancer screening: Last mammo 12/27/2020, BIRADS 1Colonosco py: 2017, due [address] Nielson/nolan xercise: Counseled regarding importance of physical activity, healthy diet and appropriat e calcium intake.RTC in 1yr Screening for malignant neoplasm of breast 973335408 Z12.31 Annual screening order provided Obesity 215071828 E66.9 BMI 33.4. Recommende d daily exercise with a goal of 150 min/week of moderate-s trenuous activity and a balanced diet with an emphasis on fruits, vegetables , whole grains, legumes, lean protein, and mono/polyu nsaturated fats. Screening for osteoporosis 642210663 Z13.820 Early screening due to smoking status. Smoker 21487019 F17.200 Counseled on smoking cessation. She is going to try to quit after the new year. [id number] SHAUNA MENG (Adult Med) [address] [place] [address] [phone] 03/17/2022 14:27:33 03/21/2022 10:41:24 Hoarse 19498868 R49.0 Complainin g of intermitte nt hoarseness of her voice, sore throat (L>R), and left anterior neck pain x 1 month. She has a history of chronic sinus issues so her nasal congestion is not new. No history of recent illness at the time she started having these symptoms. History of smoking.St rep negative in the office today- completed additional swabs for possible cause- possible candidiasi s infection, start nystatin- will call with results Eruption 657881473 R21 Hx of multiple skin issues including atopic dermatitis , plaque psoriasis on R elbow (resolved after steroid injection) , new fine bumps on dorsal aspect of hands bilaterall y that may possibly be from dyshidroti c eczema, multiple scars on arms, painful lesion on her index finger, pruritis of the ears and ear canals that is likely eczema.She saw dermatolog y once, started on Otezla which caused her severe headaches so she stopped taking and never returned. Has history of severe fatigue and joint pain in multiple joints.- due to multiple skin conditions , will refer to dermatolog y again Chronic in terstitial cystitis 971035876 N30.10 Hx of IC for many years, states the nortriptyl ine has been a major helps, takes it in the AMAdmits to severe fatigue during the day, admits to continued nocturia at night- discussed trying to switch IC medication to night since it has a SE of drowsiness - discussed medication for OAB but not interested at this time, feels like she takes too many medication s Psoriasis 3891630 L40.9 H/o of psoriasis, left plaque resolved after steroid injection after our last visitExter nal ears with possible psoriasis vs atopic dermatitis Concern for possible psoriatic arthritis- continue with topical triamcinol one cream and moisturize r for the skin of the ear- derm referral given Polyarthropathy 23810426 M13.0 Hx of psoriasis, polyarthro urbano, severe fatigue- concern for possible psoriatic arthritis, discussed this with patient today- c/w Dr. Espinoza for pain medicine, will try to get xray records from their office Essential hypertension 75837193 I10 BP Today: 118/74, HR 59 Current medication s: losartan 50 mg, metoprolol 100 mg, and hctz 25 mg Follows with [facility] - c/w medication s Hyperlipidemia 90188130 E78.2 Takes atorvastat in 40 mg Lipids last checked on 11/2020 by endocrinol ogy showed normal lipids, with slightly low HDL at 48.- Continue Atorvastat in 40mg QD. Otitis externa 7248545 H 60.93 EAC erythemato us bilaterall y, sores noted in the R EAC likely from scratching - start drops in bilateral ears as needed Leukocytosis 305947087 D 72.829 Prior labs showed increased WBC- possibly due to underlying skin conditions , possible psoriatic arthritis- will repeat labs with additional orders Impaired g lucose tolerance 4214423 R73.02 HgbA1c was 5.6 12/2020 (checked by Endo) Given her FH of diabetes, pt called an endocrinol ogist (Dr. Diane) and is currently following with them. She has changed her diet to be minimal-ca rb free, and is interested in discussing dieting plans further. Reports increased energy. Checking blood sugars daily. - will recheck today Fatigue 35514643 R53.83 Complainin g of severe daytime fatigue over the last year, sleeps most of the day and has no energy- will repeat labs- discussed medication s she is taking during the day which could be making her symptoms worse- may be underlying rheumatolo gi issue- sleep study coming up with cardio [id number] SHAUNA MENG (Adult Med) [address] [place] [address] [phone] 04/26/2022 14:29:27 05/02/2022 10:11:14 Obesity 049689408 E66.9 BMI: 33.5Advise d decreased portion sizes, good food choices, limited eating out or fast food and eliminate soda and juice from diet. Advised physical activity daily and offered encouragem ent to continue with positive changes made so far. Psoriatic arthritis 1563 18227 L40.50 - hx of psoriasis, + hx of joint pain, labs showed + hla-b27Con cern for PA- provided referral at last visit, has not heard from rheumatolo , Provided referral to patient again today, call to schedule appointmen t Eruption [id number] R21 Hx of multiple skin issues including atopic dermatitis , plaque psoriasis on R elbow (resolved after steroid injection) , new fine bumps on dorsal aspect of hands bilaterall y that may possibly be from dyshidroti c eczema, multiple scars on arms, painful lesion on her index finger, pruritis of the ears and ear canals that is likely eczema.She saw dermatolog y once, started on Otezla which caused her severe headaches so she stopped taking and never returned. Has history of severe fatigue and joint pain in multiple joints.- due to multiple skin conditions , derm referral given at last visit, provided her with contact info today Psoriasis 8816546 L40.9 H/o of psoriasis, left plaque resolved after steroid injection after our last visitExter nal ears with possible psoriasis vs atopic dermatitis Concern for possible psoriatic arthritis- continue with topical triamcinol one cream and moisturize r for the skin- derm referral given Polyarthropathy 96855998 M13.0 Hx of psoriasis, polyarthro urbano, severe fatigue- concern for possible psoriatic arthritis, discussed this with patient today- c/w Dr. Espinoza for pain medicine, will try to get xray records from their office Fatigue 89557893 R53.83 Complainin g of severe daytime fatigue over the last year, sleeps most of the day and has no energy- will repeat labs- discussed medication s she is taking during the day which could be making her symptoms worse- may be underlying rheumatolo gic issue- sleep study coming up with cardio Candidiasis of mouth 797 87084 B37.0 Complainin g of intermitte nt hoarseness of her voice, sore throat (L>R), dry mouth, bad breath and left anterior neck pain x 3 month.Hist ory of smoking.Sw ab showed + yeast, no improvemen t with oral nystatin wash- start fluconazol e 150 mg daily x 14 days, hold pain medication while taking Gastroesop hageal reflux disease without esophagitis 054685748 K21.9 Patient has acid reflux at night, takes occasional ly pepcid, which helps.Hx of hiatal hernia 1.Avoid lying flat 3 to 4 hours after eating or drinking.2 .Elevate the head of bed 4-8 inches.3.A void tight clothing around the waist.4.De crease dietary fat intake.5. Avoid acidic foods (citrus and tomato-bas ed products), alcohol, caffeinate d beverages, chocolate, onions, garlic, salt, and peppermint oil.6. Avoid large meals.7. Avoid drinking coffee, or carbonated beverages. 8. Weight loss can help with symptoms, try to diet and exercise.9 .Stop smoking. -take famotidine 20mg BID x 1 month for acute symptoms Subclinica l hypothyroidism 90476887 E02 Prior labs showed subclinica l hypothyroi dism, family history of thyroid disease-TS H goal 0.5 4 .1 mU/L-Check TSH , free T4-check triiodothy yuliya , free T3-check thyroid antibobodi es Depression screening 171 362657 Z13.31 PHQ 2 was negative in office today (0 out of 27) [id number] SHAUNA MENG [facility] (Adult Med) [address] [place] [address] 08/25/2022 10:01:15 08/28/2022 13:41:27 Psoriatic arthritis 483487021 L40.50 - hx of psoriasis, + hx of joint pain, labs showed + hla-b27Con cern for PA- provided referral at last visit, has visit scheduled with them 09/2022 Eruption 372216674 R21 Hx of multiple skin issues including atopic dermatitis , plaque psoriasis on R elbow (resolved after steroid injection) , new fine bumps on dorsal aspect of hands bilaterall y that may possibly be from dyshidroti c eczema, multiple scars on arms, painful lesion on her index finger, pruritis of the ears and ear canals that is likely eczema.She saw dermatolog y once, started on Otezla which caused her severe headaches so she stopped taking and never returned. Has history of severe fatigue and joint pain in multiple joints.- due to multiple skin conditions , derm referral given at last visit, scheduled visit next month- increase hydroxyzin e to 2 tablets to see if that helps with pruritus, can cause drowsiness - restart topical triamcinol one cream on forearms Psoriasis 8883727 L40.9 H/o of psoriasis, left plaque resolved after steroid injection after our last visitExter nal ears with possible psoriasis vs atopic dermatitis Concern for possible psoriatic arthritis- continue with topical triamcinol one cream and moisturize r for the skin- keep upcoming apt with derm Polyarthropathy 39514064 M13.0 Hx of psoriasis, polyarthro urbano, severe fatigue- concern for possible psoriatic arthritis, discussed this with patient today- c/w Dr. Espinoza for pain medicine, will try to get xray records from their office Depression screening 171 386212 Z13.31 PHQ 2/9 was negative in office today (0 out of 27) Obesity 957598929 E66.9 BMI: 32.5Advise d decreased portion sizes, good food choices, limited eating out or fast food and eliminate soda and juice from diet. Advised physical activity daily and offered encouragem ent to continue with positive changes made so far. Migraine 29704706 G43.90 9 Struggling with frequent headaches currently, admits to having unilateral headaches since teenage years. They are unilateral , sharp, and throbbing, that respond to ibuprofen. Currently on nortriptyl ine daily for bladder control. She did have a Ubrelvy prescripti on from a pain control provider but it is now having difficulty with insurance. Her father had similar symptoms and also in his 60s from a brain aneurysm.N o changes in vision outside of chronic cataracts or nausea. Follows with eye doctor and due for her next apt.Has spondylosi s of c-spine- likely multi-fact orial- get in to see eye doctor- work on treating chronic sinus issues- consider triptan or nurtec if possible for acute migraines- consider imaging of brain and referral to neurology Chronic sinusitis 223062 00 J32.9 Struggling with headaches since childhood yearsState s chronic R sided sinus pressure, never fully able to breath out of that nostril, worse at night. Flonase used to help in the past- may be playing role in chronic headaches- start abx to cover for chronic sinusitis- start flonase, c/w daily anti-hista mine [id number] SHAUNA MENG (Adult Med) [address] [place] [address] 12/21/2022 11:49:51 12/22/2022 09:23:02 Obesity 366439587 E66.9 BMI: 34.1Advise d decreased portion sizes, good food choices, limited eating out or fast food and eliminate soda and juice from diet. Advised physical activity daily and offered encouragem ent to continue with positive changes made so far. Acute exac erbation of chronic obstructive pulmonary disease 734478982 J44.1 62 year old female with a history of COPD and HTN presents today for sick symptoms. Complainin g of productive cough with green mucus, increased SOB, nasal congestion , white/gree n rhinorrhea and left ear pain x 14 days. Home COVID test came back negative.- rapid test here negative for influenza and COVID- start abx to cover for COPD exacerbati on- avoid steroids per patients request due to her hx of HTN- Drink lots of fluids, whatever you like except for alcoholic beverages. - Run a cool-mist humidifier in your room at night.- For sore throat, gargle warm salt water.- Get extra rest and do not over-exert yourself. Acute otitis media 53547 03 H66.92 Complainin g of nasal congestion , white/gree n rhinorrhea and left ear pain x 14 days.On PE: Left TM erythemato usHas PCN allergy- start z-pack for ear infection and to help cover for mild COPD exacerbati on Hyperlipidemia 68113246 E78.2 Takes atorvastat in 40 mg- Continue Atorvastat in 40mg QD. Vitamin D below reference range 863447893 E55.9 Essential hypertension 69159532 I10 BP Today: 122/70 Current medication s: losartan 50 mg, metoprolol 100 mg, and hctz 25 mg Follows with [facility] - c/w medication s Chronic in terstitial cystitis 901223732 N30.10 Hx of IC for many years, states the nortriptyl ine has been a major helps, takes it in the AMAdmits to severe fatigue during the day, admits to continued nocturia at night- discussed trying to switch IC medication to night since it has a SE of drowsiness - discussed medication for OAB but not interested at this time, feels like she takes too many medication s [id number] MD Raquel Berrios (Adult Med) [address] [place] [address] 04/25/2023 11:43:12 04/26/2023 15:38:29 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 2 Hyperlipidemia 74995066 E78.2 Pt requesting blood work today Impaired g lucose tolerance 4421034 R73.02 [id number] MD Raquel Berrios (Adult Med) [address] [place] [address] [phone] 0 05/24/2023 10:52:19 05/25/2023 14:57:13 Body mass index 30+ - obesity 653589418 Z68.34 BMI 34.6 Depression screening 171 569692 Z13.31 PHQ9- {{Negative Positive Mild* Mode rate Sever e}} (5 out of 27) Mental hea lth screening 760938194 Z13.39 GAD7- {{Negative * Positive Mild Mode rate Sever e}} (0 out of 21) Leukoplakia 514844378 K1 3.21 Patient is f/u with ENT, last OV on 05/02/23- f/u in 4 weeksKeep appointmen t with ENT Fatigue 92812919 R53.83 Labs todayWill call patient with resultsC/w vit D Impaired g lucose tolerance 8922138 R73.02 Pt is watching what she eats and is worried about V3QOmre not want to start metformin d/t research she has doneWill refer to nutritioni [id number] MD Raquel Berrios (Adult Med) [address] [place] [phone] 07/25/2023 11:25:55 07/27/2023 14:49:13 Psoriasis 6566135 L40.9 Depression screening 171 904285 Z13.31 PHQ9- {{Negative Positive Mild* Mode rate Sever e}} (5 out of 27) Mental hea lth screening 434865742 Z13.39 GAD7- {{Negative * Positive Mild Mode rate Sever e}} (0 out of 21) Body mass index 30+ - obesity 149587979 Z68.35 BMI 35.0Advise d decreased portion sizes, good food choices, limited eating out or fast food and eliminate soda and juice from diet. Advised physical activity daily and offered encouragem ent to continue with positive changes made so far. [id number] Celeste Leonard MD [facility] (Adult Med) [address] [place] [phone] 09/19/2023 16:01:00 09/21/2023 08:37:02 Easy bruising 858303396 R58 Labs today Itching of skin 66784459 0 L29.9 Start cetirizine 10mg dailyDiscu ssed moisturizi ng skin, showering with luke warm water, using emollients Advised patient to use OTC anti itch cream to help with itching Weight gain 2973687 R63. 5 Labs todayDiscu ssed with patient increasing physical activity as tolerated Obesity 179265053 E66.8 BMI 36.1 Advised decreased portion sizes, good food choices, limited eating out or fast food and eliminate soda and juice from diet. Advised physical activity daily and offered encouragem ent to continue with positive changes made so far. [id number] Celeste Leonard MD [facility] (Adult Med) [address] [place] [address] [phone] 10/01/2023 15:44:28 10/03/2023 22:21:22 Type 2 diabetes mellitus 81598175 E11.9 Last A1C:6.7 (09/20/23)G oal A1C less than:{{7.0 %* 8.0%}}C urrent Therapy:No neStatin:A torvastati n 40mgACE/AR B:Losartan 50mgFoot Exam:{{com pleted in the past 12 months-neg ative comp leted in the past 12 months-pos itive comp leted in the past 12 months- result unknown du e*}}Nephro urbano Screening: {{complete d in the past 12 months- negative c ompleted in the past 12 months- positive d ue*}}Pneum ovax 23:{{UTD D eclined No t given*}}Ey e Exam:{{com pleted in the last 12 months- negative c ompleted in the last 12 months- positive c ompleted per patient report due - recommende d annual dilated eye exam*}} referral given todayPatie nt Education: healthy diet:yesex ercise:yes weight loss:yesfo ot care:yesco mplication s of uncontroll ed diabetes:y esmedicati on compliance :yes Keep a food diaryFollo w a healthy heart low fat low cholestero l dietExerci se 50-60 minutes 5-6 times per weekIncrea se water intakeStop concentrat ed sugarsTake your diabetes medication dailyCheck blood sugars fasting and post prandial --keep a log--bring to next appointmen tStop concentrat ed sugars--fo llow 1500 meal planExerci se 50-60 minutes daily on most daysCheck your feet for sores, cuts, etc.See eye doctor once a yearsee dentist every 6 monthsNext Visit: {{1 2 3* 4 5 6 7 8 9 10 11 12} } {{week(s) month(s)*} }Start Metformin 500mg ER dailyNew diabetic packet given todayAnswe red all patient's questions and concerns Obesity 271725930 E66.8 BMI 35.9 Advised decreased portion sizes, good food choices, limited eating out or fast food and eliminate soda and juice from diet. Advised physical activity daily and offered encouragem ent to continue with positive changes made so far. [id number] MD [facility] [address] [place] [address] [phone] 12/31/2023 10:52:53 12/31/2023 13:49:44 Right upper quadrant pain [id number] R10.11 Advised patient to go to Emergency room after PE.Abdomin al distension and RUQ pain on PE.Patient signed AMA, did not want to go via EMS even though we highly recommende d it. Patient states she would drive home, which was one block away, and her was going to drive her to the hospital.I nstructed pt to schedule f/u after her ER visit Obesity 629888250 E66.9 BMI 35.0 [id number] MD [facility] [address] [place] [address] [phone] 01/21/2024 10:23:32 01/22/2024 15:04:53 Type 2 diabetes mellitus 85333895 E11.9 Last A1C:Today 5.8 (01/21/24) , 6.7 (09/20/23)G oal A1C less than:{{7.0 %* 8.0%}}C urrent Therapy:No neStatin:A torvastati n 40mgACE/AR B:Losartan 50mgFoot Exam:Compl eted today 01/21/24Ne phropathy Screening: {{complete d in the past 12 months- negative c ompleted in the past 12 months- positive d ue*}}Pneum ovax 23:{{UTD D eclined No t given*}}Ey e Exam:{{com pleted in the last 12 months- negative c ompleted in the last 12 months- positive c ompleted per patient report due - recommende d annual dilated eye exam*}} patient give referral at last visit but has been unable to schedule. Pt to schedule and call if a new referral is needed.Pat ient Education: healthy diet:yesex ercise:yes weight loss:yesfo ot care:yesco mplication s of uncontroll ed diabetes:y esmedicati on compliance :yes Keep a food diaryFollo w a healthy heart low fat low cholestero l dietExerci se 50-60 minutes 5-6 times per weekIncrea se water intakeStop concentrat ed sugarsTake your diabetes medication dailyCheck blood sugars fasting and post prandial --keep a log--bring to next appointmen tStop concentrat ed sugars--fo llow 1500 meal planExerci se 50-60 minutes daily on most daysCheck your feet for sores, cuts, etc.See eye doctor once a yearsee dentist every 6 monthsNext Visit: {{1 2 3 4 5 6* 7 8 9 10 11 12} } {{week(s) month(s)*} }Continue Metformin 500mg ER dailyAnswe red all patient's questions and concerns Hyperlipidemia 67700006 E78.2 Refilled atorvastat in 40mg 1 daily at bedtime Essential hypertension 06099034 I10 BP today: 120/78BP Goal: {{Less than 140/90* Le ss than 150/90}}BP Controlled : {{yes* no} }Healthy Weight: {{4'10= 91-118 lbs 4'11= 94-123 lbs 5'= 97-127 lbs 5'1= 100-131 lbs 5'2= 104-135 5' 3= 107-140 lbs 5'4= 110-144 lbs* 5'5= 115-149 lbs 5'6= 118-154 lbs 5'7= 121-158 lbs 5'8= 125-163 lbs 5'9= 128-168 lbs 5'10= 132-173 lbs 5'11= 136-178 lbs 6'= 140-183 lbs 6'1= 144-188 lbs 6'2= 148-193 lbs 6'3= 152-199 lbs 6'4= 156-204 lbs}}Discu ssed: Low sodium balanced diet, moderate exercise at least 3-4 times per week for an average of 40 minutes, limiting alcohol to 1 drink per day (F) or 2 drinks per day (M), and smoking cessation if currently smoking. Next Visit: {{1 2 3 4 5 6* 7 8 9 10 11 12} }{{week(s) month(s)* }}C/w metoprolol 100mgC/w losartan 50mg Obesity 541028609 E66.9 BMI 34.5 Depression screening 171 884172 Z13.31 PHQ9- {{Negative * Positive Mild Mode rate Sever e}} (3 out of 27) Mental hea lt screening 598105243 Z13.39 GAD7- {{Negative * Positive Mild Mode rate Sever e}} (0 out of 21) [id number] Celeste Leonard MD [facility] (Adult Med) [address] [place] [address] [phone] 05/12/2024 15:15:43 05/22/2024 12:11:38 Type 2 diabetes mellitus 45157426 E11.9 Last A1C:Today 6.0 (05/12/24), 5.8 (01/21/24) , 6.7 (09/20/23)G oal A1C less than:{{7.0 %* 8.0%}}C urrent Therapy:No neStatin:A torvastati n 40mgACE/AR B:Losartan 50mgFoot Exam:Compl eted 01/21/24Ne phropathy Screening: {{complete d in the past 12 months- negative c ompleted in the past 12 months- positive d ue*}}Pneum ovax 23:Prevnar 20 05/12/24Eye Exam:{{com pleted in the last 12 months- negative c ompleted in the last 12 months- positive c ompleted per patient report due - recommende d annual dilated eye exam*}} REBECCA signed todayPatie nt Education: healthy diet:yesex ercise:yes weight loss:yesfo ot care:yesco mplication s of uncontroll ed diabetes:y esmedicati on compliance :yes Keep a food diaryFollo w a healthy heart low fat low cholestero l dietExerci se 50-60 minutes 5-6 times per weekIncrea se water intakeStop concentrat ed sugarsTake your diabetes medication dailyCheck blood sugars fasting and post prandial --keep a log--bring to next appointmen tStop concentrat ed sugars--fo llow 1500 meal planExerci se 50-60 minutes daily on most daysCheck your feet for sores, cuts, etc.See eye doctor once a yearsee dentist every 6 monthsNext Visit: {{1 2 3 4 5 6* 7 8 9 10 11 12} } {{week(s) month(s)*} }Continue Metformin 500mg ER dailyStart Ozempic 0.25mg weeklyAnsw ered all patient's questions and concerns Hyperlipidemia 01469179 E78.2 Refilled atorvastat in 40mg 1 daily at bedtime Essential hypertension 95639020 I10 BP today: 120/72BP Goal: {{Less than 140/90* Le ss than 150/90}}BP Controlled : {{yes* no} }Healthy Weight: {{4'10= 91-118 lbs 4'11= 94-123 lbs 5'= 97-127 lbs 5'1= 100-131 lbs 5'2= 104-135 5' 3= 107-140 lbs 5'4= 110-144 lbs* 5'5= 115-149 lbs 5'6= 118-154 lbs 5'7= 121-158 lbs 5'8= 125-163 lbs 5'9= 128-168 lbs 5'10= 132-173 lbs 5'11= 136-178 lbs 6'= 140-183 lbs 6'1= 144-188 lbs 6'2= 148-193 lbs 6'3= 152-199 lbs 6'4= 156-204 lbs}}Discu ssed: Low sodium balanced diet, moderate exercise at least 3-4 times per week for an average of 40 minutes, limiting alcohol to 1 drink per day (F) or 2 drinks per day (M), and smoking cessation if currently smoking. Next Visit: {{1 2 3 4 5 6* 7 8 9 10 11 12} }{{week(s) month(s)* }}C/w metoprolol 100mgC/w losartan 50mgc/w hctz Obesity 572698037 E66.81 2 BMI 35.2 Depression screening 171 263938 Z13.31 PHQ9- {{Negative Positive Mild* Mode rate Sever e}} (8 out of 27) Mental hea lth screening 753230056 Z13.39 GAD7- {{Negative * Positive Mild Mode rate Sever e}} (0 out of 21) Toothache 84239049 K08.8 9 Chronic in terstitial cystitis 146155937 N30.10 Health Concerns Section Related Observation LastModified by Organization Detai ls LastModified Time None Recorded Concern Status LastModified by Organization Details LastModified Time None Recorded Advance Directives Directive N: Payers Encounter Date Sequence Insurance Name Policy Number Policy Sanchez Covered Member ID Sanchez Member ID Guarantor Name 09/19/2023 1 R [id number] Artem More [id number] Mireya Steenerson 09/19/2023 2 [place] Mireya Valdovinos Steenerson [id number] Mireya Steenerson 10/01/2023 1 UMR [id number] Artem More [id number] Mireya Steenerson 10/01/2023 2 [place] Mireya R Steenerson [id number] Mireya Steenerson 12/31/2023 1 R [id number] Artem More [id number] Mireya More 12/31/2023 2 [place] Mireya More [id number] Mireya More 01/21/2024 1 R [id number] Artem More [id number] Mireya More 01/21/2024 2 [place] Mireya More [id number] Mireya More 05/12/2024 1 R [id number] Artem More [id number] Mireya More 05/12/2024 2 [place] Mireya More [id number] Mireya More Notes Date Note Type Note Provider Name and Address Organization Details Recorded Time 09/19/2023 text/html 63 y/o F here c/o dry, itching, easy bruising skin. States she went to see specialist and was told to f/u PCP about skin condition. PT states she has been getting blood spots all over her arms and chest and they get real itchy that they drive her crazy. She gets some on her feet as well. She has had this before and told previous provider who treated her with hydroxyzine in 2021. Pt states she has been taking it sometimes to this day. Pt is also c/o gaining a lot of weight even though she feels like she does not eat so much. Denies SOB, CP, ZARCO, N/V/D. LILLIE QUIÑONES PA-C Attn: Accounting[address] [place], [address], [facility] 09/19/2023 17:03:23 10/01/2023 text/html 63 y/o F here for lab results.Pt states she saw her lab results online. She does not understand why her A1C went up if she is watching what she eats. Does admit to eating a lot of bread and skipping meals often. Denies SOB, CP, Zarco, N/V/D LILLIE QUIÑONES PA-C Attn: Accounting[address] [place], [address], [facility] 10/01/2023 16:58:40 12/31/2023 text/html 63 y.o. Caucasia n female who presents for right flank pain. Pt states that she has had a productive cough for the past 2 weeks, with no fevers or chills. Yesterday, she began developing a sharp 8/10 abdominal pain to the right upper quadrant that is radiating to the back. Tried heat application and hydrocodone ,that she receives from pain management, but was unable to resolve the pain. Reports increased flatulence, abdominal distension, and difficulty sleeping and walking secondary to the pain. Denies ZARCO, CP, N/V/D at this time. LILLIE QUIÑONES PA-C Attn: Accounting, [address] [facility], [place], [address], [facility] 12/31/2023 14:17:51 01/21/2024 text/html Diabetes F/URepo rted bypatient.Labs:last A1C result: 6.7 Context:checking feet regularly Associated Symptoms:no weight gain; no weight loss; no dizziness; no sweats; no headaches; no confusion; no increased thirst; no increased appetite; no increased urination; no blurred vision; no numbness of feet;calluses on feet A 63 y.o F with a h/o DM and HTN presents for a f/u on DM and ER visit. Pt states she went to the ER on 01/07/24 for abdominal pain. They thought there might be pancreatitis and the pt then followed up with a GI specialist. The GI doctor thinks she may have gastritis and did an upper endoscopy with results still pending, and she is scheduled for a colonoscopy tomorrow. The patient thinks her abdominal pain may be related to drinking milk, and has since tried to cut milk out of her diet. Pt states she is taking medication for DM as prescribed with no side effects. Pt denies blurry vision. Pt denies CP, SOB, ZARCO, NVD. LILLIE QUIÑONES PA-C Attn: Accounting,[address] [facility] [address], [place], [address], [facility] 01/21/2024 11:21:33 05/12/2024 text/html Diabetes F/URepo rted bypatient.Context:norm al range of home blood sugars (in the low 100s); seeing eye doctor regularly; checking feet regularly Associated Symptoms:no weight gain; no weight loss; no dizziness; no sweats; no headaches; no confusion; no increased thirst; no increased appetite; no increased urination; no blurred vision; no numbness of feet; no calluses on feetHypertension F/UReported bypatient.Associated Symptoms:no dizziness; no lightheadedness; no chest pain; no shortness of breath; no palpitations; no edema; no calf pain with exertion Lifestyle:regular exercise; limiting/avoiding salt Medications:taking medications as directed; no side effects from medication 64 y/o F here for f/u chronic conditions. Pt doing well with current treatment. Pt needing refills on medications Pt is struggling with weight loss. LILLIE QUIÑONES PA-C Attn: Accounting,[address] [place], [address], [facility] 05/12/2024 16:11:49 OBGyn Episode Ob Episode Information Episode Created Date Number of Fetuses Patient Bloodtype Patient rh Status Prepregnancy Weight lbs Domestic Partner Domestic Partner Phone Father Name Cyber Systems Administrator Status 03/08/19 18 1 CLOSED Fetus Data First Name Last Name Admitted to NICU Weight (g) Sex Living Outcome Pediatric Complications Fetus ID Race Codes Race Delivery Type 3543.46 0704 F Full Term 19890 Vaginal Galo Calculation Initial Galo Date Initial Exam Date Initial Exam Provider Initial Ultrasound Date Last Menstrual Period Date Ultra Sound Weeks Gestation 0 Eighteen To Twenty Week Galo Update Ultra Sound Date Fundal Height At Umbil Quickening Date Ultra Sound Latest Weeks Gestation Final Galo Confirmed By Final Galo Confirmed Date Final Galo Date Ultra Sound Latest Days Gestation 0 0 Menstrual History Last Menstrual Date Menses Monthly On Bcp Conception Prior Menses Frequency Hcg Plus Date Menarche Onset Age Delivery Information Delivery Date Delivery Type Labor Anesthesia Weeks Gestation Incision Type Labor Labor Length Hrs Delivered By Post Complications Tubal Sterilization Discharge Date Comments 4 Regional-Ep idural 40 [facility] Discharge Information Feeding Method Contraceptive Method Maternal HG B and HCT Levels Ob Episode Information Episode Created Date Number of Fetuses Patient Bloodtype Patient rh Status Prepregnancy Weight lbs Domestic Partner Domestic Partner Phone Father Name Cyber Systems Administrator Status 03/08/19 18 1 CLOSED Fetus Data First Name Last Name Admitted to NICU Weight (g) Sex Living Outcome Pediatric Complications Fetus ID Race Codes Race Delivery Type 3855.53 2 F Full Term 14032 Vaginal Galo Calculation Initial Galo Date Initial Exam Date Initial Exam Provider Initial Ultrasound Date Last Menstrual Period Date Ultra Sound Weeks Gestation 0 Eighteen To Twenty Week Galo Update Ultra Sound Date Fundal Height At Umbil Quickening Date Ultra Sound Latest Weeks Gestation Final Galo Confirmed By Final Galo Confirmed Date Final Galo Date Ultra Sound Latest Days Gestation 0 0 Menstrual History Last Menstrual Date Menses Monthly On Bcp Conception Prior Menses Frequency Hcg Plus Date Menarche Onset Age Delivery Information Delivery Date Delivery Type Labor Anesthesia Weeks Gestation Incision Type Labor Labor Length Hrs Delivered By Post Complications Tubal Sterilization Discharge Date Comments 8 None 40 false [facility] Discharge Information Feeding Method Contraceptive Method Maternal HG B and HCT Levels
--- OUTSIDE RECORDS SUMMARY | 2024-07-06 14:44 | XMS_ITS | Patient Health Record ---
Author Organization [facility] Address [address] [facility] [address] Alexandro. [address] [place] [phone] Care Team Providers Care [employer] Revenue Officer Name Role Phone Art BARAHONA, [facility] Primary Care Provider Unavailobed Ray DREDGEMASTER-BC DREDGEMASTER-BC, Melba Unavailable Un available Allergies Allergen (clinical drug ingredient) Drug/Non Drug Allergy documented on EMR Reaction Allergy Type Onset Date Status Penicillin G Benzathine Unknown Drug Allergy Active Reason For Referral No Information Medications Medication SIG (Take, Route, Fr equency, Duration) Notes Start Date End Date Status Gas-X Active Carafate 1 GM/10ML 10 ml on an empty st omach Orally Twice a day for 30 day(s) 01/30/2019 Active Metoprolol Tartrate Active Pepcid AC Active Atorvastatin Calcium Active Nortriptyline HCl Ac tive Immunizations Vaccine Route Administration Date Status Comme nts Influenza Vaccination Unknown 01/30/2019 Refused Social History Tobacco Use: Social History Observation Description Date Details (start date - stop date) Current Smoker NA - NA Tobacco Use/Smoking Question Answer Notes Are you a current smoker How often do you smoke cigarettes? every day How many cigarettes a day do you smoke? 11-20 Section Notes: She moved from [place] in 8 around the onset of symptoms. Problems Problem Type SNOMED Code ICD Code Onset Dates Problem Status W/U Status Risk Notes Problem Epigastric pain (30487600) Epigastric pain (R10.13) Active confirmed She has experienced chronic abdominal pain with bloating and gas. She reports her undergone endoscopy at the onset of symptoms which was unrevealing per her report. These records are unavailable for review. She has also undergone CT scan and colonoscopy since the onset of symptoms. No significant abnormalities were seen however there was concerned regarding pancreatitis as her lipase was elevated. Would like to further evaluate. She reports to have taken Carafate in the past when she was living in [place], therefore would like to consider bile gastritis/bile reflux. Other considerations include nonulcer dyspepsia, celiac disease, small intestinal bacterial overgrowth, pancreatitis, intermittent small bowel obstruction, or other. Problem 790040553 Flatulence (R14.3) Active confirmed Problem Bloating (84823251) Bloating (R14.0) Active confirmed Problem 540895945 History of colon polyps (Z86.010) Active confirmed Problem 268842710 Irregular bowel habits (R19.8) Active confirmed Chronic bowel irregularity with negative colonoscopy. Differential diagnosis includes irritable bowel syndrome, celiac disease, small intestinal bacterial overgrowth, food intolerances, pancreatic insuffiency, or other. Plan Of Treatment Pending Test Test Name Order Date Fructose Breath Test 02/13/2019 Initiate SIBO 01/30/2019 Insurance Providers Payer Name Payer Address Payer Phone Subscriber Number Group Number Insured Name Patient Relationship to Insured Coverage Start Date Coverage End Date [employer] Choice Pos E2 [address] [place] [address] [id number] Artem Rehman Spouse - patient is the spouse of the insured Medicare E2 [address] [address] [place] [address] [id number] Mireya Rehman Self - patient is the insured Medical (General) History Medical History History ICD Code Pancreatitis Colon polyps Hypertension Interstitial cystitis Surgical History Surgery Date(Month/Year) Colonoscopy 2019 Upper endoscopy 2018 Cholecystectomy (biliary dyskinesia) 199 6
--- OUTSIDE RECORDS SUMMARY | 2024-07-06 14:45 | XMS_ITS | Clinical Summary ---
Author Organization [facility] Address [address] [place] [id number] Care Team Providers [employer] Recruiter Name Role Phone Penny Ray PA-C Primary Care Provider + Allergies Active Allergy Reactions Criticality Noted Date Comments Penicillins Hives,Other (see comment) Low 8 Medications atorvastatin 40 MG tablet atorvastatin 40 mg tablet TAKE 1 TABLET BY MOUTH ONCE DAILY Active hydroCHLOROthia zide 25 MG tablet Take 25 mg by mouth daily. 2 Active HYDROcodone-cuba taminophen 5-325 MG tablet 1 Active metoprolol succinate ER 25 MG 24 hr tablet TAKE 1 TABLET BY MOUTH ONCE DAILY DIRECTED FOR 30 DAYS 2 Active losartan 50 MG tablet Take 50 mg by mouth daily. 2 Active nortriptyline 10 MG capsule Take 10 mg by mouth daily. Active traMADol 50 MG tablet Take 50 mg by mouth 2 (two) times daily as needed. 2 Active Social History Tobacco Use Types Packs/Day Years Used Date Smoking Tobacco: Every Day Smokeless Tobacco: Never Comments Unknown Sex and Gender Information Value Date Recorded Sex Assigned at Not on file Legal Sex Female 2:35 PM CDT Gender Identity Not on file Sexual Orientation Not on file Last Filed Vital Signs Vital Sign Reading Time Taken Comments Blood Pressure 106/62 05/12/2021 1:22 PM CDT Pulse 60 05/12/2021 1:22 PM CDT Temperature - - Respiratory Rate - - Oxygen Saturation - - Inhaled Oxygen Concentration - - Weight 87.6 kg (193 lb 3.2 oz) 05/12/2021 1:22 P M CDT Height 162.6 cm (5' 4 ) 05/12/2021 1:22 PM CDT Body Mass Index 33.16 05/12/2021 1:22 PM CDT Plan of Treatment Health Maintenance Due Date Last Done Comments Cervical Cancer Screening Pa p Smear (Age 30 to 64) Every 3 Years 1961 Colorectal Cancer Screening Colonoscopy (10 Years) 1961 Annual Physical 1964 Hepatitis C 1979 Pneumococcal Vaccine: 50+ Years (1 of 2 - PCV) 1980 Cervical Cancer Screening Pa p with HPV Testing (Age 30 to 64) Every 5 Years 1991 Cervical Cancer Screening wi th HPV 1991 Mammogram Screening 2001 Zoster Vaccines (1 of 2) 2011 COVID-19 Vaccine (2023-2 5 season) 2023 02/14/2021, 06/17/2020, 05/23/2020 DTaP, Tdap and Td Vaccines ( 2 - Td or Tdap) 01/22/2027 01/22/2017 RSV Immunization or 60+ Years (1 - 1-dose 75+ series) 2036 Meningococcal B Vaccine Aged Out No l onger eligible based on patient's age to complete this topic Meningococcal Vaccine Aged Out No dustin wallace eligible based on patient's age to complete this topic RSV Immunizations Under 20 Months Aged Out No longer eligible b ased on patient's age to complete this topic Insurance MEDICARE [employer] International Recruiter Relationship Specialty Start Date End Date Penny Ray PA-C [address] [place] [phone] PCP - General PHYSICIAN REGULATOR OPERATOR 02/26/21
[2024-07-06 15:02] VITALS: PULSE 73
[2024-07-06 15:03] VITALS: BP 152/76; PULSE 66; RESP 18; TEMP 36.6; O2SAT 100
[2024-07-06 15:11] LABS: Basophils Absolute Auto 0.1 K/mm3 (0.0-0.1); Basophils Percent Auto 0.8 % (0.2-1.2); Eosinophils Absolute Auto 0.1 K/mm3 (0-0.3); Eosinophils Percent Auto 1.1 % (0-4.4); Hematocrit 39.7 % (37.0-47.0); Immature Granulocyte Absolute 0.06 K/mm3 (0.00-0.031); Immature Granulocyte Percent A 0.6 % (0-0.5); Lymphocytes Percent Auto 25.3 % (18.3-44.2); Mean Corpuscular HGB Conc 32.7 g/dl (32-36); Mean Corpuscular Hemoglobin 29.7 pg (26-34); Mean Corpuscular Volume 90.6 fl (80-100); Mean Platelet Volume 9.6 fl (7.4-10.4); Monocytes Absolute Auto 0.8 K/mm3 (0.1-0.6); Neutrophils Absolute Auto 6.3 K/mm3 (1.3-6.7); Neutrophils Percent Auto 64.2 % (45.5-73.1); Platelet Count Result 350 k/mm3 (150-375); Red Blood Count 4.38 M/mm3 (4.2-5.4); Red Cell Distribution Width 12.9 % (11.5-14.5); White Blood Count 9.9 K/mm3 (4.5-10.0)
--- OUTSIDE RECORDS SUMMARY | 2024-07-06 15:12 | XMS_ITS | Clinical Summary ---
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 She should definitely discontinue smoking and would recommend evaluation by our cycle specialist Trigger thumb of right hand 04/07/2019 Assessment & Plan (04/07/2019 4:44 PM ELECTRODE CLEANER): Consideration for decompression of the trigger thumb [...] on file Legal Sex Female 1:52 PM ELECTRODE CLEANER Gender Identity Not on file Sexual Orientation Not on file Obstetrics History Last Filed Vital Signs Vital Sign Reading Time Taken Comments Blood Pressure - - Pulse - - Temperature - - Respiratory Rate - - Oxygen Saturation - - Inhaled Oxygen Concentration - - Weight 87.3 kg (192 lb 6.4 oz) 04/07/2019 2:16 P M ELECTRODE CLEANER Height 162.6 cm (5' 4 ) 04/07/2019 2:16 PM ELECTRODE CLEANER Body Mass Index 33.03 04/07/2019 2:16 PM ELECTRODE CLEANER Plan of Treatment Health Maintenance Due Date [...] (2 - Td or Tdap) 01/22/2027 Insurance [facility] PPO MEDICARE [facility] Address: [address] [address] [place] [address] MEDICARE [facility] Address: [address] [address] [place] [address] [facility] Care Teams Unit Nurse Relationship Specialty Start Date End Date Hayley Quinones PA [facility] [place] [address] PCP - General Physician Residential Green Building Designer 06/02/20
--- OUTSIDE RECORDS SUMMARY | 2024-07-06 15:12 | XMS_ITS | CONTINUITY OF CARE DOCUMENT ---
Author Name gaby, gaby Address Unknown Organization [facility] Address [address] [place] [address] Phone [phone] Care Team Providers Care Residential Mental Health Worker Name Role Phone Oren BARAHONA, Ciera Unavailable FREDY BREWER Unavailable FREDY BREWER Unavailable [phone] PROBLEMS Condition Status Date Provider Notes Hypertension active Ciera Lott MD Hyperlipidemia active Ciera Lott MD Chest pain- Nl echo , stress test , Ca score 06/2019 active Ciera Lott MD Palpitations active Ciera Lott MD Hiatal hernia active Ciera Lott MD Tobacco abuse--quit active Ciera Lott MD ARTHRITIS active Ciera Lott MD Venous insufficiency active Ciera Lott MD Headache active Ronit East MD Family history of CAD active Ronit christianson MD CAD Calcium Score - 06/2019 active Ciera howell MD Prediabetes active Ciera Lott MD RUTHIE active Haleypippa Villamidawna HOST/HOSTESS RESTAURANT ENCOUNTERS Date Type Provider Location Encounter Diag nosis 3 - 3 In-person encounter Office Visit [place] [facility] RUTHIE 1 - 1 In-person encounter Office Visit Ciera Lott MD [place] [facility] 1 - 1 In-person encounter Office Visit Ciera Lott MD [place] [facility] Chest pain- Nl echo , stress test , Ca score , 06/2019Tobacco abuse--quitPrediabetes 2 - 2 In-person encounter Office Visit Ciera Lott MD [place] [facility] 2 - 2 In-person encounter Office Visit Ciera Lott MD [place] [facility] Chest pain- Nl echo , stress test , Ca score 1, 06/2019 0 - 0 In-person encounter Office Visit Ronit East MD [facility] HeadacheFamily history of CADCAD Calcium Score 1- 06/2019 6 - 6 In-person encounter Office Visit C[facility] 4 - 4 In-person encounter Office Visit Ciera Lott MD [place] [facility] Venous insufficiency 7 - 7 In-person encounter Office Visit Ciera Lott MD [place] [facility] ARTHRITIS 2 - 8 In-person encounter Office Visit Ciera Lott MD [place] Tobacco abuse--quit 9 - 0 In-person encounter Office Visit Ciera Lott MD [place] [facility] HypertensionHyperlipidemiaChest pain- Nl echo , stress [...] height E&M 64 [in_i] Moraima Perez [facility] Body Mass Index (Ratio) 32.78 kg/m2 Omar Lott MD blood pressure, cuff size large De florencia [place] blood pressure, diastolic 84 mm[Hg] De florencia [place] blood pressure, systolic 136 mm[Hg] [facility] nayely [place] oxygen saturation, oximetry 96 % [facility] respiratory rate E&M 16 /min [facility] pulse rate 66 /min Margo [facility] weight E&M 191 [lb_av] Margo [facility] height E&M 64 [in_i] Margo Hollnadia chamberlain Body Mass Index (Ratio) 31.92 kg/m2 Omar Lott MD blood pressure, resting Yes [facility] jason Ford blood pressure, diastolic 65 mm[Hg] [facility] [place] blood pressure, systolic 120 mm[Hg] [facility] Ford pulse rate 59 /min [facility] Morales mccall oxygen saturation, oximetry 98 % [facility] respiratory rate E&M 18 /min [facility] maida [place] weight E&M 186 [lb_av] [facility] Morales mccall height E&M 64 [in_i] [facility] Andrew mccall Body Mass Index (Ratio) 32.78 [...] [place] blood pressure, systolic 110 mm[Hg] Lorraine mnacilla [place] oxygen saturation, oximetry 98 % Claudette [...] Lott MD blood pressure, resting Yes [facility] blood pressure, diastolic 80 mm[Hg] Ki [facility] blood pressure, systolic 120 mm[Hg] Mercedes kathleen Fleischmanns oxygen saturation, oximetry 98 % [facility] respiratory rate E&M 16 /min [facility] pulse rate 88 /min [facility] weight E&M 183 [lb_av] [facility] height E&M 64 [in_i] [facility] ALLERGIES Allergy Name Onset Date Reaction Criticality Status PENICILLIN hives hives Low Criticality active HISTORY OF MEDICATION USE Medication Status Instructions Dates Provider Indications Com ments losartan 50 mg tablet active Take 1 tab let by mouth once a day TAKE 1 TABLET BY MOUTH ONCE DAILY 04/10 Haley Ventimiglia HOST/HOSTESS RESTAURANT hydrochlorothiazide 25 mg tablet active TAKE 1 TABLET BY MOUTH EVERY DAY 04/10 Haley Ventimiglia HOST/HOSTESS RESTAURANT nortriptyline 25 mg capsule active Take 1 [...] ONCE DAILY 03/30 - 04/10 Haley Ventimiglia [facility] nortriptyline 25 mg capsule completed capsule by mouth every morning 06/11 - 08/22 Margo Jacobo gabapentin 300 mg capsule completed 1 tablet by mouth once a day 06/11 - 04/18 Ciera Lott MD hydrochlorothiazide 25 mg tablet completed Take 1 tablet by mouth once a day 11/21 - 04/10 Haleypippa Villamiglia HOST/HOSTESS RESTAURANT LISINOPRIL 40 MG ORAL TABLET completed ONE TAB. DAILY 05/04 - 03/30 Magui Espinosa VALSARTAN 80 MG ORAL TABLET completed one tab daily 04/29 - 05/04 Ciera Lott MD NORTRIPTYLINE HCL CAPSULE completed one cap once daily 10/02 - 06/11 Ciera Lott MD CHANTIX STARTING MONTH SHANTEL 0.5 MG [...] smoker. Ciera Lott MD drug use no Haley Ventimig charleen HOST/HOSTESS RESTAURANT alcohol use no Hlaey Ventimig charleen HOST/HOSTESS RESTAURANT smoking, year quit 2017 Moraima Chavez joaner [...] Policy type / Coverage type Massimo red green party ID [facility] Commercial insurance co aravind [id number] MEDICARE [place]ARY [place] [id number] 5 ADVANCE DIRECTIVES Name Date DISCUSSED - NO DECISION MADE TREATMENT PLAN Date Name Performer [id number],C,W ill plan home sleep study, d/t HTN, bradycardia, fatigue and frequent night time waking. O rders: 9 9214 MOD 30-39min (CPT-11152) [facility] Study Home (CPT-31095) [facility] [id number],C, H er updated medication list for this problem includes: Metoprolol Succinate 100 Mg Tablet Extended Release 24 Hr (Metoprolol succinate) ..... Take 1 tablet by mouth once a day [facility] [id number],C,c ontinues with compression stockings. [facility] [id number],C,P lease continue with statin therapy. Primary following lipids H er updated medication list for this problem includes: Atorvastatin 40 Mg Tablet (Atorvastatin) ..... Take 1 tablet by mouth once a day [facility] [id number],C,P atient blood pressure better controlled. Will continue [...] Take 1 tablet by mouth every day [facility] [id number],Filiberto Bullock i [id number],S, Filiberto Rodriguez i [id number],S, Filibertoevelyn Rodriguez i [id number],S, Filibertoevelyn Rodriguez i [id number],B, Filibertoevelyn Rodriguez i [id number],B, Filiberto rosangela Cardiology:Will plan home sleep study, d/t HTN, bradycardia, fatigue and frequent night time waking. O rders: 9 9214 MOD 30-39min (CPT-43332) S [facility] Study Home (CPT-36234) [facility] Cardiology: H er updated medication list for this problem includes: Metoprolol Succinate 100 Mg Tablet Extended Release 24 Hr (Metoprolol succinate) ..... Take 1 tablet by mouth once a day [facility] Cardiology:continues with compre ssion stockings. [facility] Cardiology:Please co ntinue with statin therapy. Primary following lipids H er updated medication list for this problem includes: Atorvastatin 40 Mg Tablet (Atorvastatin) ..... Take 1 tablet by mouth once a day [facility] Cardiology:Patient b lood pressure better controlled. Will [...] Take 1 tablet by mouth every day [facility] Cardiology [facility] Ahmedzai Cardiology Filiberto Ahmedzai Cardiology Filiberto Ahmedzai Cardiology Filiberto Ahmedzai Cardiology Filiberto Ahmedzai Cardiology Filiberto Ahmedzai Cardiology Ceira Lott MD Cardiology Ciera Lott MD Cardiology [...] CT scan of the [facility] done at [facility], which she reports was negative for an [...] Ciera augustine MD Cardiology Follow up Ciera aguustine MD Cardiology:Will chec k echo and stress nuc. Will also request stress test results from Dr. Arias in [place], [place]. Ciera Lott MD Cardiology:Will chec k [...]
--- OUTSIDE RECORDS SUMMARY | 2024-07-06 15:12 | XMS_ITS | Clinical Summary ---
Author Organization [facility] [employer] Address [address] [place] [address] Care Team Providers Care Fisher Hoop Net Name Role Phone Penny Ray PA-C Primary Care Provider + Source Comments [facility],non-owned Affiliates and Associated Physician Practices is amultiple site organization consisting of ambulatory clinics and hospital sitesin [place], [place], [place] and [place]. This disclosure is being madepursuant to the Care Everywhere program and may not contain all information available regarding this patient. Last updated 17.[facility] [employer] Allergies Active Allergy Reactions Criticality Noted Date [...] 6 hours as needed Active HYDROcodone-cuba taminophen ([place]) 5-325 MG tablet Take 1 (one) tablet [...] Comments Blood Pressure 116/60 03/15/2023 12:45 PM EXTRACTOR OPERATOR HELPER Pulse 64 03/15/2023 12:45 PM EXTRACTOR OPERATOR HELPER Temperature 35.9 C (96.6 F) 03/15/2023 11:46 AM EXTRACTOR OPERATOR HELPER Respiratory Rate 18 03/15/2023 12:45 PM EXTRACTOR OPERATOR HELPER Oxygen Saturation 98% 03/15/2023 12:45 PM EXTRACTOR OPERATOR HELPER Inhaled Oxygen Concentration - - Weight 88.1 kg (194 lb 3.2 oz) 03/15/2023 8:15 A M EXTRACTOR OPERATOR HELPER Height 162.6 cm (5' 4 ) 03/15/2023 8:15 AM EXTRACTOR OPERATOR HELPER Body Mass Index 33.33 03/15/2023 8:15 AM EXTRACTOR OPERATOR HELPER Plan of Treatment Health Maintenance Due Date [...] age to complete this topic Insurance MEDICARE [facility] MEDICARE [facility] Care Teams Fisher Hoop Net Relationship Specialty Start Date End Date Penny Ray PA-C [address] [place] [address] PCP - General Physician Electro Mechanical Assembler 03/15/23
--- OUTSIDE RECORDS SUMMARY | 2024-07-06 15:12 | XMS_ITS | Referral Summary ---
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 She should definitely discontinue smoking and would recommend evaluation by our deployment specialist Trigger thumb of right hand 04/07/2019 Assessment & Plan (04/07/2019 4:44 PM KNOWLEDGE ENGINEER): Consideration for decompression of the trigger thumb [...] on file Legal Sex Female 1:52 PM KNOWLEDGE ENGINEER Gender Identity Not on file Sexual Orientation Not on file Last Filed Vital Signs Vital Sign Reading Time Taken Comments Blood Pressure - - Pulse - - Temperature - - Respiratory Rate - - Oxygen Saturation - - Inhaled Oxygen Concentration - - Weight 87.3 kg (192 lb 6.4 oz) 04/07/2019 2:16 P M KNOWLEDGE ENGINEER Height 162.6 cm (5' 4 ) 04/07/2019 2:16 PM KNOWLEDGE ENGINEER Body Mass Index 33.03 04/07/2019 2:16 PM KNOWLEDGE ENGINEER Plan of Treatment Not on file Insurance MEDICARE MEDICARE [facility] Care Teams Mess Attendant Relationship Specialty Start Date End Date Hayley Quinones PA [address] [place], [place] [id number] PCP - General Physician Spectrographer 06/02/20
--- OUTSIDE RECORDS SUMMARY | 2024-07-06 15:13 | XMS_ITS | Clinical Summary ---
Author Organization [facility] Address [address] [place] [address] Care Team Providers Care Rn Icu Name Role Phone Penny Ray PA-C Primary [...] complete this topic Insurance MEDICARE Care Teams Rn Icu Relationship Specialty Start Date End Date Penny Ray PA-C [address] [place] [phone] PCP - General PHYSICIAN [facility] 02/26/21
[2024-07-06 15:21] LABS: Alanine Aminotransferase 33 U/L (6-35); Albumin Level 4.6 g/dL (3.5-5.1); Alkaline Phosphatase 77 U/L (38-126); Anion Gap 9 mmol/L (4-12); Aspartate Amino Transferase 33 U/L (14-36); Bilirubin,Total 0.4 mg/dL (0.2-1.3); Blood Urea Nitrogen 27 mg/dL (7-17); Calcium 9.8 mg/dL (8.4-10.2); Carbon Dioxide 27 mmol/L (22-30); Chloride 102 mmol/L (98-107); Estimated CRCL calculation 80 ml/min; Estimated Glomerular Filt Rate > 60; Glucose 108 mg/dL (65-110); INR 0.9; Lipase 107 U/L (23-300); Partial Thromboplastin Time 26.1 Seconds (22.3-36.8); Potassium 3.7 mmol/L (3.4-5.0); Prothrombin Time 12.2 Seconds (11.1-14.7); Sodium 138 mmol/L (137-145)
--- NOTE | 2024-07-06 15:23 | ED_ITS ---
HPI - General Adult General Chief complaint: Chest Pain Stated complaint: High BP x 3 days, Chest pain Time Seen by Provider: 07/06/24 14:59 History of Present Illness HPI narrative: 64-year-old female presents emergency department for evaluation for midsternal chest pain. Patient states she has had some worsening depression and anxiety due to loss of 2 friends and a recent argument with a family member. Patient states today she was having some increased chest pressure. Patient states he does have history of costochondritis in this feels similar but she is also states that her blood pressures have been running high. Patient states she has had no significant dietary changes and patient has been taking her blood pressure medications as directed. Patient also does report some increased bilateral calf tenderness. Related Data Home Medications ?Medication ?Instructions ?Recorded ?Confirmed ?Last Taken ?Type atorvastatin 40 mg tablet 40 mg PO HS 05/04/19 05/04/19 Unknown History metoprolol succinate 50 mg 50 mg PO HS 05/04/19 05/04/19 Unknown History tablet,extended release 24 hr nortriptyline 10 mg capsule 20 mg PO HS 05/04/19 05/04/19 Unknown History valsartan 80 mg tablet 80 mg PO DAILY 05/04/19 05/04/19 Unknown History Allergies Allergy/AdvReac Type Severity Reaction Status Date / Time Penicillins Allergy Unknown Unknown Verified 07/06/24 14:43 Review of Systems 2 Review of Systems: All systems reviewed & are unremarkable except as noted in HPI and below PMFSH Past Medical History Medical History (Updated 07/07/24 @ 00:00 by John Manuel) Migraine Chronic abdominal pain Arthralgia Other and unspecified hyperlipidemia Interstitial cystitis Cervical spinal stenosis Hypertension Surgical History Surgical History (Updated 01/02/24 @ 01:00 by Keisha Guadalupe MD) History of cholecystectomy 1995 Family History Family History Father CAD (coronary artery disease) Cerebral aneurysm Diabetes mellitus Sibling Diabetes mellitus Social History Social History (Updated 05/04/19 @ 09:38 by Sigifredo Murguia MD) Smoking status: Former smoker Additional smoking assessment comments: Quit smoking 1 month ago, previously 1 pack/day Alcohol intake: never Substance use: never Occupation/Education: retired Additional occupation/education comments: disabled Gender identity (if verbalized by the patient): Female Spiritual care concerns: Yes (Evangelical) Agree to blood products: Yes Exam 2 Narrative: APPEARANCE: Well appearing, no pain, no distress, well-nourished. HEAD: normocephalic, atraumatic. EYES: PERRLA/EOMI, conjunctivae clear. NOSE: Normal no drainage EARS:TMS clear with good light reflex. THROAT: Pharynx clear, no exudate. NECK: Supple. No adenopathy, no masses. RESPIRATORY: Airway patent, respirations nonlabored. Clear to auscultation bilaterally, no rales, rhonchi, wheezing. CARDIOVASCULAR: Regular rate and rhythm without murmurs rubs or gallops. ABDOMINAL: Soft, nontender, nondistended, normal bowel sounds MUSCULOSKELETAL: Bilateral calf tenderness to palpation NEURO: Alert. Cranial nerves II through XII intact. Good gait. Good coordination SKIN: Warm, dry. Normal Color Course Vital Signs Vital signs: Vital Signs Pulse Rate 73 07/06/24 15:02 Temperature 97.8 F 07/06/24 15:03 Pulse Rate 56 L 07/06/24 18:57 Respiratory Rate 18 07/06/24 18:57 Blood Pressure 144/79 H 07/06/24 18:57 Pulse Oximetry 98 07/06/24 18:57 Oxygen Delivery Room Air 07/06/24 15:03 Medical Decision Making [facility] Narrative Medical decision making narrative: 64-year-old female presents emergency department for evaluation for chest wall discomfort. Patient had negative serial EKGs and negative serial troponins. Patient is afebrile with no leukocytosis and hemoglobin 13.0. Patient's D-dimer was also negative. No concern for pulmonary embolism. No concern for ACS at this time. Patient does have a reproducible chest wall tenderness to palpation that is consistent with her prior episodes of costochondritis. Chest x-ray showed no acute cardiopulmonary abnormality. Patient was encouraged of close follow-up with her primary care physician for additional outpatient cardiac testing. Patient was provided some Ativan for anxiety as well. All questions concerns were addressed patient was well-appearing at time of discharge. Differential Diagnosis Differential Diagnosis: Pulmonary embolism, ACS, anxiety, costochondritis or pleurisy Vital Signs Vital Signs: Vital Signs Pulse Rate 73 07/06/24 15:02 Temperature 97.8 F 07/06/24 15:03 Pulse Rate 56 L 07/06/24 18:57 Respiratory Rate 18 07/06/24 18:57 Blood Pressure 144/79 H 07/06/24 18:57 Pulse Oximetry 98 07/06/24 18:57 Oxygen Delivery Room Air 07/06/24 15:03 Lab Data Lab results reviewed: Yes I reviewed the patient's lab results. 07/06/24 15:06 07/06/24 15:06 Labs: Lab Results 07/06/24 07/06/24 Range/Units 15:06 17:55 WBC 9.9 (4.5-10.0) K/mm3 RBC 4.38 (4.2-5.4) M/mm3 Hgb 13.0 (12.0-15.0) g/dL Hct 39.7 (37.0-47.0) % MCV 90.6 (80-100) fl MCH 29.7 (26-34) pg MCHC 32.7 (32-36) g/dl RDW 12.9 (11.5-14.5) % Plt Count 350 (150-375) k/mm3 MPV 9.6 (7.4-10.4) fl Immature Gran % (Auto) 0.6 H (0-0.5) % Neut % (Auto) 64.2 (45.5-73.1) % Lymph % (Auto) 25.3 (18.3-44.2) % [place] % (Auto) 8.0 (2.6-8.5) % Eos % (Auto) 1.1 (0-4.4) % Baso % (Auto) 0.8 (0.2-1.2) % Lymph # (Auto) 2.50 (0.9-3.2) K/mm3 [place] # (Auto) 0.8 H (0.1-0.6) K/mm3 Eos # (Auto) 0.1 (0-0.3) K/mm3 Baso # (Auto) 0.1 (0.0-0.1) K/mm3 Abs Immat Gran (auto) 0.06 H (0.00-0.031) K/mm3 Absolute Neuts (auto) 6.3 (1.3-6.7) K/mm3 Absolute Nucleated RBC 0.000 (0.0-0.012) K/mm3 Nucleated RBC % 0.0 (0.0-0.2) % PT 12.2 (11.1-14.7) Seconds INR 0.9 APTT 26.1 (22.3-36.8) Seconds D-Dimer 0.34 (<0.48) ug/mL Sodium 138 (137-145) mmol/L Potassium 3.7 (3.4-5.0) mmol/L Chloride 102 (98-107) mmol/L Carbon Dioxide 27 (22-30) mmol/L Anion Gap 9 (4-12) mmol/L BUN 27 H (7-17) mg/dL Creatinine 0.68 L (0.7-1.0) mg/dL Estim Creat Clear Calc 80 ml/min Estimated GFR > 60 (59 - ) Glucose 108 (65-110) mg/dL Calcium 9.8 (8.4-10.2) mg/dL Total Bilirubin 0.4 (0.2-1.3) mg/dL AST 33 (14-36) U/L ALT 33 (6-35) U/L Alkaline Phosphatase 77 (38-126) U/L Troponin I < 0.012 < 0.012 (0.000-0.034) ng/mL Total Protein 8.0 (6.3-8.2) g/dL Albumin 4.6 (3.5-5.1) g/dL Lipase 107 (23-300) U/L Imaging Data Radiologist's impression: Impressions Chest X-Ray 07/06/24 15:35 IMPRESSION: No acute cardiopulmonary pathology. Discharge Plan Discharge Clinical Impression: Chest wall tenderness Patient Disposition: Home Condition: Stable Instructions: Antibiotic Form, Costochondritis (ED), Chest Wall Pain (ED) Additional Instructions: Ibuprofen for pain control. Ativan as needed for anxiety control. Have close follow-up with your primary care physician for additional outpatient cardiac testing. If you have any worsening symptoms then please call or return to the emergency department. Patient Language: Montserratian Prescriptions: New lorazepam [Ativan] 0.5 mg tablet 0.5 mg PO BID PRN (Reason: anxiety) Qty: 14 0RF No Action benzonatate 100 mg capsule 100 mg PO BID PRN (Reason: cough) Qty: 20 0RF ibuprofen 600 mg tablet 600 mg PO TID PRN (Reason: pain) Qty: 30 0RF acetaminophen 500 mg capsule 1,000 mg PO Q6H PRN (Reason: pain) Qty: 30 0RF guaifenesin 200 mg tablet 200 mg PO QID PRN (Reason: cough) Qty: 30 0RF doxycycline hyclate 100 mg capsule 100 mg PO DAILY 5 Days Qty: 5 0RF ondansetron 4 mg tablet,disintegrating 4 mg PO Q8H PRN (Reason: nausea and vomiting) Qty: 20 0RF hydrocodone-acetaminophen 5-325 mg tablet 1 tablet PO Q12H PRN (Reason: pain) Qty: 14 0RF atorvastatin 40 mg tablet 40 mg PO HS metoprolol succinate 50 mg tablet extended release 24 hr 50 mg PO HS valsartan 80 mg Tablet 80 mg PO DAILY nortriptyline 10 mg Capsule 20 mg PO HS Follow-up/Referrals: Ishmael,SHAUNA Garcia [Primary Care Provider] - Quality HEART score for chest pain patients History: slightly suspicious ECG: normal Age: > 45 and < 65 years Risk factors: 1 or 2 risk factors Troponin: < or = to 1x normal limit Heart score: 2
[2024-07-06] MEDS: KETOROLAC 15 MG/ML VIAL (*BKC) IV PUSH (15:28)
[2024-07-06] MEDS: LORazepam INJ (*CRX) 2 MG/ML VIAL 1 MG IV PUSH (15:29)
[2024-07-06 15:40] LABS: Troponin I < 0.012 ng/mL (0.000-0.034)
[2024-07-06 16:07] VITALS: BP 140/79; PULSE 62; RESP 18; O2SAT 98
[2024-07-06 16:17] LABS: D Dimer 0.34 ug/mL (<0.48)
[2024-07-06 16:52] VITALS: BP 140/74; PULSE 57; RESP 17; O2SAT 98
[2024-07-06 17:51] VITALS: BP 144/79; PULSE 63; RESP 15; O2SAT 100
[2024-07-06 18:24] LABS: Troponin I < 0.012 ng/mL (0.000-0.034)
[2024-07-06 18:57] VITALS: BP 144/79; PULSE 56; RESP 18; O2SAT 98
== END 2024-07-06 19:02 | disposition home or self-care (01) ==
PROVIDERS: Emergency Provider Emergency Medicine; PCP Physician Assistant Medical
DX: R07.89 Other chest pain (principal); I10 Essential (primary) hypertension; E78.5 Hyperlipidemia, unspecified; N30.10 Interstitial cystitis (chronic) without hematuria; F41.9 Anxiety disorder, unspecified; F32.A Depression, unspecified; Z87.891 Personal history of nicotine dependence; Z90.49 Acquired absence of other specified parts of digestive tract; Z79.899 Other long term (current) drug therapy; R94.31 Abnormal electrocardiogram [ECG] [EKG]
CPT/HCPCS: 36415; 71046; 80053; 83690; 84484; 85025; 85380; 85610; 85730; 93005; 96374; 96375; 99284; J1885; J2060

== ENCOUNTER 2024-09-02 14:27 | Outpatient (CLI) | payer OTHER, MEDICARE, SELFPAY ==
--- NOTE | ~2024-09-02 | MM_ITS ---
EXAMINATION: MM screening mariam BI w angela HISTORY: Screening TECHNIQUE: Craniocaudal and mediolateral oblique 3-D tomosynthesis images were obtained and synthetic 2-D images were generated. CAD analysis was submitted and interpreted. COMPARISON: Comparison to multiple prior studies sequentially, with oldest reviewed study dated 05/2017. BREAST PARENCHYMAL COMPOSITION: Not Dense: The breasts are almost entirely fatty. FINDINGS: There is no evidence of suspicious mass, calcification, or architectural distortion to sugg est malignancy in either breast. There has been no suspicious interval change. IMPRESSION: 1. No mammographic evidence of malignancy. 2. Recommend routine screening mammography in one year. BI-RADS Category 1: Negative Reviewed, dictated and finalized at location A.
--- OUTSIDE RECORDS SUMMARY | 2024-09-02 14:31 | XMS_ITS | Clinical Summary ---
Author Organization [facility] [email or web address] Address [address] [place] [address] Care Team Providers Care Cashiers Bussers Food Runners Name Role Phone Penny Ray PA-C Primary Care Provider + Source Comments [facility],non-owned Affiliates and Associated Physician Practices is amultiple site organization consisting of ambulatory clinics and hospital sitesin [place], [place], [place] and [place]. This disclosure is being madepursuant to the Care Everywhere program and may not contain all information available regarding this patient. Last updated 17.[facility] [email or web address] Allergies Active Allergy Reactions Criticality Noted Date [...] 6 hours as needed Active HYDROcodone-cuba taminophen ([place]) 5-325 MG tablet Take 1 (one) tablet [...] Comments Blood Pressure 116/60 03/15/2023 12:45 PM ARCHERY INSTRUCTOR Pulse 64 03/15/2023 12:45 PM ARCHERY INSTRUCTOR Temperature 35.9 C (96.6 F) 03/15/2023 11:46 AM ARCHERY INSTRUCTOR Respiratory Rate 18 03/15/2023 12:45 PM ARCHERY INSTRUCTOR Oxygen Saturation 98% 03/15/2023 12:45 PM ARCHERY INSTRUCTOR Inhaled Oxygen Concentration - - Weight 88.1 kg (194 lb 3.2 oz) 03/15/2023 8:15 A M ARCHERY INSTRUCTOR Height 162.6 cm (5' 4) 03/15/2023 8:15 AM ARCHERY INSTRUCTOR Body Mass Index 33.33 03/15/2023 8:15 AM ARCHERY INSTRUCTOR Plan of Treatment Health Maintenance Due Date Last Done Comments COLOGUARD (AGES 45-75) - COL ON CA SCREENING 1961 COLON MONITORING 1961 COLONOSCOPY - COLON CA SCREENING 1961 CT COLONOGRAPHY - COLON CA SCREENING 1961 Colorectal Cancer Screening 1961 FIT - COLON CA SCREENING 1961 FLEX SIG - COLON CA SCREENING 1961 MAMMOGRAM 1961 MEDICARE AWV 12 MONTHS 1961 HIV SCREENING 1976 HEPATITIS C SCREENING 04/15/1979 DTAP/TDAP/TD VACCINES (1 - Tdap) 1980 PNEUMOCOCCAL VACCINE 50+ (1 of 2 - PCV) 1980 PAP SMEAR 1982 ZOSTER VACCINE (1 of 2) 2011 SCREENING FOR DIABETES 12/25/2017 Respiratory Syncytial Virus (RSV) Vaccine Pt: or over 60 yrs (1 - Risk 60-74 years 1-dose series) 2021 COVID-19 VACCINE (3 - 2023-2 5 season) 2023 06/17/2020, 05/23/2020 DEPRESSION SCREENING 02/27/2024 INFLUENZA VACCINE (#1) 2024 HEPATITIS B VACCINE Aged Out No [...] age to complete this topic Insurance MEDICARE [facility] MEDICARE [facility] Care Teams Cashiers Bussers Food Runners Relationship Specialty Start Date End Date Penny Ray PA-C [address] [place] [address] PCP - General Physician Pit Worker Power Shovel 03/15/23
--- OUTSIDE RECORDS SUMMARY | 2024-09-02 14:31 | XMS_ITS | Patient Health Record ---
Author Organization [facility] Address [address] Alexandro. [address] [place] [id number] Care Team Providers Care Net Sorter Name Role Phone Art BARAHONA, [facility] Primary Care Provider Unavaila shakira Ray FAN ENGINE ENGINEER-BC FAN ENGINE ENGINEER-BC, Melba Unavailable Un available Allergies Allergen (clinical [...] smoke? 11-20 Section Notes: She moved from [place] in 8 around the onset of symptoms. Problems Problem Type SNOMED Code ICD Code Onset Dates Problem Status W/U Status Risk Notes Problem Epigastric pain (37658930) Epigastric pain (R10.13) Active confirmed She has [...] the past when she was living in [place], therefore would like to consider bile gastritis/bile reflux. Other considerations include nonulcer dyspepsia, celiac disease, small intestinal bacterial overgrowth, pancreatitis, intermittent small bowel obstruction, or other. Problem [id number] Flatulence (R14.3) Active confirmed Problem Bloating (04676433) Bloating (R14.0) Active confirmed Problem 952722948 History of colon polyps (Z86.010) Active confirmed Problem 516430202 Irregular bowel habits (R19.8) Active confirmed Chronic [...] Date [employer] E2 [address] [place] [address] [id number] Artem Rehman Spouse - patient is the spouse of the insured Medicare E2 [address] [address] [place] [address] [id number] Mireya Rehman Self - patient is the insured Medical (General) History Medical History History ICD Code Pancreatitis Colon polyps Hypertension Interstitial cystitis Surgical History Surgery Date(Month/Year) Colonoscopy 2019 Upper endoscopy 2018 Cholecystectomy (biliary dyskinesia) 199 6
--- OUTSIDE RECORDS SUMMARY | 2024-09-02 14:31 | XMS_ITS | Clinical Summary ---
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 She should definitely discontinue smoking and would recommend evaluation by our acls specialist Trigger thumb of right hand 04/07/2019 Assessment & Plan (04/07/2019 4:44 PM VENDING MACHINE TECHNICIAN): Consideration for decompression of the trigger thumb [...] on file Legal Sex Female 1:52 PM VENDING MACHINE TECHNICIAN Gender Identity Not on file Sexual Orientation Not on file Obstetrics History Last Filed Vital Signs Vital Sign Reading Time Taken Comments Blood Pressure - - Pulse - - Temperature - - Respiratory Rate - - Oxygen Saturation - - Inhaled Oxygen Concentration - - Weight 87.3 kg (192 lb 6.4 oz) 04/07/2019 2:16 P M VENDING MACHINE TECHNICIAN Height 162.6 cm (5' 4) 04/07/2019 2:16 PM VENDING MACHINE TECHNICIAN Body Mass Index 33.03 04/07/2019 2:16 PM VENDING MACHINE TECHNICIAN Plan of Treatment Health Maintenance Due Date [...] season) 2023 02/14/2021, 06/17/2020, 05/23/2020 Influenza Vaccine (Season Ended) 2024 DTaP/Tdap/Td Vaccine (2 - Td or Tdap) 01/22/2027 Insurance MEDICARE MEDICARE [facility] H[facility]/PPO Address: [address] [address] [place] [address] [facility] HMO/PPO Address: [address] [address] [place] [address] MEDICARE Care Teams City Dispatch Supervisor Relationship Specialty Start Date End Date Denis Quiñones PA [address] [place] [address] PCP - General Physician Bag Loader 07/28/24 Ede Espinoza MD [address] [place] [address] Referring Physician Physical Medicine and Rehabilitation 07/28/24
--- OUTSIDE RECORDS SUMMARY | 2024-09-02 14:31 | XMS_ITS | Clinical Summary ---
Author Organization [facility] Address [address] [place] [address] Care Team Providers Care Semiconductor Wafers Marker Name Role Phone Penny Ray PA-C Primary [...] P M CDT Height 162.6 cm (5' 4) 05/12/2021 1:22 PM CDT Body Mass Index [...] complete this topic Insurance MEDICARE Care Teams Semiconductor Wafers Marker Relationship Specialty Start Date End Date Penny Ray PA-C [address] [place] [id number] PCP - General PHYSICIAN SIGNALS ANALYST 02/26/21
--- OUTSIDE RECORDS SUMMARY | 2024-09-02 14:31 | XMS_ITS | Referral Summary ---
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 She should definitely discontinue smoking and would recommend evaluation by our web site specialist Trigger thumb of right hand 04/07/2019 Assessment & Plan (04/07/2019 4:44 PM OVERSEER KOSHER KITCHEN): Consideration for decompression of the trigger thumb [...] on file Legal Sex Female 1:52 PM OVERSEER KOSHER KITCHEN Gender Identity Not on file Sexual Orientation Not on file Last Filed Vital Signs Vital Sign Reading Time Taken Comments Blood Pressure - - Pulse - - Temperature - - Respiratory Rate - - Oxygen Saturation - - Inhaled Oxygen Concentration - - Weight 87.3 kg (192 lb 6.4 oz) 04/07/2019 2:16 P M OVERSEER KOSHER KITCHEN Height 162.6 cm (5' 4) 04/07/2019 2:16 PM OVERSEER KOSHER KITCHEN Body Mass Index 33.03 04/07/2019 2:16 PM OVERSEER KOSHER KITCHEN Plan of Treatment Not on file Insurance MEDICARE MEDICARE [facility] Address: [address] [address] [place] [address] [facility] H[facility]/PPO Address: [facility] [address] [place] [address] MEDICARE Care Teams Transport Tech Relationship Specialty Start Date End Date Denis Quiñ[place] [address] [place] [id number] PCP - General Physician Leather Whitener 07/28/24 Ede Espinoza MD [address] [place] [address] Referring Physician Physical Medicine and Rehabilitation 07/28/24
== END 2024-09-02 14:28 | disposition home or self-care (01) ==
LOC: ANHIMG 14:28
PROVIDERS: PCP Physician Assistant Medical; Visit Provider Physician Assistant Medical
DX: Z12.31 Encounter for screening mammogram for malignant neoplasm of breast (principal)
CPT/HCPCS: 77063; 77067